=== PATIENT | female | born 1970 | race Caucasian/White ===

== ENCOUNTER 2023-06-27 13:38 | Inpatient (IN) | payer OTHER, SELFPAY ==
[2023-06-27] VITALS (7 sets, daily range): BP systolic 61–145; BP diastolic 45–98; BMI 29.3; BMI 31.2
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
[2023-06-27 12:01] LABS: % Basophils 0.3 % (0-2); % Eosinophils 0.1 % (0-6); % Immature Granulocytes 0.1 % (0-0.5); % Lymphocytes 9.5 % (20.5-51.1); % Monocytes 9.7 % (1.7-9.3); % Neutrophils 80.3 % (42.2-75.2); Absolute Lymphocytes 0.6 10^3/uL (1.2-3.4); Absolute Monocytes 0.7 10^3/uL (0.1-0.6); Absolute Neutrophils 5.4 10^3/uL (1.4-6.5); Hematocrit 27.4 % (37.0-47.0); Hemoglobin 8.5 g/dL (12.0-16.0); Mean Corpuscular Hgb 21.8 pg (27.0-31.0); Mean Corpuscular Volume 70.3 fL (81.0-99.0); Mean Platelet Volume 10.4 fL (7.4-10.4); Nucleated Red Blood Cells % 0 %; Platelet Count 202 10^3/uL (130-400); Red Cell Dist. Width 15.9 % (11.5-14.5); White Blood Cell Count 6.8 10^3/uL (4.8-10.8)
[2023-06-27 12:31] LABS: Alkaline Phosphatase 313 U/L (38-126); Blood Urea Nitrogen 18 mg/dl (7-17); Calcium 9.4 mg/dl (8.4-10.2); Carbon Dioxide 27 mmol/L (22-30); Chloride 99 mmol/L (98-107); Glucose 110 mg/dl (70-99); Potassium 4.7 mmol/L (3.5-5.1); Sodium 131 mmol/L (135-145); eGFR > 60.00
[2023-06-27 12:32] LABS: ALT (SGPT) 43 U/L (0-35); AST (SGOT) 32 U/L (14-36); Albumin 3.3 g/dl (3.5-5.0); Total Bilirubin 0.4 mg/dl (0.2-1.3); Total Protein 6.8 g/dl (6.3-8.2)
[2023-06-27 13:19] LABS: Erythrocyte Sed Rate 21 mm/hour (0-20)
--- NOTE | 2023-06-27 13:29 | HPS.HSE ---
Family Physician
-
Family Physician: Silver Crowder
Chief Complaint
-
Severe right shoulder pain
History of Present Illness
53-year-old female with known history of IV drug abuse here complaining of severe right shoulder pain that started 2 days ago after she woke up from a nap. Denies any history of trauma.
Denies fevers, chills. Denies similar symptoms in the past.
She is a limited historian and does not want to be bothered with more detailed questions regarding her history of osteomyelitis. She told me to go check the chart.
Medical History
Past Medical History
Past Medical History: Reports Other
Additional Past Medical History:
IV drug abuse
HCV
COPD
Endometriosis
Chronic anemia
Peptic ulcer disease
Migraine headaches
Cervical spine osteomyelitis -2021
Lumbar spine osteomyelitis
Left upper extremity wound with osteomyelitis requiring amputation of the arm -2021
Septic emboli to the lungs and brain with subarachnoid hemorrhage -2018
Past Surgical History: Reports Appendectomy, Gynocological and Tonsilectomy
Social History
Tobacco: Smoker
Alcohol: Occasional
Drug: IVDA
Family History
Family History: Not pertinent
Allergies / Home Medications
Allergies reflects when Allergies were last updated in [employer].
Home Medications with original date entered in [employer]
Allergy/Medication List:
Allergies
Allergy/AdvReac Type Severity Reaction Status Date / Time
bee venom protein (honey bee) Allergy Anaphylaxis Verified 02/09/23 09:27
codeine Allergy Hives Verified 02/09/23 09:27
penicillin G Allergy Anaphylaxis Verified 02/09/23 09:27
/childhood
prochlorperazine edisylate Allergy Itching Verified 02/09/23 09:27
[From Compazine]
prochlorperazine maleate Allergy Itching Verified 02/09/23 09:27
[From Compazine]
sumatriptan [From Imitrex] Allergy LOW BP Verified 02/09/23 09:27
sumatriptan succinate Allergy LOW BP Verified 02/09/23 09:27
[From Imitrex]
Home Medications
albuterol sulfate 90 mcg/actuation aerosol inhaler (Proventil HFA) 2 puff inhalation Q4HPRN PRN asthma 01/24/09
sucralfate 100 mg/mL oral suspension (Carafate) 10 ml PO ACHS Gastrointestinal Issue 02/07/23
acetaminophen 325 mg tablet (Tylenol) 650 mg PO Q4H PRN mild pain 06/27/23
albuterol sulfate 2.5 mg/0.5 mL solution for nebulization 2.5 mg inhalation Q4HPRN PRN shortness breath 06/27/23
ibuprofen 200 mg tablet 600 mg PO Q6H PRN mild pain 06/27/23
ondansetron 4 mg disintegrating tablet 4 mg PO Q6HPRN PRN nausea/vomiting 06/27/23
tetrahydrozoline 0.05 %-zinc 0.25 % eye drops (Visine-AC) 1 drp ophthalmic (eye) TIDPRN PRN allergies 06/27/23
Review of Systems
-
History Source: Patient
A 12 point ROS was completed and negative except as noted: Yes
Musculoskeletal: Reports Joint Pain (Right shoulder pain with limited range of motion)
Physical Exam
Vital Signs
Vital Signs
Temp Pulse Resp BP Pulse Ox
99.0 F 85 18 128/98 97
06/27/23 09:55 06/27/23 09:55 06/27/23 09:55 06/27/23 09:55 06/27/23 09:55
Physical Exam
General: Well Developed, Well Nourished, Appears in Distress and Pain
HEENT: NormoCephalic, Anicteric and Moist mucous membranes
Respiratory: Clear
Cardiac: S1/S2 and Regular Rhythm
Breast: Deferred by me
GI: Soft, Non Tender and Non Distended
Genito-urinary: Deferred by me
Musculoskeletal: No Clubbing, No Cyanosis, No Edema and Other (Left arm partial amputation, tenderness of the right shoulder to light palpation, limited range of motion due to pain)
Skin: Warm, Dry and Other (Erythema and edema of the right shoulder with tenderness)
Neuro: AO x 3
Hematologic/Lymphatic: No Lymphadenopathy
Psych: Calm
Laboratory Results
-
06/27/23 11:45
06/27/23 11:45
Laboratory Results
Total Bilirubin 0.4 mg/dl (0.2-1.3) 06/27/23 11:45
AST 32 U/L (14-36) 06/27/23 11:45
ALT 43 U/L (0-35) H 06/27/23 11:45
Alkaline Phosphatase 313 U/L (38-126) H 06/27/23 11:45
Impression/Plan
-
Intractable right shoulder pain -concern for septic arthritis given known history IVDA, history of osteomyelitis. Blood culture sent. Hold antibiotics for now pending further evaluation. Consult ID. Consult IR for arthrocentesis of right
shoulder. Right shoulder ultrasound ordered. Shoulder x-ray negative for fracture or dislocation.
CRP noted to be 192.
IV Dilaudid as needed for pain.
IVDA -high risk for withdrawal symptoms in the hospital. Strongly recommend Suboxone withdrawal protocol but patient currently wants to hold off as she believes she had side effects to the Suboxone that were characterized as delirium in the past.
I tried to explain to her that Suboxone was not the cause of her delirium, as I believe the delirium was most likely due to other reasons. I explained to her that we will not adequately treat her withdrawal symptoms with only as needed Dilaudid.
She remains adamant about avoiding Suboxone for now.
She is interested in going to drug rehab on discharge.
UDS pending.
Hyponatremia -sodium 131. Likely due to excess ADH from severe pain. Fluid restriction ordered.
COPD without exacerbation -continue inhalers.
Chronic microcytic anemia -likely due to chronic iron deficiency anemia. Hemoglobin 8.5 today, baseline unknown. Check anemia labs.
Full code
[2023-06-27] MEDS: DILAUDID 1 MG IV ×2 (13:42→21:08)
[2023-06-27 14:00] LABS: Reticulocyte Count 1.1 % (0.4-2.8)
[2023-06-27 14:05] LABS: Iron 33 ug/dl (37-170)
[2023-06-27 14:15] LABS: Percent Saturation 11 % (20-50); Total Iron Binding Capacity 292 ug/dl (265-497)
[2023-06-27 14:34] LABS: Ferritin 37.9 ng/ml (11.1-264.0)
[2023-06-27 15:05] LABS: Folate > 20.0 ng/ml (2.76-20); Vitamin B12 365 pg/ml (239-931)
--- NOTE | 2023-06-27 16:00 | PTCARENOTE ---
Pt. admitted to [facility] from ED. [facility]. [facility] called to have patient sent down. Admission and nursing assessment done. Transport called for patient to go down to [facility].
[2023-06-27] MEDS: TORADOL 30 MG IV ×2 (16:39→21:09)
--- NOTE | 2023-06-27 16:44 | CON.ID ---
Consultation
-
Date/Time Consultation Requested: 06/27/2023 1323
Date/Time Consultation Performed: 06/27/2023 1545
Requesting Provider: Dr. Morrison
Performing Provider: Dr. Myers
Reason for Consultation: Right shoulder pain
Chief Complaint / Past History
History of Present Illness
Aaliyah Clark is a 53-year-old female being evaluated at the request of Dr. Morrison in regards to right shoulder pain. History is obtained from chart review, along with patient interview, and history obtained from the patient's who is
present at the bedside.
The patient has a significant past medical history of IVDA, along with severe left arm infection 2 years ago requiring amputation above the elbow. She reports that she has been dealing with a wound in the area over the past 2 years and it has not
healed. It does not cause significant discomfort either.
She reports that she woke up 2 days ago and she could not move her right shoulder secondary to pain. She notes no recent trauma. She denies any recent fevers or chills. Pain is associated with both active range of motion along with passive range
of motion. She denies pain in any other areas. She reports that the pain radiates to her neck on the right side.
Past History
Additional Past Medical History:
Hepatitis C
COPD
Endometriosis
Chronic anemia
Peptic ulcer disease
Migraines
Hx cervical spine osteomyelitis (2021
Hx lumbar spine osteomyelitis
Left upper extremity infection with osteomyelitis
Subarachnoid hemorrhage
Additional Past Surgical History:
Left upper extremity amputation
Appendectomy
Tonsillectomy
Allergy History:
bee venom protein (honey bee) Allergy (Verified 02/09/23 09:27)
Anaphylaxis
codeine Allergy (Verified 02/09/23 09:27)
Hives
penicillin G Allergy (Verified 02/09/23 09:27)
Anaphylaxis/childhood
- reports tolerating amoxicillin / augmentin
prochlorperazine edisylate [From Compazine] Allergy (Verified 02/09/23 09:27)
Itching
prochlorperazine maleate [From Compazine] Allergy (Verified 02/09/23 09:27)
Itching
sumatriptan [From Imitrex] Allergy (Verified 02/09/23 09:27)
LOW BP
sumatriptan succinate [From Imitrex] Allergy (Verified 02/09/23 09:27)
LOW BP
Medications Reviewed: Yes
Current Antibiotics:
None
Social History
Tobacco: Non-Smoker
Alcohol: None
Drug: Cocaine, Narcotics and IVDA
Personal:
Living: With Family
Employment: Not Employed
Family History
Family History: Not Pertinent
Review of Systems
Vital Signs
Temp Pulse Resp BP Pulse Ox
98.4 F 61 16 145/70 96
06/27/23 16:26 06/27/23 16:26 06/27/23 16:26 06/27/23 16:00 06/27/23 16:26
Physical Exam
Physical Exam
Constitutional: Chronically Ill and Non-toxic
Eyes: No Conjunctival Hemorrhage
Oral: No Thrush
Cardiovascular: S1/S2; Negative S3/S4
Pulmonary: Non Labored; Negative Wheezes or Rhonchi
Gastrointestinal: Soft, Non Tender, Non Distended and Normal Bowel Sounds
Genito-Urinary: Negative [place]
Musculoskeletal: Other (Right shoulder area with mild erythema. Very tender to palpation in the shoulder area. Positive swelling)
Wound: Other (Left upper arm with chronic wound. No malodor. Minimal purulent drainage. Little tenderness.)
Neurological: Awake and Alert
.
Lab / Diagnostic Study Results
06/27/23 11:45
06/27/23 11:45
Abs Immat Gran (auto) 0.0 10^3/uL (0-0.05) 06/27/23 11:45
Absolute Neuts (auto) 5.4 10^3/uL (1.4-6.5) 06/27/23 11:45
Absolute Lymphs (auto) 0.6 10^3/uL (1.2-3.4) L 06/27/23 11:45
Absolute Monos (auto) 0.7 10^3/uL (0.1-0.6) H 06/27/23 11:45
Absolute Basos (auto) 0.0 10^3/uL (0-0.2) 06/27/23 11:45
Immature Gran % 0.1 % (0-0.5) 06/27/23 11:45
Neutrophils % 80.3 % (42.2-75.2) H 06/27/23 11:45
Lymphocytes % 9.5 % (20.5-51.1) L 06/27/23 11:45
Monocytes % 9.7 % (1.7-9.3) H 06/27/23 11:45
Eosinophils % 0.1 % (0-6) 06/27/23 11:45
Basophils % 0.3 % (0-2) 06/27/23 11:45
ESR 21 mm/hour (0-20) H 06/27/23 11:45
C-Reactive Protein 192.10 mg/L (0.0-10.00) H 06/27/23 11:45
Microbiology Results
Micro:
06/27/23 16:27 MRSA Screen - Pending
Nose
06/27/23 11:44 Blood Culture - Pending
Blood/Venous
06/27/23 11:44 Blood Culture - Pending
Blood/Venous
Imaging:
06/27/2023 X-ray shoulder (right): No findings to confirm cortical fracture, dislocation or focal bony destructive process. No soft tissue calcifications.
Assessment / Plan
Severe right shoulder discomfort
Suspected right shoulder septic arthrits
Active IVDA
Chronic wound LUE
Suspected left humerus osteomyelitis
Hx Hepatitis C
COPD
Endometriosis
Chronic anemia
Peptic ulcer disease
Migraines
Hx cervical spine osteomyelitis (2021
Hx lumbar spine osteomyelitis
Hx Left upper extremity infection with osteomyelitis
Recommendations:
Patient to be evaluated by IR for possible aspiration of the right shoulder. If aspiration performed, please send for cultures and fluid analysis. Thereafter, would begin empiric antibiotics with vancomycin (dosed per pharmacy and cefepime 2 g IV
every 12 hours.
Monitor white count and temperature curve.
Check x-ray of the left humerus to assess for bony destruction. Patient may also require MRI of the area for further delineation of any osteomyelitis.
Care Review
Plan reviewed with: Physician (Hospitalist)
[2023-06-27] MEDS: ATIVAN 1 MG IV (16:45)
[2023-06-27] MEDS: CARAFATE SUSPENSION 1 GM PO ×2 (17:38→21:09)
[2023-06-27] MEDS: LOVENOX 40 MG SC (17:38)
[2023-06-27] MEDS: CATAPRES 0.100000000000000006 MG PO ×2 (17:39→23:56)
--- NOTE | 2023-06-27 18:02 | W.PN.[facility].PR ---
Procedure Note
-
R shoulder aspiration performed under fluoro guidance. No initial return of fluid. Lavage performed w preservative free saline, sample sent for micro.
--- NOTE | 2023-06-27 20:14 | PHA.VAN.IN ---
Assessment
- Assessment
Renal Function: Appears similar to baseline
Concomitant Antimicrobials: CEFEPIME
- Previous Dosing Experience
Previous Regimen: SINGLE 1GM DOSE
AUC Dosing Plan
- Dosing Variables
Dosing Weight (kg): 70
Dosing CrCl (ml/min): 91
Vd coefficient (L/kg): 0.6
- Empiric Dosing
Initial / Loading Dose: 1750MG
Maintenance Regimen: 750MG IV Q12H
Estimated AUC (mcg*h/mL): 465
Estimated Peak (mcg*h/mL): 29
Estimated Trough (mcg/ml): 12
Estimated Half Life (H): 8.7
Pharmacokinetics Vancomycin I
- -
Patient Age: 53
Patient Sex: Female
Vancomycin Day #: 1
Indication: [facility] (SEPTIC ARTHRITIS SHOULDER)
Requesting Provider: LUDA
Pertinent Antimicrobial Allergies:
Allergies
penicillin G Allergy (Verified 02/09/23 09:27)
Anaphylaxis/childhood
Height / Weight:
Height 4 ft 11 in
Actual Weight 70.023 kg
Pertinent Past Medical History: IVDA
- Vital Signs / Lab Results
Temp Pulse Resp BP Pulse Ox
98.4 F 61 15 141/70 96
06/27/23 16:26 06/27/23 17:39 06/27/23 17:21 06/27/23 17:39 06/27/23 17:19
Lab Results - Hematology
06/27/23
11:45
WBC 6.8
Lab Results - Chemistry
06/27/23
11:45
BUN 18 H
Creatinine 0.6
Albumin 3.3 L
Microbiology Results
06/27/23 17:00 Gram Stain - Preliminary
Synovial Fluid
[2023-06-27] MEDS: MAXIPIME 2000 MG IV (21:08)
[2023-06-27] MEDS: VANCOCIN 535 MG IV (21:09)
[2023-06-27] MEDS: STERILE WATER FOR INJECTION 10 ML IV (21:09)
[2023-06-28] MEDS: DILAUDID 1 MG IV ×5 (00:10→21:40)
[2023-06-28] MEDS: TORADOL 30 MG IV ×4 (03:55→21:42)
[2023-06-28] MEDS: CATAPRES 0.100000000000000006 MG PO ×3 (06:26→17:47)
[2023-06-28] MEDS: VANCOCIN 150 IV ×2 (06:27→17:47)
--- NOTE | 2023-06-28 07:00 | W.PN.UPDATE ---
Update Note
Progress Note Update
Full orthopedic consult dictated:
Dx: Atraumatic right shoulder pain
Plan: Patient has been experiencing atraumatic severe right shoulder pain for the past 3 days. X-rays are negative for fracture, dislocation, osteoarthritis or bony lesions. Yesterday IR attempted an aspiration which was dry. They did
lavage the shoulder and took a culture. I recommend MRI of the right shoulder. Continue with antibiotics per ID recommendations. Follow-up once MRI completed.
[2023-06-28 07:48] VITALS: BP 153/64
[2023-06-28] MEDS: STERILE WATER FOR INJECTION 10 ML IV ×2 (09:11→21:41)
[2023-06-28] MEDS: CARAFATE SUSPENSION 1 GM PO ×4 (09:11→21:41)
[2023-06-28] MEDS: MAXIPIME 2000 MG IV ×2 (09:11→21:41)
[2023-06-28 09:22] LABS: % Basophils 0.4 % (0-2); % Immature Granulocytes 0.4 % (0-0.5); % Lymphocytes 14.4 % (20.5-51.1); % Monocytes 6.1 % (1.7-9.3); % Neutrophils 77.7 % (42.2-75.2); Absolute Eosinophils 0.1 10^3/uL (0-0.7); Absolute Lymphocytes 0.7 10^3/uL (1.2-3.4); Absolute Monocytes 0.3 10^3/uL (0.1-0.6); Hematocrit 25.8 % (37.0-47.0); Mean Corpuscular Hgb 21.3 pg (27.0-31.0); Mean Corpuscular Volume 68.8 fL (81.0-99.0); Mean Platelet Volume 9.7 fL (7.4-10.4); Nucleated Red Blood Cells % 0 %; Platelet Count 209 10^3/uL (130-400); Red Blood Cell Count 3.75 10^6/uL (4.20-5.40); Red Cell Dist. Width 16.2 % (11.5-14.5); White Blood Cell Count 5.1 10^3/uL (4.8-10.8)
[2023-06-28 09:36] LABS: ALT (SGPT) 32 U/L (0-35); AST (SGOT) 34 U/L (14-36); Alkaline Phosphatase 260 U/L (38-126); Blood Urea Nitrogen 20 mg/dl (7-17); Carbon Dioxide 24 mmol/L (22-30); Chloride 104 mmol/L (98-107); Estimated Creatinine Clearance 78 ml/min; Glucose 129 mg/dl (70-99); Potassium 4.6 mmol/L (3.5-5.1); Sodium 133 mmol/L (135-145); Total Bilirubin 0.3 mg/dl (0.2-1.3); Total Protein 6.4 g/dl (6.3-8.2); eGFR > 60.00
--- NOTE | 2023-06-28 11:12 | PHA.VAN.FU ---
Vancomycin Assessment / Plan
- Assessment
Renal Function: Stable
WBC's are: WNL
In the past 24 hrs, patient has been: Afebrile
Concomitant Antimicrobials: cefepime
- Dosing Plan
Continue: Vanc 750mg Q12H
- Monitoring Plan
No level(s) ordered at this time: consider levels in next few days
- Follow Up
Pharmacy will continue to follow.
Vancomycin Follow UP
- -
Patient Age: 53
Patient Sex: Female
Vancomycin Day #: 2
Indication: Bone And Joint
Requesting Provider: Dr. Myers
Pertinent Antimicrobial Allergies:
penicillin G - Anaphylaxis/childhood
Height / Weight:
Height 4 ft 11 in
Actual Weight 70.023 kg
Pertinent Past Medical History: BMI ~31, IV JINA
- Vital Signs / Lab Results
Temp Pulse Resp BP Pulse Ox
98.9 F 64 17 153/64 97
06/28/23 07:48 06/28/23 07:48 06/28/23 07:48 06/28/23 07:48 06/28/23 07:48
Lab Results - Hematology
06/27/23 06/28/23
11:45 08:53
WBC 6.8 5.1
Lab Results - Chemistry
06/27/23 06/28/23
11:45 08:53
BUN 18 H 20 H
Creatinine 0.6 0.7
Estimated Creat Clear 78
Albumin 3.3 L 3.0 L
Microbiology Results
06/27/23 11:44 Blood Culture - Preliminary
Blood/Venous Staphylococcus aureus
Gram Stain - Preliminary
06/27/23 17:00 Body Fluid Culture - Preliminary
Synovial Fluid No Growth After 18-24 Hours
Gram Stain - Preliminary
06/27/23 11:44 Blood Culture - Preliminary
Blood/Venous Positive culture in progress
Gram Stain - Final
--- NOTE | 2023-06-28 12:20 | W.PN.HOSP.TC ---
Today's Communication/Plan
-
Continue antibiotics
Await cultures
MRI right shoulder
Wound consult
General surgery
Assessment / Plan
Assessment / Plan
Gen-AAOx3, NAD
HEENT-NC, AT, anicteric, clear oral mm
Neck-supple
CV-reg, no M, +S1/S2
Lungs-clear B/L
Abd-soft, NT, ND
Ext-no edema
Musculoskeletal-no cyanosis, clubbing, limited range of motion right shoulder due to severe pain, left upper extremity stump with draining wound
Skin-warm and dry
Neuro-grossly non-focal
Psych-calm, cooperative
Suspected right shoulder septic arthritis -empiric antibiotics started by infectious disease, cefepime, vancomycin. Blood cultures now turning positive for Staph aureus, sensitivity pending.
Source of bacteremia and sepsis likely due to known history of IVDA.
Attempted arthrocentesis of right shoulder by IR with dry tap, joint was lavaged and fluid sent for culture and Gram stain. Gram stain without WBCs or organisms. Culture without growth so far. Not enough fluid to send for cell count or crystals.
Orthopedics consulted, shoulder MRI pending.
Intractable pain, right shoulder -presumably due to septic arthritis. Continue IV Dilaudid as needed. IV Toradol [id number].
IVDA -high risk for withdrawal symptoms in the hospital. Micro dosing of Subutex ordered by pharmacy but patient so far has refused doses. Clonidine [id number] ordered for xylazine withdrawal.
She is interested in going to drug rehab on discharge.
UDS pending.
Left upper extremity draining wound -concern for chronic osteomyelitis. X-ray noted. Consult general surgery, wound care.
Hyponatremia -sodium 133, improving. Likely due to excess ADH from severe pain. Fluid restriction ordered.
COPD without exacerbation -continue inhalers.
Chronic microcytic anemia - Hemoglobin 8.0 today, baseline unknown. Component of iron deficiency noted based on labs.
Full code
Anticipated Discharge: > 48 hours
Subjective/Interval History
-
Date of Service: June 28, 2023
Patient seen and examined. Still with right shoulder pain but less than yesterday. Looks comfortable.
Objective Data
-
Labs:
Laboratory Results
06/28/23
08:53
WBC 5.1
Hgb 8.0 L
Hct 25.8 L
Plt Count 209
Sodium 133 L
Potassium 4.6
Chloride 104
Carbon Dioxide 24
BUN 20 H
Creatinine 0.7
Glucose 129 H
Calcium 9.0
Total Bilirubin 0.3
AST 34
ALT 32
Alkaline Phosphatase 260 H
Vital Signs:
Vital Signs
Temp Pulse Resp BP Pulse Ox
98.9 F 64 17 153/64 97
06/28/23 07:48 06/28/23 07:48 06/28/23 07:48 06/28/23 07:48 06/28/23 07:48
I&O
06/27/23 06/28/23 06/29/23
06:59 06:59 06:59
Intake Total 775 / 775
Balance 775 / 775
Review of Systems
-
History Source: Patient
All other systems: Reviewed and negative
--- NOTE | 2023-06-28 13:27 | W.PN.ID1 ---
Date of Service
Date of Service: June 28, 2023
Today's Communication
Continue antibiotics. See below�
Assessment / Plan
Severe right shoulder discomfort
Suspected right shoulder septic arthrits
Active IVDA
Staph aureus bacteremia
Chronic wound LUE
Suspected left humerus osteomyelitis
Hx Hepatitis C
COPD
Endometriosis
Chronic anemia
Peptic ulcer disease
Migraines
Hx cervical spine osteomyelitis (2021
Hx lumbar spine osteomyelitis
Hx Left upper extremity infection with osteomyelitis
Recommendations:
Continue vancomycin and cefepime. Follow vancomycin levels.
Repeat blood cultures.
Await further sensitivity data of current positive cultures to guide antibiotic selection and de-escalation.
Patient for MRI of right shoulder. Will also need MRI of left shoulder to delineate exact extent of osteomyelitis.
Monitor white count and temperature curve.
����������������������������������������������������������
Chief Complaint
-: Other (Right shoulder pain; chronic left arm wound)
Subjective / Review of Systems
Patient seen and examined. Reports ongoing right shoulder discomfort and an inability to move her arm to any great extent. Denies fevers or chills.
Vital Signs / Physical Exam
Vital Signs
Vital Signs
Temp Pulse Resp BP Pulse Ox
98.9 F 77 17 153/74 97
06/28/23 07:48 06/28/23 12:11 06/28/23 07:48 06/28/23 12:11 06/28/23 07:48
Physical Exam
Constitutional: No Acute Distress, Comfortable and Non-toxic
Eyes: No Conjunctival Hemorrhage and Sclera Anicteric
Cardiovascular: S1/S2; Negative S3/S4
Pulmonary: Non Labored
Extremities: Negative Edema or Erythema
Musculoskeletal: Other (Right shoulder tenderness to palpation)
Skin: Warm and Dry
Wound: Other (Left upper arm wound present with some purulent drainage. No significant malodor.)
Neurological: Awake and Alert
Psychological: Calm
Objective Data
Lab Data
Lab Results
06/28/23 08:53
06/28/23 08:53
ESR 21 mm/hour (0-20) H 06/27/23 11:45
Estimated Creat Clear 78 ml/min 06/28/23 08:53
Total Bilirubin 0.3 mg/dl (0.2-1.3) 06/28/23 08:53
AST 34 U/L (14-36) 06/28/23 08:53
ALT 32 U/L (0-35) 06/28/23 08:53
Alkaline Phosphatase 260 U/L (38-126) H 06/28/23 08:53
C-Reactive Protein 192.10 mg/L (0.0-10.00) H 06/27/23 11:45
Most recent labs reviewed.
Micro Results:
06/27/23 11:44 Blood Culture - Preliminary
Blood/Venous Staphylococcus aureus
Gram Stain - Preliminary
06/27/23 17:00 Body Fluid Culture - Preliminary
Synovial Fluid No Growth After 18-24 Hours
Gram Stain - Preliminary
06/27/23 11:44 Blood Culture - Preliminary
Blood/Venous Positive culture in progress
Gram Stain - Final
06/27/23 16:27 MRSA Screen - Pending
Nose
Imaging:
06/27/2023 x-ray left arm: Mid humerus with a 9 cm length containing heterogeneous mixed sclerotic and lucent attenuation of the cortical and medullary bone. Cortical loss identified and heterogeneous periosteal reaction, likely related to
age-indeterminate changes of osteomyelitis.
06/27/2023 X-ray shoulder (right): No findings to confirm cortical fracture, dislocation or focal bony destructive process. No soft tissue calcifications.
--- NOTE | 2023-06-28 14:38 | CM ---
Reviewed the chart notes and spoke with the patient at the bedside. The patient resides with her spouse in a split level home with no steps to enter. The patient reports no DME or SNF, but has had VN in the past and could not recall the name of
the agency. The patient confirmed her pharmacy of choice is the [facility] [address] [place]. CM continues to be available to patient/family and is monitoring medical plan for needs at discharge.
Plan: Discharge to home when medically stable.
--- NOTE | 2023-06-28 14:48 | CON.GS ---
Consultation
-
Date/Time Consultation Requested: 06/28/2023 1:30 PM
Date/Time Consultation Performed: 06/28/2023 2:30 PM
Reason for Consultation: Chronic left upper extremity wound
Medical History
-
Chief Complaint: Severe right shoulder pain; chronic open wound at amputation site
History of Present Illness:
Patient is a 53-year-old female who was admitted to the hospitalist service 06/27/2023 secondary to severe right shoulder pain. She had a history of IV drug abuse and left upper extremity osteomyelitis. She underwent an above elbow/distal humerus
amputation at [facility] reportedly in 2021. She has since continued with intermittent follow-up at the [facility] wound care clinic.
Patient states that her left upper extremity wound has been present ever since his operative procedure which never healed. It does not seem as though she regularly seeks care for this wound. She offers no additional specific concerns or questions.
Past Medical History
Past Medical History: Other (IV drug abuse, HCV, COPD, chronic anemia, peptic ulcer disease, migraine headaches, cervical spine osteomyelitis, lumbar spine osteomyelitis, left upper extremity osteomyelitis, septic emboli to the lungs and brain with
subarachnoid hemorrhage)
Past Surgical History: Other (Appendectomy, tonsils, left upper extremity amputation)
Social History
Tobacco: Smoker
Alcohol: Occasional
Drug: IVDA
Family History
Family History: Unable to Obtain
Allergies / Home Medications
Allergy/AdvReac Type Severity Reaction Status Date / Time
bee venom protein (honey bee) Allergy Anaphylaxis Verified 02/09/23 09:27
codeine Allergy Hives Verified 02/09/23 09:27
penicillin G Allergy Anaphylaxis Verified 02/09/23 09:27
/childhood
prochlorperazine edisylate Allergy Itching Verified 02/09/23 09:27
[From Compazine]
prochlorperazine maleate Allergy Itching Verified 02/09/23 09:27
[From Compazine]
sumatriptan [From Imitrex] Allergy LOW BP Verified 02/09/23 09:27
sumatriptan succinate Allergy LOW BP Verified 02/09/23 09:27
[From Imitrex]
�Medication �Instructions �Recorded �Confirmed �Type
albuterol sulfate 90 mcg/actuation 2 puff inhalation Q4HPRN PRN asthma 01/24/09 06/27/23 History
aerosol inhaler (Proventil HFA)
sucralfate 100 mg/mL oral 10 ml PO ACHS Gastrointestinal 02/07/23 06/27/23 History
suspension (Carafate) Issue
acetaminophen 325 mg tablet 650 mg PO Q4H PRN mild pain 06/27/23 06/27/23 History
(Tylenol)
albuterol sulfate 2.5 mg/0.5 mL 2.5 mg inhalation Q4HPRN PRN 06/27/23 06/27/23 History
solution for nebulization shortness breath
ibuprofen 200 mg tablet 600 mg PO Q6H PRN mild pain 06/27/23 06/27/23 History
ondansetron 4 mg disintegrating 4 mg PO Q6HPRN PRN nausea/vomiting 06/27/23 06/27/23 History
tablet
tetrahydrozoline 0.05 %-zinc 0.25 1 drp ophthalmic (eye) TIDPRN PRN 06/27/23 06/27/23 History
% eye drops (Visine-AC) allergies
Review of Systems
-
Unable to obtain full review of systems at this time due to: Other (Patient is poor historian and does not volunteer much medical information)
History Source: Patient
A 10 point review of systems was completed, and was negative except as per HPI.
Physical Exam
Vital Signs
Temp Pulse Resp BP Pulse Ox
98.9 F 77 17 153/74 97
06/28/23 07:48 06/28/23 12:11 06/28/23 07:48 06/28/23 12:11 06/28/23 07:48
0506/28/23 06/29/23
06:59 06:59 06:59
Actual Weight 70.023 kg
Body Mass Index (BMI) 31.2
Lab Results
06/28/23 08:53
06/28/23 08:53
WBC 5.1 10^3/uL (4.8-10.8) 06/28/23 08:53
Hgb 8.0 g/dL (12.0-16.0) L 06/28/23 08:53
Hct 25.8 % (37.0-47.0) L 06/28/23 08:53
Plt Count 209 10^3/uL (130-400) 06/28/23 08:53
Abs Immat Gran (auto) 0.0 10^3/uL (0-0.05) 06/28/23 08:53
Neutrophils % 77.7 % (42.2-75.2) H 06/28/23 08:53
Physical Exam
General: No Apparent Distress, Comfortable and Other (Chronically ill-appearing and older than her stated age)
Respiratory: Non Labored Respirations
Musculoskeletal: Other (Left upper extremity wound examined. Large area of hypertrophied granulation tissue overlying the anterior lateral left humerus region. Firm and suspect that this is immediately over the bone. There is buildup of
sloughing. There is no necrotic tissue. Malodorous.)
Data Reviewed
-
Radiology: Report Reviewed by me, Discussed with Physician, Discussed with Patient and Other (Left elbow x-ray: Findings consistent with previous amputation. Cortical margins and trabecular pattern of the distal humerus appear maintained mid
humerus 9 cm length heterogeneous make sclerotic and lucent attenuation of the cortical and medullary bone likely related to osteomyelitis.)
Assessment / Plan
-
Assessment/Plan: 53-year-old female with chronic left upper extremity wound and humeral osteo since undergoing left upper extremity amputation for radial/ulnar osteomyelitis at [facility] in 2021.
Per patient this is a nonhealing wound that she has had since 2001 at the time of her amputation.
There is buildup of sloughing and an abundance of granulation tissue. I suspect that the humerus is exposed immediately under the chronic granulation tissue but it is not visible. There is no fluctuance nor examination findings suggestive of
undrained abscess.
Based on the chronicity of this wound and abundance of granulation tissue and degree of underlying osteomyelitis I do not think that there is any role for superficial soft tissue surgical debridement.
Would adjust local wound care to include Dakin's washing and Dakin's wet-to-dry dressings over this area to decolonize current bacterial buildup
Apply Santyl for enzymatic debridement of any sloughing buildup or devitalized tissues
Unfortunately the only option likely for long-term healing would be a higher level amputation which may be at the left shoulder level. Could consider LUE MRI to better elucidate degree of underlying osteomyelitis which could subsequently guide
further consideration of amputation.
If patient was agreeable to such invasive measures then would have upper extremity welding process specialist involved for this procedure as general surgery has very limited exposure/experience with upper extremity amputations.
Updated hospitalist
Will follow peripherally, please call if can be of further assistance with care.
Thank you
[2023-06-28 15:40] VITALS: BP 123/57
--- NOTE | 2023-06-28 16:32 | WOUNDNOTE ---
LEFT UPPER ARM
--- NOTE | 2023-06-28 16:32 | WOUNDNOTE ---
[facility] RN- Reviewed chart, met with patient and spoke to RNJamilah. Surgery has seen patient and ordered Dakins moistened gauze and Santyl BID. Wound care provided per order, and patient tolerated well. Patient declined to turn for sacral check. Heels
intact. Patient states she ambulates without assistance and has good appetite. Will continue to follow as needed.
[2023-06-28] MEDS: LOVENOX 40 MG SC (19:48)
[2023-06-28] MEDS: DAKIN'S SOLUTION 0.125% 1/4 STRENGTH 473 ML TOPICAL (21:41)
[2023-06-28 23:38] VITALS: BP 137/54
[2023-06-29] MEDS: CATAPRES 0.100000000000000006 MG PO ×5 (00:43→23:18)
[2023-06-29] MEDS: TORADOL 30 MG IV ×4 (03:29→23:00)
[2023-06-29] MEDS: DILAUDID 1 MG IV ×5 (03:29→23:16)
[2023-06-29] MEDS: VANCOCIN 150 IV ×2 (06:01→17:43)
[2023-06-29 07:38] LABS: % Basophils 0.3 % (0-2); % Eosinophils 2.8 % (0-6); % Immature Granulocytes 0.3 % (0-0.5); % Lymphocytes 20.7 % (20.5-51.1); % Monocytes 11.6 % (1.7-9.3); % Neutrophils 64.3 % (42.2-75.2); Absolute Eosinophils 0.1 10^3/uL (0-0.7); Absolute Lymphocytes 0.8 10^3/uL (1.2-3.4); Absolute Monocytes 0.5 10^3/uL (0.1-0.6); Absolute Neutrophils 2.6 10^3/uL (1.4-6.5); Hematocrit 23.9 % (37.0-47.0); Hemoglobin 7.1 g/dL (12.0-16.0); Mean Corp Hgb Conc. 29.7 g/dL (33.0-37.0); Mean Corpuscular Hgb 21.5 pg (27.0-31.0); Mean Corpuscular Volume 72.2 fL (81.0-99.0); Mean Platelet Volume 9.6 fL (7.4-10.4); Nucleated Red Blood Cells % 0 %; Platelet Count 183 10^3/uL (130-400); Red Blood Cell Count 3.31 10^6/uL (4.20-5.40); Red Cell Dist. Width 16.2 % (11.5-14.5)
[2023-06-29 07:56] VITALS: BP 136/88
[2023-06-29 08:14] LABS: ALT (SGPT) 26 U/L (0-35); AST (SGOT) 25 U/L (14-36); Albumin 2.8 g/dl (3.5-5.0); Alkaline Phosphatase 206 U/L (38-126); Blood Urea Nitrogen 22 mg/dl (7-17); Calcium 8.8 mg/dl (8.4-10.2); Carbon Dioxide 26 mmol/L (22-30); Chloride 104 mmol/L (98-107); Estimated Creatinine Clearance 78 ml/min; Glucose 108 mg/dl (70-99); Potassium 4.6 mmol/L (3.5-5.1); Sodium 132 mmol/L (135-145); Total Bilirubin 0.2 mg/dl (0.2-1.3); eGFR > 60.00
--- NOTE | 2023-06-29 08:14 | W.PN.UPDATE ---
Update Note
Progress Note Update
Seen this AM; pending MRI of shoulder, CX NGTD.
-requesting ativan 2mg prior to MRI for difficulty with laying flat and claustrophobia; on order. Will recheck post-MRI; reports no changes to shoulder symptoms.
[2023-06-29] MEDS: CARAFATE SUSPENSION 1 GM PO ×4 (08:25→23:00)
[2023-06-29] MEDS: DAKIN'S SOLUTION 0.125% 1/4 STRENGTH 1 ML TOPICAL (08:25)
[2023-06-29] MEDS: MAXIPIME 2000 MG IV ×2 (08:31→20:45)
[2023-06-29] MEDS: SANTYL OINTMENT 1 APPLIC TOPICAL (08:32)
[2023-06-29] MEDS: STERILE WATER FOR INJECTION 10 ML IV ×2 (08:33→20:46)
--- NOTE | 2023-06-29 09:24 | PHA.VAN.FU ---
Vancomycin Assessment / Plan
- Assessment
Renal Function: Stable
In the past 24 hrs, patient has been: Afebrile
Concomitant Antimicrobials: cefepime
- Dosing Plan
Continue: Vanc 750mg Q12H
- Monitoring Plan
No level(s) ordered at this time: consider levels in next few days
- Follow Up
Pharmacy will continue to follow.
Vancomycin Follow UP
- -
Patient Age: 53
Patient Sex: Female
Vancomycin Day #: 3
Indication: Bone And Joint
Requesting Provider: Dr. Myers
Pertinent Antimicrobial Allergies:
penicillin G - Anaphylaxis/childhood
Height / Weight:
Height 4 ft 11 in
Actual Weight 70.023 kg
Pertinent Past Medical History: BMI ~31, IV JINA
- Vital Signs / Lab Results
Temp Pulse Resp BP Pulse Ox
98.4 F 61 17 136/88 97
06/29/23 07:56 06/29/23 07:56 06/29/23 07:56 06/29/23 07:56 06/29/23 07:56
Lab Results - Hematology
06/27/23 06/28/23 06/29/23
11:45 08:53 07:26
WBC 6.8 5.1 4.0 L
Lab Results - Chemistry
06/27/23 06/28/23 06/29/23
11:45 08:53 07:26
BUN 18 H 20 H 22 H
Creatinine 0.6 0.7 0.7
Estimated Creat Clear 78 78
Albumin 3.3 L 3.0 L 2.8 L
Microbiology Results
06/27/23 11:44 Blood Culture - Preliminary
Blood/Venous Staphylococcus aureus
Gram Stain - Final
06/27/23 11:44 Blood Culture - Preliminary
Blood/Venous Staphylococcus aureus
Gram Stain - Final
05/01/24 16:27 MRSA Screen - Preliminary
Nose Culture in Progress
06/27/23 17:00 Body Fluid Culture - Preliminary
Synovial Fluid No Growth After 18-24 Hours
Gram Stain - Preliminary
--- NOTE | 2023-06-29 09:40 | W.PN.ID1 ---
Date of Service
Date of Service: June 29, 2023
Today's Communication
Continue antibiotics. Await MRI
Assessment / Plan
Severe right shoulder discomfort
Suspected right shoulder septic arthrits
Active IVDA
Staph aureus bacteremia
Chronic wound LUE (~2 yrs)
Suspected left humerus osteomyelitis
Hx Hepatitis C
COPD
Endometriosis
Chronic anemia
Peptic ulcer disease
Migraines
Hx cervical spine osteomyelitis (2021
Hx lumbar spine osteomyelitis
Hx Left upper extremity infection with osteomyelitis
Recommendations:
Continue vancomycin and cefepime. Follow vancomycin levels.
Repeat blood cultures pending
Await further sensitivity data of current positive cultures to guide antibiotic selection and de-escalation.
Patient for MRI of right shoulder. Will also need MRI of left shoulder to delineate exact extent of osteomyelitis.
Monitor white count and temperature curve.
����������������������������������������������������������
Chief Complaint
-: Other (Right shoulder pain; chronic left arm wound)
Subjective / Review of Systems
Patient seen and examined. Reports ongoing right shoulder pain.
Review of Systems: No Fever and No Chills
Vital Signs / Physical Exam
Vital Signs
Vital Signs
Temp Pulse Resp BP Pulse Ox
98.4 F 61 17 136/88 97
06/29/23 07:56 06/29/23 07:56 06/29/23 07:56 06/29/23 07:56 06/29/23 07:56
Physical Exam
Constitutional: No Acute Distress, Comfortable, Chronically Ill and Non-toxic
Eyes: Sclera Anicteric
Cardiovascular: S1/S2; Negative S3/S4
Pulmonary: Non Labored
Gastrointestinal: Soft, Non Tender and Non Distended
Musculoskeletal: Other (Right shoulder with tenderness to palpation; slightly decreased.. Slight increase in PROM)
Wound: Other (Left humeral wound dressed.)
Neurological: Awake and Alert
Psychological: Calm
Objective Data
Lab Data
Lab Results
06/29/23 07:26
06/29/23 07:26
ESR 21 mm/hour (0-20) H 06/27/23 11:45
Estimated Creat Clear 78 ml/min 06/29/23 07:26
Total Bilirubin 0.2 mg/dl (0.2-1.3) 06/29/23 07:26
AST 25 U/L (14-36) 06/29/23 07:26
ALT 26 U/L (0-35) 06/29/23 07:26
Alkaline Phosphatase 206 U/L (38-126) H 06/29/23 07:26
C-Reactive Protein 192.10 mg/L (0.0-10.00) H 06/27/23 11:45
Most recent labs reviewed.
Micro Results:
06/27/23 11:44 Blood Culture - Preliminary
Blood/Venous Staphylococcus aureus
Gram Stain - Final
06/27/23 11:44 Blood Culture - Preliminary
Blood/Venous Staphylococcus aureus
Gram Stain - Final
06/27/23 16:27 MRSA Screen - Preliminary
Nose Culture in Progress
06/28/23 17:54 Blood Culture - Pending
Blood/Venous
06/28/23 14:47 Blood Culture - Pending
Blood/Venous
06/27/23 17:00 Body Fluid Culture - Preliminary
Synovial Fluid No Growth After 18-24 Hours
Gram Stain - Preliminary
Imaging:
06/27/2023 x-ray left arm: Mid humerus with a 9 cm length containing heterogeneous mixed sclerotic and lucent attenuation of the cortical and medullary bone. Cortical loss identified and heterogeneous periosteal reaction, likely related to
age-indeterminate changes of osteomyelitis.
06/27/2023 X-ray shoulder (right): No findings to confirm cortical fracture, dislocation or focal bony destructive process. No soft tissue calcifications.
[2023-06-29] MEDS: ATIVAN 2 MG PO (10:14)
--- NOTE | 2023-06-29 10:46 | CM ---
Reviewed the chart notes. Patient scheduled for MRI of LUE. CM continues to be available to patient/family and is monitoring medical plan for needs at discharge.
Plan: Discharge plans will depend on progress and MRI results.
--- NOTE | 2023-06-29 11:00 | W.PN.HOSP.TC ---
Today's Communication/Plan
-
MRI
Heme check stools
IV iron
Monitor hemoglobin
Assessment / Plan
Assessment / Plan
Gen-AAOx3, NAD
HEENT-NC, AT, anicteric, clear oral mm
Neck-supple
CV-reg, no M, +S1/S2
Lungs-clear B/L
Abd-soft, NT, ND
Ext-no edema
Musculoskeletal-no cyanosis, clubbing, limited range of motion right shoulder due to severe pain, left upper extremity stump with draining wound
Skin-warm and dry
Neuro-grossly non-focal
Psych-calm, cooperative
Suspected right shoulder septic arthritis -empiric antibiotics started by infectious disease, cefepime, vancomycin. Blood cultures now turning positive for Staph aureus, sensitivity pending.
Source of bacteremia and sepsis likely due to known history of IVDA.
Attempted arthrocentesis of right shoulder by IR with dry tap, joint was lavaged and fluid sent for culture and Gram stain. Gram stain without WBCs or organisms. Culture without growth so far. Not enough fluid to send for cell count or crystals.
Orthopedics consulted, shoulder MRI pending.
Intractable pain, right shoulder -presumably due to septic arthritis. Continue IV Dilaudid as needed. IV Toradol [id number].
IVDA -high risk for withdrawal symptoms in the hospital. Micro-dosing of Subutex ordered by pharmacy but patient so far has refused doses. Clonidine [id number] ordered for xylazine withdrawal.
She is interested in going to drug rehab on discharge. I spoke with patient's nurse today about opioid withdrawal protocol. Currently she is not meeting criteria for dosing of Subutex. Patient very concerned about developing withdrawal symptoms.
However, she looks very comfortable currently.
Left upper extremity draining wound -concern for chronic osteomyelitis. X-ray noted. Appreciate general surgery input. Continue local wound care.
Hyponatremia -sodium stable. Likely due to excess ADH from severe pain. Fluid restriction ordered.
COPD without exacerbation -continue inhalers.
Acute on chronic microcytic anemia - Hemoglobin 7.1 today, baseline unknown. Component of iron deficiency noted based on labs. Heme check stools. Monitor hemoglobin. No obvious bleeding. IV iron ordered.
Full code
Anticipated Discharge: > 48 hours
Subjective/Interval History
-
Date of Service: June 29, 2023
Patient seen and examined. 5 out of 10 right shoulder pain, slowly improving. No other complaints.
Objective Data
-
Labs:
Laboratory Results
06/29/23
07:26
WBC 4.0 L
Hgb 7.1 L
Hct 23.9 L
Plt Count 183
Sodium 132 L
Potassium 4.6
Chloride 104
Carbon Dioxide 26
BUN 22 H
Creatinine 0.7
Glucose 108 H
Calcium 8.8
Total Bilirubin 0.2
AST 25
ALT 26
Alkaline Phosphatase 206 H
Vital Signs:
Vital Signs
Temp Pulse Resp BP Pulse Ox
98.4 F 61 17 136/88 97
06/29/23 07:56 06/29/23 07:56 06/29/23 07:56 06/29/23 07:56 06/29/23 07:56
I&O
06/28/23 06/29/23 06/30/23
06:59 06:59 06:59
Intake Total 775 / 775 1110 / 1110
Balance 775 / 775 1110 / 1110
Review of Systems
-
History Source: Patient
All other systems: Reviewed and negative
[2023-06-29] MEDS: FERRLECIT 110 MG IV (14:21)
[2023-06-29] MEDS: PROTONIX 40 MG PO (14:25)
[2023-06-29 15:31] VITALS: BP 123/66
--- NOTE | 2023-06-29 16:31 | W.PN.UPDATE ---
Update Note
Progress Note Update
MRI of the right shoulder shows severe septic arthritis involving the acromioclavicular joint with severe bone marrow edema about the distal clavicle and acromion raising the possibility of acute myelitis. Extensive soft tissue edema involving the
supraspinatus muscle. Moderate tendinosis right supraspinatus tendon. No rotator cuff tear. Dr. Chopra has placed her on the operating room schedule tomorrow morning for open right acromioclavicular joint irrigation and debridement. She will be
n.p.o. after midnight. Surgical consent signed by patient and surgical location marked. Risks potential complications reviewed, questions answered and she understands that she might need repeat surgery.
[2023-06-29] MEDS: LOVENOX 40 MG SC (17:44)
[2023-06-29] MEDS: FLUSH (NSS) 3 FLUSH IV (20:45)
[2023-06-29] MEDS: DAKIN'S SOLUTION 0.125% 1/4 STRENGTH 5 ML TOPICAL (20:49)
[2023-06-29] MEDS: FLUSH (NSS) 2 FLUSH IV (23:01)
[2023-06-29 23:47] VITALS: BP 126/65
[2023-06-30] VITALS (9 sets, daily range): BP systolic 97–170; BP diastolic 59–93
[2023-06-30] MEDS: TORADOL 30 MG IV ×3 (04:04→16:14)
[2023-06-30] MEDS: FLUSH (NSS) 2 FLUSH IV ×9 (04:05→20:40)
[2023-06-30] MEDS: ZOFRAN ODT (ORALLY DISINTEGRATING) 4 MG PO ×2 (04:10→17:04)
[2023-06-30 05:24] LABS: % Basophils 0.3 % (0-2); % Eosinophils 5.4 % (0-6); % Immature Granulocytes 0.3 % (0-0.5); % Lymphocytes 21.9 % (20.5-51.1); % Monocytes 12.8 % (1.7-9.3); % Neutrophils 59.3 % (42.2-75.2); Absolute Eosinophils 0.2 10^3/uL (0-0.7); Absolute Lymphocytes 0.8 10^3/uL (1.2-3.4); Absolute Monocytes 0.5 10^3/uL (0.1-0.6); Absolute Neutrophils 2.1 10^3/uL (1.4-6.5); Hematocrit 24.2 % (37.0-47.0); Mean Corp Hgb Conc. 28.9 g/dL (33.0-37.0); Mean Corpuscular Hgb 21.2 pg (27.0-31.0); Mean Corpuscular Volume 73.3 fL (81.0-99.0); Mean Platelet Volume 10.4 fL (7.4-10.4); Nucleated Red Blood Cells % 0 %; Platelet Count 186 10^3/uL (130-400); White Blood Cell Count 3.5 10^3/uL (4.8-10.8)
[2023-06-30] MEDS: VANCOCIN 150 IV (05:27)
[2023-06-30] MEDS: CATAPRES 0.100000000000000006 MG PO ×3 (05:56→19:08)
[2023-06-30 07:14] LABS: Anisocytosis 1+; Hypochromasia 1+; Normal RBC Morphology No; Ovalocytes 1+; Polychromasia 1+
[2023-06-30] MEDS: CARAFATE SUSPENSION PO (08:23)
[2023-06-30] MEDS: MAXIPIME 2000 MG IV (08:26)
[2023-06-30] MEDS: PROTONIX 40 MG PO (08:26)
[2023-06-30] MEDS: DILAUDID 1 MG IV ×4 (08:26→19:33)
[2023-06-30] MEDS: STERILE WATER FOR INJECTION 10 ML IV (08:26)
--- NOTE | 2023-06-30 08:55 | W.PN.HOSP.TC ---
Today's Communication/Plan
-
Continue antibiotics
Transfuse 1 unit
OR today
Assessment / Plan
Assessment / Plan
Gen-AAOx3, NAD
HEENT-NC, AT, anicteric, clear oral mm
Neck-supple
CV-reg, no M, +S1/S2
Lungs-clear B/L
Abd-soft, NT, ND
Ext-no edema
Musculoskeletal-no cyanosis, clubbing, limited range of motion right shoulder due to severe pain, left upper extremity stump with draining wound
Skin-warm and dry
Neuro-grossly non-focal
Psych-calm, cooperative
Acute right AC joint septic arthritis/acute osteomyelitis -MRI findings noted. Possible abscess of the AC joint as well. Awaiting drainage in the OR by orthopedics today. NPO. Currently on IV cefepime and vancomycin, infectious disease following.
Staph aureus bacteremia -likely due to IV drug abuse. Sensitivity pending. MRSA screen pending. White blood cell count normal on admission but now leukopenic, afebrile.
Intractable pain, right shoulder -presumably due to septic arthritis. Continue IV Dilaudid as needed. IV Toradol [id number].
IVDA -high risk for withdrawal symptoms in the hospital. Micro-dosing of Subutex ordered by pharmacy but patient so far has refused doses. Clonidine [id number] ordered for xylazine withdrawal.
She is interested in going to drug rehab on discharge.
Left upper extremity draining wound -concern for chronic osteomyelitis. X-ray noted. Appreciate general surgery input. Continue local wound care. I spoke with and patient about this, recommend outpatient follow-up with her surgeons in
[place] for further management. We do not have the expertise in our facility to deal with left upper extremity amputation.
Hyponatremia -sodium stable. Likely due to excess ADH from severe pain. Fluid restriction ordered.
COPD without exacerbation -continue inhalers.
Acute on chronic microcytic anemia - Hemoglobin 7.0 today, baseline unknown. Component of iron deficiency noted based on labs. Heme check stools. No obvious bleeding. IV iron ordered. Transfuse 1 unit of blood today. CBC in the morning.
Full code
updated at the bedside.
Anticipated Discharge: > 48 hours
Subjective/Interval History
-
Date of Service: June 30, 2023
Patient seen and examined. Pain is relatively controlled.
Objective Data
-
Labs:
Laboratory Results
06/30/23
05:06
WBC 3.5 L
Hgb 7.0 L
Hct 24.2 L
Plt Count 186
Vital Signs:
Vital Signs
Temp Pulse Resp BP Pulse Ox
98.9 F 57 18 133/59 97
06/29/23 23:47 06/30/23 05:56 06/29/23 23:47 06/30/23 05:56 06/29/23 23:47
I&O
06/29/23 06/30/23 07/01/23
06:59 06:59 06:59
Intake Total 1110 / 1110 1230 / 1230
Balance 1110 / 1110 1230 / 1230
Review of Systems
-
History Source: Patient
All other systems: Reviewed and negative
[2023-06-30] MEDS: TORADOL IV ×2 (10:00→11:46)
[2023-06-30] MEDS: DILAUDID 0.5 MG IV ×3 (11:05→11:40)
[2023-06-30] MEDS: DEMEROL 12.5 MG IV ×2 (11:23→11:32)
--- NOTE | 2023-06-30 11:38 | W.PN.ID1 ---
Date of Service
Date of Service: June 30, 2023
Today's Communication
Start cefazolin; stop vancomycin/cefepime
Intranasal mupirocin given colonization with MRSA
contact precautions
Assessment / Plan
Severe right shoulder discomfort
Suspected right shoulder septic arthrits
Active IVDA
Staph aureus bacteremia
Chronic wound LUE (~2 yrs)
Suspected left humerus osteomyelitis
Hx Hepatitis C
COPD
Endometriosis
Chronic anemia
Peptic ulcer disease
Migraines
Hx cervical spine osteomyelitis (2021
Hx lumbar spine osteomyelitis
Hx Left upper extremity infection with osteomyelitis
Recommendations:
5/4S/p resection of distal R clavical and washout for osteomyelitis, septic joint and abscess
Appreciate Dr Chopra and orthopedics team assistance
Repeat blood cultures positive
Continue to repeat blood cultures daily until clear
TTE
Monitor white count and temperature curve.
Start cefazolin; stop vancomycin/cefepime
Intranasal mupirocin given colonization with MRSA
contact precautions
����������������������������������������������������������
Chief Complaint
-: Other (Right shoulder pain; chronic left arm wound)
Subjective / Review of Systems
afebrile
bp stable
declining wbc count
cr o.7
colonized with mrsa however bacteremia is mssa
MRI right shoulder - SEVERE SEPTIC ARTHRITIS of the RIGHT ACROMIOCLAVICULAR JOINT with severe bone marrow edema in the distal clavicle and acromion (possibly acute osteomyelitis) and extensive surrounding soft tissue edema involving the
supraspinatus muscle, trapezius muscle, and subcutaneous fat; 2.8 cm phlegmon
Taken to the OR - minimal pus; distal clavicle resected
Vital Signs / Physical Exam
Vital Signs
Vital Signs
Temp Pulse Resp BP Pulse Ox
97.4 F 61 14 134/93 100
06/30/23 10:55 06/30/23 11:30 06/30/23 11:30 06/30/23 11:30 06/30/23 11:30
Physical Exam
Constitutional: No Acute Distress and Chronically Ill
Cardiovascular: Regular Rate and S1/S2; Negative Murmur or Rub
Pulmonary: Clear and Symmetric; Negative Wheezes or Rales
Gastrointestinal: Soft, Non Tender, Non Distended and Normal Bowel Sounds
Skin: Warm and Dry; Negative Rash or Jaundice
Wound: Other (post op dressing clean; L arm wound with granulation tissue, minimal serous drainage, no odor, no surrounding erythema)
Objective Data
Lab Data
Lab Results
06/30/23 05:06
06/29/23 07:26
ESR 21 mm/hour (0-20) H 06/27/23 11:45
Estimated Creat Clear 78 ml/min 06/29/23 07:26
Total Bilirubin 0.2 mg/dl (0.2-1.3) 06/29/23 07:26
AST 25 U/L (14-36) 06/29/23 07:26
ALT 26 U/L (0-35) 06/29/23 07:26
Alkaline Phosphatase 206 U/L (38-126) H 06/29/23 07:26
C-Reactive Protein 192.10 mg/L (0.0-10.00) H 06/27/23 11:45
Most recent labs reviewed.
Micro Results:
06/30/23 10:21 Anaerobic Culture - Pending
Shoulder - Right
06/30/23 10:21 Wound Culture - Pending
Shoulder - Right Gram Stain - Pending
06/30/23 10:22 Tissue Culture - Pending
Bone Gram Stain - Pending
06/27/23 11:44 Blood Culture - Final
Blood/Venous S aureus-Methicillin Sensitive
Gram Stain - Final
06/27/23 11:44 Blood Culture - Final
Blood/Venous S aureus-Methicillin Sensitive
Gram Stain - Final
06/27/23 16:27 MRSA Screen - Final
Nose Staph aureus MRSA
06/28/23 17:54 Blood Culture - Preliminary
Blood/Venous Positive culture in progress
Gram Stain - Final
06/28/23 14:47 Blood Culture - Preliminary
Blood/Venous No Growth in 24 hours- Final report to follow
06/27/23 17:00 Body Fluid Culture - Preliminary
Synovial Fluid No Growth After 48 Hours
Gram Stain - Preliminary
Imaging:
06/27/2023 x-ray left arm: Mid humerus with a 9 cm length containing heterogeneous mixed sclerotic and lucent attenuation of the cortical and medullary bone. Cortical loss identified and heterogeneous periosteal reaction, likely related to
age-indeterminate changes of osteomyelitis.
06/27/2023 X-ray shoulder (right): No findings to confirm cortical fracture, dislocation or focal bony destructive process. No soft tissue calcifications.
Care Review
Plan reviewed with: Physician (Dr Chopra - OR findings)
--- NOTE | 2023-06-30 11:55 | PHA.VAN.FU ---
Vancomycin Assessment / Plan
- Assessment
Renal Function: Stable
WBC's are: Trending Down
In the past 24 hrs, patient has been: Afebrile
Concomitant Antimicrobials: cefepime
- Dosing Plan
Continue: vancomycin 750 mg q12h
- Monitoring Plan
Peak Level: 06/30/232029
Trough Level: 07/01/23 0530
- Follow Up
Pharmacy will continue to follow.
Vancomycin Follow UP
- -
Patient Age: 53
Patient Sex: Female
Vancomycin Day #: 4
Indication: Bone And Joint
Requesting Provider: Dr. Myers
Pertinent Antimicrobial Allergies:
penicillin G - Anaphylaxis/childhood
Height / Weight:
Height 4 ft 11 in
Actual Weight 70.023 kg
Pertinent Past Medical History: BMI ~31, IV JINA
- Vital Signs / Lab Results
Temp Pulse Resp BP Pulse Ox
97.4 F 61 14 166/68 97
06/30/23 10:55 06/30/23 11:45 06/30/23 11:45 06/30/23 11:45 06/30/23 11:45
Lab Results - Hematology
06/27/23 06/28/23 06/29/23
11:45 08:53 07:26
WBC 6.8 5.1 4.0 L
06/30/23
05:06
WBC 3.5 L
Lab Results - Chemistry
06/27/23 06/28/23 06/29/23
11:45 08:53 07:26
BUN 18 H 20 H 22 H
Creatinine 0.6 0.7 0.7
Estimated Creat Clear 78 78
Albumin 3.3 L 3.0 L 2.8 L
Microbiology Results
06/27/23 17:00 Body Fluid Culture - Final
Synovial Fluid No Growth After 72 Hours
Gram Stain - Final
06/27/23 11:44 Blood Culture - Final
Blood/Venous S aureus-Methicillin Sensitive
Gram Stain - Final
06/27/23 11:44 Blood Culture - Final
Blood/Venous S aureus-Methicillin Sensitive
Gram Stain - Final
06/27/23 16:27 MRSA Screen - Final
Nose Staph aureus MRSA
06/28/23 17:54 Blood Culture - Preliminary
Blood/Venous Positive culture in progress
Gram Stain - Final
06/28/23 14:47 Blood Culture - Preliminary
Blood/Venous No Growth in 24 hours- Final report to follow
[2023-06-30] MEDS: CARAFATE SUSPENSION 1 GM PO ×2 (12:10→16:15)
[2023-06-30] MEDS: BACTROBAN 2% OINTMENT 1 APPLIC NASAL ×2 (12:10→20:41)
[2023-06-30] MEDS: DAKIN'S SOLUTION 0.125% 1/4 STRENGTH 473 ML TOPICAL (12:11)
[2023-06-30] MEDS: ANCEF 10 IV ×2 (13:13→20:39)
[2023-06-30] MEDS: FERRLECIT 110 MG IV (15:10)
[2023-06-30] MEDS: LOVENOX 40 MG SC (19:08)
[2023-06-30] MEDS: SANTYL OINTMENT 1 APPLIC TOPICAL (20:38)
[2023-06-30] MEDS: DAKIN'S SOLUTION 0.125% 1/4 STRENGTH 5 ML TOPICAL (20:40)
--- NOTE | 2023-06-30 20:53 | W.PN.UPDATE ---
Update Note
Progress Note Update
Notified by nursing to see patient. Patient insisted she would like to leave tonight as she has personal matters to take care of. Patient reports she will go to [facility] for further treatment once personal matters are taken care of. Advised
patient that this would be AMA, as she had procedure done today and is in need of further treatment. Explained the need for further treatment with IV antibiotic, and risks of leaving AMA including . Patient verbalized understanding, patient's
at the bedside during discussion. Patient's will transport patient home.
--- NOTE | 2023-06-30 21:24 | PTCARENOTE ---
Patient left AMA. She met with covering provider and signed AMA paperwork. Right Midline was removed by IV team. She had all 8pm medications. Dressing on left upper arm was redressed. Patient left with her significant other.
== END 2023-06-30 21:25 | disposition left against medical advice (07) | DRG 854 ==
LOC: 2 NORTH 13:38
PROVIDERS: Nurse Practitioner; Radiology Vascular & Interventional Radiology; ADMITTING PHYSICIAN Internal Medicine; ATTENDING PHYSICIAN Hospitalist; CONSULT PHYSICIAN Specialist; CONSULT PHYSICIAN Surgery; EMERGENCY PHYSICIAN Emergency Medicine; FAMILY PHYSICIAN Family Medicine; OTHER PHYSICIAN Internal Medicine Infectious Disease
PROC: 0R9G3ZZ Drainage of Right Acromioclavicular Joint, Percutaneous Approach (ICD-10-PCS; 2023-06-27)
PROC: 0PB90ZZ Excision of Right Clavicle, Open Approach (ICD-10-PCS; 2023-06-30)
DX: A41.9 Sepsis, unspecified organism (principal); E87.1 Hypo-osmolality and hyponatremia; M00.9 Pyogenic arthritis, unspecified; F11.23 Opioid dependence with withdrawal; F17.200 Nicotine dependence, unspecified, uncomplicated; J44.89 Other specified chronic obstructive pulmonary disease; D50.9 Iron deficiency anemia, unspecified; B95.61 Methicillin susceptible Staphylococcus aureus infection as the cause of diseases classified elsewhere; F19.10 Other psychoactive substance abuse, uncomplicated
CPT/HCPCS: 20610; 73030; 73080; 73221; 77002; 80053; 82607; 82728; 82746; 83540; 83550; 85025; 85045; 85652; 86140; 86850; 86900; 86901; 86920; 87015; 87040; 87070; 87075; 87147; 87149; 87176; 87186; 87205; 93005; 99284; J2916

== ENCOUNTER 2023-10-11 20:16 | Emergency (ER) | payer OTHER, SELFPAY ==
[2023-10-11 20:21] VITALS: BP 133/85
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
[2023-10-11] MEDS: CLEOCIN 300 MG PO (23:36)
== END 2023-10-12 | disposition home or self-care (01) ==
LOC: EMR 20:16
PROVIDERS: EMERGENCY PHYSICIAN Emergency Medicine; FAMILY PHYSICIAN Family Medicine
DX: L02.612 Cutaneous abscess of left foot (principal); J45.909 Unspecified asthma, uncomplicated; G43.909 Migraine, unspecified, not intractable, without status migrainosus; F32.A Depression, unspecified; F11.21 Opioid dependence, in remission; F17.200 Nicotine dependence, unspecified, uncomplicated; Z86.19 Personal history of other infectious and parasitic diseases; Z87.11 Personal history of peptic ulcer disease; Z91.51 Personal history of suicidal behavior; Z88.5 Allergy status to narcotic agent; Z88.0 Allergy status to penicillin; Z88.8 Allergy status to other drugs, medicaments and biological substances; Z91.030 Bee allergy status
CPT/HCPCS: 99283; 10060; 73630; 87070; 87147; 87186; 87205

== ENCOUNTER 2024-02-12 12:12 | Emergency (ER) | payer OTHER, SELFPAY ==
[2024-02-12 12:22] VITALS: BP 90/73
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
[2024-02-12] MEDS: CLEOCIN 300 MG PO (15:41)
[2024-02-12 15:43] VITALS: BP 100/55
== END 2024-02-12 15:50 | disposition home or self-care (01) ==
LOC: EMR 12:12
PROVIDERS: EMERGENCY PHYSICIAN Student in an Organized Health Care Education/Training Program; FAMILY PHYSICIAN Family Medicine
DX: L03.116 Cellulitis of left lower limb (principal); L02.416 Cutaneous abscess of left lower limb; R11.0 Nausea; R60.0 Localized edema; M86.60 Other chronic osteomyelitis, unspecified site; D58.9 Hereditary hemolytic anemia, unspecified; J45.909 Unspecified asthma, uncomplicated; G43.909 Migraine, unspecified, not intractable, without status migrainosus; I42.9 Cardiomyopathy, unspecified; F11.11 Opioid abuse, in remission; F17.200 Nicotine dependence, unspecified, uncomplicated; Z91.51 Personal history of suicidal behavior; Z87.11 Personal history of peptic ulcer disease; Z86.14 Personal history of Methicillin resistant Staphylococcus aureus infection; Z88.5 Allergy status to narcotic agent; Z88.0 Allergy status to penicillin; Z88.8 Allergy status to other drugs, medicaments and biological substances; Z91.030 Bee allergy status
CPT/HCPCS: 99283

== ENCOUNTER 2024-08-06 11:56 | Inpatient (IN) | payer OTHER, SELFPAY ==
[2024-08-06] VITALS (78 sets, daily range): BP systolic 79–161; BP diastolic 46–120; BMI 26.1; BMI 25.8
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
[2024-08-06] MEDS: NSS 1000 IV (02:19)
[2024-08-06] MEDS: AZACTAM 2000 MG IV (02:19)
[2024-08-06] MEDS: TORADOL 30 MG IV (02:20)
[2024-08-06 02:34] LABS: Lactic Acid 2.2 mmol/L (0.7-2.0)
[2024-08-06 02:35] LABS: ALT (SGPT) 18 U/L (0-35); AST (SGOT) 25 U/L (14-36); Albumin 3.5 g/dl (3.5-5.0); Alkaline Phosphatase 267 U/L (38-126); Blood Urea Nitrogen 14 mg/dl (7-17); Calcium 8.9 mg/dl (8.4-10.2); Carbon Dioxide 20 mmol/L (22-30); Chloride 105 mmol/L (98-107); Estimated Creatinine Clearance 62 ml/min; Glucose 129 mg/dl (70-99); Potassium 4.6 mmol/L (3.5-5.1); Sodium 133 mmol/L (135-145); Total Bilirubin 0.6 mg/dl (0.2-1.3); Total Protein 7.2 g/dl (6.3-8.2); eGFR > 60.00
[2024-08-06 02:37] LABS: % Basophils 0.1 % (0-2); % Immature Granulocytes 0.6 % (0-0.5); % Monocytes 7.9 % (1.7-9.3); % Neutrophils 80.4 % (42.2-75.2); Absolute Immature Granulocytes 0.1 10^3/uL (0-0.05); Absolute Lymphocytes 1.2 10^3/uL (1.2-3.4); Absolute Monocytes 0.9 10^3/uL (0.1-0.6); Absolute Neutrophils 8.7 10^3/uL (1.4-6.5); Hematocrit 19.4 % (37.0-47.0); Hemoglobin 5.5 g/dL (12.0-16.0); Mean Corp Hgb Conc. 28.4 g/dL (33.0-37.0); Mean Corpuscular Hgb 16.3 pg (27.0-31.0); Mean Corpuscular Volume 57.6 fL (81.0-99.0); Nucleated Red Blood Cells % 0 %; Red Blood Cell Count 3.37 10^6/uL (4.20-5.40); Red Cell Dist. Width 18.2 % (11.5-14.5); White Blood Cell Count 10.9 10^3/uL (4.8-10.8)
[2024-08-06] MEDS: DILAUDID 1 MG IV ×5 (02:46→12:54)
[2024-08-06 02:58] LABS: Erythrocyte Sed Rate 103 mm/hour (0-20)
--- NOTE | 2024-08-06 03:02 | VATNOTE ---
0200-CALLED TO ESTASBLISH IV ACCESS AND OBTAIN ORDERED LABS. PCN UNSUCCESSFUL AT INSERTION OF USG IV IN RUE. PT WITH RECENT ABOVE THE ELBOW AMPUTATION OF LUE WHICH IS CURRENTLY BLEEDING. PT HAS EXTENSIVE HX OF IVDA AND WITH MULTIPLE SCARS FROM
EXTENSIVE SURGICAL INTERVENTIONS ON RUE. PT REFUSES TO LAY OFF OF HER R SIDE FOR FULL ASSESSMENT OF RUE. IV ESTABLISHED DOCUMENTED AND LABS DRAWN ORDERED. PT WILL REQUIRE ADDITIONAL RELIABLE IV ACCESS, POTENTIALY A CVAD FOR ADDITIONAL LAB
DRAWS, CT SCAN WITH CONTRAST AND PROBABLE BLOOD TRANSFUSION. PLATLETS ARE 9. PCN TO RELAY INFO TO PROVIDER.
[2024-08-06] MEDS: VERSED 1 MG IV ×2 (03:04→04:55)
[2024-08-06 03:22] LABS: Platelet Count 9 10^3/uL (130-400)
[2024-08-06] MEDS: TYLENOL 1000 MG PO (04:39)
--- NOTE | 2024-08-06 05:15 | VATNOTE ---
MULTIPLE ATTEMPTS IN RUE TO INSERT ML AFTER PROVIDER UNABLE TO INSERT AN USG IV OR FEMORAL TLC. UNSUCCESSFUL IN EVEN CANNULATING A VESSEL. PT SCREAMING IN PAIN DUE TO BACK PAIN AND UNABLE /UNWILLING TO OPTIMALY POSITION PT FOR BEST OUTCOME. AWAITING
CVOR PA TO ATTEMPT A FEMORAL LINE AGAIN. PERIPHERALLY OBTAINED ORDERED TYPE AND SCREEN.
--- NOTE | 2024-08-06 07:05 | EDRN ---
This RN received report from Kena BROWN @ this time. RN assumed care for this patient at this time, pt on monitor. 1st unit of blood already transfusing.
--- NOTE | 2024-08-06 07:20 | W.PN.UPDATE ---
Update Note
Progress Note Update
Procedure note:
Procedure: Left femoral triple lumen placement
Consent: Administrative
Indication: Urgent need of blood transfusion, fluid resuscitation, phlebotomy
Method: Left femoral groin was prepped and draped under sterile fashion. Left femoral vein was identified and punctured with a 20G needle after application of 2% lidocaine to anesthetize the area. A guide wire was advanced through needle without
resistance using Seldinger's technique. Dilator was used prior to advancement of femoral triple lumen catheter placement. Catheter was sutured in place using 2-0 silk, after application of biopatch. Tegaderm dressing was subsequently used. There
were no significant blood loss, pt tolerated procedure well.
--- NOTE | 2024-08-06 09:42 | EDRN ---
Hospitalist @ bedside now.
--- NOTE | 2024-08-06 11:02 | EDRN ---
Dr reyna made aware that patient was unable to tolerate CT. Pt. was given pain medication then taken directly over to CT scan. Pt. screaming and unable to lay on her back. Pt. brought back to ER room where she then proceeded to vomit all over the
floor. Pt. cleaned up and repositioned in the bed. Pt. now again lying on her R side. Pt. still on monitor. Dr. Reyna stated via tt pt. may require anesthesia for testing, no further instructions given. Dr. Reyna asked to to place admission orders
as its now been multiple hours since admission. No new orders given at this time.
--- NOTE | 2024-08-06 11:14 | HPS.HSE ---
Family Physician
-
Family Physician: NOT KNOW UNKNOWN - PT DOES
Chief Complaint
-
Acute onset of back pain
History of Present Illness
Patient seen in ER, uncomfortable because of her back pain.
She is lying to the right lateral position. Multiple attempts have been made for her to lie on her back and in fact to get a CT of the chest abdomen pelvis but she is not able to lie flat.
Patient says she had acute onset of back pain since 2 days. She denies any fall or trauma. She says it is in the back of her thorax. Some nausea. No abdominal pain or vomiting. No diarrhea. Denies any symptoms of frequency or dysuria.
Despite 4 mg of Dilaudid her pain is relentless. She does have history of drug abuse and during my conversation with her ongoing use cannot be completely excluded. He thinks Ativan might help her then Dilaudid.
Prior to the 2 days he thinks she was doing okay. He works most of the day so he does not know the whole symptomatology.
History is from the patient but as well as from the as the patient is not comfortable with the back pain and are not able to engage in a conversation.
She does not think she has fever or chills at home.
She has a history of osteomyelitis which is involve the neck, back and also her left upper extremity. She had prior vertebral instrumentation apparently. She was here in summer last year because of right clavicular osteomyelitis which needed
debridement. She also visited the ER in January last year for left upper extremity wound but did not stay.
The left upper extremity wound apparently has been there for many months. is not sure if it is because of her drug use.
According to she had Hemoccult testing done at home which was positive and was referred to GI team for colonoscopy but the colonoscopy was kept on hold because of anemia which needed correction per . No prior history of
thrombocytopenia like what she has today.
t uncro
Medical History
Past Medical History
Past Medical History: Reports Other
Additional Past Medical History:
IV drug abuse
HCV
COPD
Endometriosis
Chronic anemia
Peptic ulcer disease
Migraine headaches
Cervical spine osteomyelitis -2021
Lumbar spine osteomyelitis
Left upper extremity wound with osteomyelitis requiring amputation of the arm -2021
Septic emboli to the lungs and brain with subarachnoid hemorrhage -2018
Past Surgical History: Reports Appendectomy, Gynocological and Tonsilectomy
Social History
Tobacco: Smoker
Alcohol: Occasional
Drug: IVDA
Family History
Family History: Not pertinent
Allergies / Home Medications
Allergies reflects when Allergies were last updated in [facility].
Home Medications with original date entered in [facility]
Allergy/Medication List:
Allergies
Allergy/AdvReac Type Severity Reaction Status Date / Time
bee venom protein (honey bee) Allergy Anaphylaxis Verified 02/09/23 09:27
codeine Allergy Hives Verified 02/09/23 09:27
penicillin G Allergy Anaphylaxis Verified 02/09/23 09:27
/childhood
prochlorperazine edisylate Allergy Itching Verified 02/09/23 09:27
[From Compazine]
prochlorperazine maleate Allergy Itching Verified 02/09/23 09:27
[From Compazine]
sumatriptan [From Imitrex] Allergy LOW BP Verified 02/09/23 09:27
sumatriptan succinate Allergy LOW BP Verified 02/09/23 09:27
[From Imitrex]
Home Medications
albuterol sulfate 90 mcg/actuation aerosol inhaler (Proventil HFA) 2 puff inhalation Q4HPRN PRN asthma 01/24/09
sucralfate 100 mg/mL oral suspension (Carafate) 10 ml PO ACHS Gastrointestinal Issue 02/07/23
acetaminophen 325 mg tablet (Tylenol) 650 mg PO Q4H PRN mild pain 06/27/23
albuterol sulfate 2.5 mg/0.5 mL solution for nebulization 2.5 mg inhalation Q4HPRN PRN shortness breath 06/27/23
ibuprofen 200 mg tablet 600 mg PO Q6H PRN mild pain 06/27/23
ondansetron 4 mg disintegrating tablet 4 mg PO Q6HPRN PRN nausea/vomiting 06/27/23
tetrahydrozoline 0.05 %-zinc 0.25 % eye drops (Visine-AC) 1 drp ophthalmic (eye) TIDPRN PRN allergies 06/27/23
Review of Systems
-
Constitutional: Reports Fever; Denies Chills
EENT: Denies Sore Throat
Respiratory: Denies Trouble Breathing
Cardiac: Denies Chest Pain
Abdomen/GI: Reports Abdominal Pain (to the right side ) and Nausea; Denies Vomiting
: Denies Dysuria or Frequency
Musculoskeletal: Reports Joint Pain (back ;denies joint pain elsewhere)
Neurological: Denies Dizzy
Physical Exam
Vital Signs
Vital Signs
Temp Pulse Resp BP Pulse Ox
98.5 F 96 16 120/65 96
08/06/24 09:03 08/06/24 11:00 08/06/24 11:00 08/06/24 11:00 08/06/24 10:00
Physical Exam
General: No Comfortable (due to pain)
HEENT: Moist mucous membranes
Respiratory: Crackles (right lower zone but no wheeze) and Non Labored Respirations; No Accessory Resp Muscle Use
Cardiac: S1/S2 and Regular Rhythm
GI: Soft, Non Distended, Normal Bowel Sounds and Tender (discomfort in general but no rebound of guarding)
Musculoskeletal: Other (LUE amputated . Left arm lateral chronic wound but it is dressed. Tenderness over the lower thoracic vertebral area.)
Neuro: AO x 3 and No Motor Deficits
Psych: Calm (but uncomfortable)
Laboratory Results
-
08/06/24 02:14
08/06/24 02:14
Laboratory Results
Lactic Acid 1.0 mmol/L (0.7-2.0) 08/06/24 08:15
Total Bilirubin 0.6 mg/dl (0.2-1.3) 08/06/24 02:14
AST 25 U/L (14-36) 08/06/24 02:14
ALT 18 U/L (0-35) 08/06/24 02:14
Alkaline Phosphatase 267 U/L (38-126) H 08/06/24 02:14
Data Reviewed
-
Lab Data: Labs Reviewed by me
Impression/Plan
-
Acute back pain-seems nontraumatic-seems to be localized to lower thoracic area. Patient uncomfortable to lie on her back to get any kind of testing for now. She has associated fever. She has a history of MSSA bacteremia last year and history of
prior osteomyelitis involving multiple sites. There is also concern of ongoing drug use.
Significant elevation of inflammatory markers noted.
Obtain blood cultures.
Went back pain is tolerable obtain MRI of the thoracolumbar region.
Consult ID for choice of antibiotics.
Start on pain control regimen with Tylenol, oxycodone and IV Dilaudid.
Febrile illness with acute back pain-evaluation as above
Patient's also seems of some abdominal complaints and discomfort-when patient comfortable from pain standpoint obtain a CT of her abdomen pelvis and also chest.
Blood cultures are drawn.
Chronic left upper extremity wound
Obtain an x-ray of the left upper extremity
Consult wound care
Severe microcytic anemia with hemoglobin 5.5
Currently no obvious external bleeding but history of heme positive stools await colonoscopy.
Transfused 2 units of PRBC. Check iron studies. Check Hemoccult stools
Severe thrombocytopenia with platelets of 9K
Unclear etiology but there is a history of hemolytic anemia.
Transfuse 1 unit of platelets
Check hemolysis panel
Consult hematology
History of IV drug abuse
This seems to be a concern of ongoing use
Check urine drug screen
Watch for any withdrawals
DVT prophylaxis with sequential teds once the platelets are up
Full code
--- NOTE | 2024-08-06 11:38 | CM ---
CM reviewed chart and met with pt and her bedside in ED
Resides with , multistory home, 2 [address]
Independent with ambulation and ADLs, does have walker in home but does not use it.
No history of VN or SNF
PCP: Dr Crowder
Pharmacy: [facility] in [place]
Discharge plan: Home pending ongoing medical evaluation
--- NOTE | 2024-08-06 12:11 | CON.INTV ---
Consultation
Consultation Request
Date/Time Consultation Requested: 08/06/2024
Date/Time Consultation Performed: 08/06/2024
Requesting Provider: Dr. Harris
Performing Provider: Dr. Jeffery
Reason for Consultation: Back pain/opiate withdrawal syndrome
Medical History
-
Chief Complaint: Back pain
History of Present Illness:
54-year-old female with a past medical history of IV drug use, history of staphylococcal arthritis of right shoulder s/p open irrigation and debridement with resection of distal clavicle (06/30/2023), history of hematologists osteomyelitis of left
humerus, s/p left sided above the elbow amputation (performed at [facility]), history of MRSA + MSSA bacteremia, reported history of COPD, hepatitis C virus, PUD, history of cervical/lumbar spine osteomyelitis, endometriosis, migraine
headaches, history of asthma, depression with history of suicide attempt and reported history of MS who presents with severe lower back pain for 2 days. Patient says that pain started suddenly after she was in her home going downstairs to get a
drink. Denies any prior trauma. She does continue to inject cocaine and fentanyl -patient says she uses 14 bags a day. The is not privy to the patient's drug use. Before these past 2 days, the patient was doing okay with no back pain.
She does have a chronic left upper extremity wound which has been there for years. In the ER she was febrile to 100.5 �F, tachycardic to 105, respiratory rate 18, BP 145/94 and saturating 96% on room air. Initial labs significant for Hb 5.5, WBC
10.9, platelet count 9 (previously 186 on 06/30/2023), ESR elevated at 103, sodium 133, lactate 2.2, and CRP 160. Blood cultures were collected. Imaging was ordered however patient was unable to lay flat despite being given pain medications, hence
imaging unable to be obtained. In the ER she received Tylenol, aztreonam, hydromorphone, Toradol, Versed and 1 L NS 0.9%. Patient had inadequate IV access and difficult stick, hence a left femoral central line was placed. Given her significant
thrombocytopenia with concern for developing opiate withdrawal and her intractable back pain, patient was admitted to the ICU and Wood Turning Lathe Operator services consulted for additional management/recommendations.
When I saw the patient, she was endorsing significant back pain. Spoke with the patient's , Suraj, and he lives with the patient but is not privy to her drug use habits. When I asked the pt how much she uses, she confirms she uses 14 bags a
day. She shot up cocaine and fentanyl earlier this AM. She currently denies MCDANIEL, chest pain, SOB, fevers or chills. She is also nauseous and was vomiting after arriving here to the ICU; emesis was nonbloody
PMHx: History of staphylococcal (MSSA) arthritis of right shoulder s/p right shoulder open irrigation and debridement with resection of distal clavicle (06/30/2023), history of hematogenous osteomyelitis of left humerus, chronic left upper extremity
wound with suspected left humerus osteomyelitis, history of MRSA + MSSA bacteremia (MRSA in June 2021; MSSA in June 2023), reported history of COPD, hepatitis C, PUD, history of cervical/lumbar spine osteomyelitis, Parkinson's esophagus, endometriosis,
history of dilated cardiomyopathy reportedly from cocaine, migraine headaches, history of asthma, depression with history of suicide attempt, reported history of MS
PSHx: Hysterectomy, , tonsillectomy, laparoscopy x 6, left upper extremity OM s/p [id number] amputation (performed at [facility])
Past Medical History
Past Medical History: Other (Above as per HPI)
Past Surgical History: Other (Above as per HPI)
Social History
Tobacco: Non-smoker
Alcohol: None
Drug: Narcotics and IVDA
Personal:
Living: With Family (Suraj)
Family History
Family History: Cancer (Father: Colon cancer; Paternal grandmother: liver cancer)
Allergies / Home Medications
Allergies
Allergy/AdvReac Type Severity Reaction Status Date / Time
bee venom protein (honey bee) Allergy Anaphylaxis Verified 08/06/24 01:38
codeine Allergy Hives Verified 08/06/24 01:38
penicillin G Allergy Anaphylaxis Verified 08/06/24 01:38
/childhood
prochlorperazine edisylate Allergy Itching Verified 08/06/24 01:38
(From Compazine)
prochlorperazine maleate Allergy Itching Verified 08/06/24 01:38
(From Compazine)
sumatriptan (From Imitrex) Allergy LOW BP Verified 08/06/24 01:38
sumatriptan succinate (From Allergy LOW BP Verified 08/06/24 01:38
Imitrex)
trimethobenzamide (From Allergy Unknown Verified 08/06/24 01:38
Tigan)
Home Medications
�Medication �Instructions �Recorded �Confirmed �Last Taken �Type
No Meds [No Current Medications] 08/06/24 08/06/24 Unknown History
Review of Systems
-
Unable to Obtain full review of systems at this time due to: Acuity
Vitals / Labs / Diagnostic Testing
Vital Signs
Temp Pulse Resp BP Pulse Ox
98.4 F 82 13 143/66 98
08/06/24 12:02 08/06/24 11:30 08/06/24 11:30 08/06/24 11:30 08/06/24 12:02
Lab Data
08/06/24 02:14
Diagnostic Testing:
Physical Exam
-
HEENT: Normocephalic and Anicteric
Cardiovascular: S1/S2 and Peripheral Edema (negative)
Respiratory: Wheeze (negative), Rales (negative), Rhonchi (negative) and Non-Labored Respirations
GI: Soft, Non Distended and Non Tender
Neurology: Awake, Alert and Tremors (negative)
Skin: Warm, Dry and Other (Back is tender to palpation in the mid thoracic to lumbar region with no erythema seen along the vertebrae and no ulcerations seen)
General: Respiratory Distress (negative), Pain (back pain), Chills (negative) and Sweats (negative)
Assessment
-
Assessment: 54-year-old female with a past medical history of IV drug use, history of staphylococcal arthritis of right shoulder s/p open irrigation and debridement with resection of distal clavicle (06/30/2023), history of hematologists
osteomyelitis of left humerus, s/p left sided above the elbow amputation (performed at [facility]), history of MRSA + MSSA bacteremia, reported history of COPD, hepatitis C virus, PUD, history of cervical/lumbar spine osteomyelitis,
endometriosis, migraine headaches, history of asthma, depression with history of suicide attempt and reported history of MS who presents with severe lower back pain for 2 days. Patient says that pain started suddenly after she was in her home going
downstairs to get a drink. Denies any prior trauma. She does continue to inject cocaine and fentanyl -patient says she uses 14 bags a day. The is not privy to the patient's drug use. Before these past 2 days, the patient was doing okay
with no back pain. She does have a chronic left upper extremity wound which has been there for years. In the ER she was febrile to 100.5 �F, tachycardic to 105, respiratory rate 18, BP 145/94 and saturating 96% on room air. Initial labs
significant for Hb 5.5, WBC 10.9, platelet count 9 (previously 186 on 06/30/2023), ESR elevated at 103, sodium 133, lactate 2.2, and CRP 160. Blood cultures were collected. Imaging was ordered however patient was unable to lay flat despite being
given pain medications, hence imaging unable to be obtained. In the ER she received Tylenol, aztreonam, hydromorphone, Toradol, Versed and 1 L NS 0.9%. Patient had inadequate IV access and difficult stick, hence a left femoral central line was
placed. Given her significant thrombocytopenia with concern for developing opiate withdrawal and her intractable back pain, patient was admitted to the ICU and Wood Turning Lathe Operator services consulted for additional management/recommendations.
Chronic conditions BUSINESS STRATEGY MANAGER: History of staphylococcal (MSSA) arthritis of right shoulder s/p right shoulder open irrigation and debridement with resection of distal clavicle (06/30/2023), history of hematogenous osteomyelitis of left humerus, chronic left
upper extremity wound with suspected left humerus osteomyelitis, history of MRSA + MSSA bacteremia (MRSA in June 2021; MSSA in June 2023), reported history of COPD, hepatitis C, PUD, history of cervical/lumbar spine osteomyelitis, Parkinson's esophagus,
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
Impression:
#Intractable lower back pain
#Polysubstance abuse/IV drug abuse now with suspected withdrawal syndrome
#Acute anemia
#Severe thrombocytopenia with suspected ITP versus sequelae of sepsis
#Elevated inflammatory markers (CRP: 160, ESR: 103)
#Nausea/vomiting with nonbloody emesis
#History of MRSA + MSSA bacteremia (MRSA in June 2021; MSSA in June 2023)
#History of COPD/asthma
#Reported history of HCV
#PUD
#History of dilated cardiomyopathy reportedly from cocaine use
#History of depression with prior suicide attempt
#Reported history of MS
Plan:
- Patient presented with severe lower back pain and unfortunately has been unable to lay flat to undergo imaging
- Has inadequate IV access hence a left-sided femoral CVC was placed in the ER
- Continue with this femoral line for now and we will remove it once we are able to establish adequate peripheral IV access; will likely need to utilize IV team with a midline versus PICC
- Need to get pain under control so that we can obtain imaging; given her intractable back pain, unable to get MRI at this time which would be ideal to evaluate for osteomyelitis versus discitis; will aim to get CT C/T/L-spine for now to evaluate
for fracture and external abscess
- If patient remains unstable to go down for CT today, then try to obtain bedside portable XR
- Given her acute anemia with elevated inflammatory markers, will check CT chest, abdomen, pelvis to evaluate for intrathoracic/intra-abdominal pathology that could be explaining her pain and also to evaluate for internal bleeding
- Given her IV drug use now in withdrawal from fentanyl with xylazine/medetomidine, start Precedex drip and ketamine drip
- Continue with prn Dilaudid vs fentanyl; may need to intubate and start fentanyl drip if pain continues to be intractable despite use of prn IV medications
- Would also start supportive medications with clonidine, Tylenol, Zofran, tizanidine and ativan; avoid PO meds for now given her nausea
- Trend QTc if she continues to receive Zofran vs Reglan (current QTc 457ms on 08/06/2024)
- Continue to transfuse to keep Hb >7-8 g/dL, and aim to keep plt>50k if possible given her acute anemia
- Hematology consulted and given that her platelet count has remained 9 despite her receiving a unit of platelets, ITP is high on differential
- Discussion held with hematology and given the concern for ITP, will start high-dose Decadron at 40 mg daily for 4 days
- May need to consider IVIG if platelet count continues to remain low despite steroids
- Maintain euglycemia while on high-dose steroidS with goal BG 140-180
- Patient currently has no signs of active bleeding, and her BUN is normal at 14 hence do not believe she needs a GI consult or Protonix at this juncture
- Patient's LDH is elevated hence there is concern for intravascular hemolysis; check haptoglobin
- Patient's coags were checked and PT + PTT were mildly elevated with fibrinogen WNL, hence ruling out DIC as a cause of her thrombocytopenia
- Maintain SpO2 >90-94%
- Currently on room air and saturating 97%
- Given her pain with nausea, maintain aspiration precautions keeping HOB >30-45�
- prn nebulized bronchodilators - not currently bronchospastic
- Blood cultures were checked and are pending
- ID consulted
- Imaging of her chest/abdomen/pelvis and spine are all pending
- Low threshold to start antibiotic
- For now, trend WBC and monitor temperature curve
- Maintain MAP>65
- Replete electrolytes with K>4, Mg>2
- Once pain improves and she is more comfortable, then would encourage incentive spirometer use 10x per hour for at least 4 hrs a day
- DVT ppx: SCDs for now
Continue with ICU level of care for this critically ill patient with severe thrombocytopenia who is at risk for spontaneous intracerebral hemorrhage.
Critical care statement: A total of 38 minutes of critical care time was provided for this patient today. This includes management of unstable vital signs, evaluation of the patient at bedside, reviewing the patient's pertinent medical records
including radiographs, microbiology, laboratory evaluations, and discussion with primary team, consultants, pharmacy, nutrition, physical therapy, case management, charge nurse, critical care nursing, and respiratory therapy.
--- NOTE | 2024-08-06 12:24 | PTCARENOTE ---
Addendum entered by Ilya Sullivan RN 08/06/24 13:06:
Aviation Technician notified of IVDA 14 bags daily. COWs protocol ordered.
Hem/ONC rounded. suspected ITP --> orders to start steroids, monitor plt count.
Pt. still unable to tolerate laying flat despite multiple prns + dex gtt.
Original Note:
pt. arrived from ED. ED staff unable to get CT scans after multiple attempts.
Repeat H/H.
Pt. admits to using roughly 14 bags of fentanyl w. cocaine lace daily. Last used this morning prior to arrival.
Start opioid protocol, start DEX, attempt to get scans when pt. is more settled.
[2024-08-06 12:30] LABS: % Basophils 0.2 % (0-2); % Immature Granulocytes 1.4 % (0-0.5); % Lymphocytes 8.5 % (20.5-51.1); % Monocytes 8.3 % (1.7-9.3); % Neutrophils 81.6 % (42.2-75.2); Absolute Immature Granulocytes 0.2 10^3/uL (0-0.05); Absolute Lymphocytes 0.9 10^3/uL (1.2-3.4); Absolute Monocytes 0.9 10^3/uL (0.1-0.6); Absolute Neutrophils 8.8 10^3/uL (1.4-6.5); Hematocrit 23.4 % (37.0-47.0); Hemoglobin 7.4 g/dL (12.0-16.0); Mean Corp Hgb Conc. 31.6 g/dL (33.0-37.0); Mean Corpuscular Hgb 21.1 pg (27.0-31.0); Mean Corpuscular Volume 66.9 fL (81.0-99.0); Nucleated Red Blood Cells % 0 %; Platelet Count 9 10^3/uL (130-400); Red Cell Dist. Width 25.2 % (11.5-14.5); White Blood Cell Count 10.8 10^3/uL (4.8-10.8)
--- NOTE | 2024-08-06 12:30 | PTCARENOTE ---
Addendum entered by Ilya Sullivan RN 08/06/24 13:12:
Due to ITP workup. give steriods first wait 1 hour then request plts. per turbo generator oiler.
Pain ongoing issue, Brim Cutter to order 2mg Dilaudid.
Original Note:
Rpt. labs back hgb 7.4, PLT 9 turbo generator oiler to order 2 U platelets, run coag studies + fibro.
[2024-08-06] MEDS: SUBLIMAZE 100 MCG IV ×5 (12:35→23:39)
[2024-08-06] MEDS: PRECEDEX 100 IV ×3 (12:36→22:56)
[2024-08-06 12:40] LABS: Magnesium 2.1 mg/dl (1.6-2.3); Phosphorus 2.9 mg/dl (2.5-4.5)
[2024-08-06 12:55] LABS: INR 1.13
[2024-08-06 12:57] LABS: APTT 41.5 Sec (23.4-35.0); Fibrinogen 361 MG/DL (199-459)
--- NOTE | 2024-08-06 13:08 | WOUNDNOTE ---
LEFT UPPER ARM
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
[2024-08-06] MEDS: DILAUDID 2 MG IV (13:20)
[2024-08-06] MEDS: DECADRON 60 MG IV (13:26)
--- NOTE | 2024-08-06 13:38 | PTCARENOTE ---
Pt. screaming thrashing in bed, Volunteer Services Coordinator notified orders to start ketamine.
--- NOTE | 2024-08-06 13:48 | CON.ONC ---
Impression
Impression
54-year-old F with history of IV drug use disorder and multiple episodes of osteomyelitis in the past couple years, who presented to the ED complaining of lower back pain and was found to have low-grade fever, elevated inflammatory markers, anemia,
severe thrombocytopenia. LFTs normal. Liver functions normal. Coagulation panel is normal. We have been consulted for evaluation of thrombocytopenia.
# Severe thrombocytopenia
Differential diagnosis includes: DIC, TTP, ITP
Blood smear was seen in Path lab-no evidence of any schistocytes/hemolysis
Coagulation panel checked and was normal, Fibrinogen normal
LDH pending-will check haptoglobin, antiplatelet antibody, direct Guillermo, and SPEP
Platelet count remains at 9 after receiving 1 unit of platelets-continue to transfuse platelets as needed
Given above findings, the etiology of thrombocytopenia is more consistent with ITP in the setting of sepsis-Recommend dexamethasone 40mg daily x4 days
Monitor CBC q12h
Will continue to follow
# Acute on chronic anemia
Severe microcytic anemia with hemoglobin 5.5- 2 units of PRBC transfused
Baseline around 7
Currently no source of overt bleeding
Iron studies pending
Could potentially consider Endo/colonoscopy once patient is more stable
Monitor CBC q12h
# Fever with lower back pain
Given ongoing IV drug use, could be lumbar osteomyelitis
Follow blood cultures obtained in the ED
Spinal MRI once patient is stable and pain has improved
Management per primary team and ID
Continue pain control with Tylenol, oxycodone and IV Dilaudid
# Chronic left upper extremity wound
Management per primary team and ID
Full code
Plan
Plan
dexamethasone 40mg daily x4 days
Transfuse PRBC and platelets as needed
Continue to monitor CBC
Will check haptoglobin, antiplatelet antibody, direct Guillermo, and SPEP
Will continue to follow
Patient History
History of Present Illness
Patient is a 54-year-old female with a past medical history of chronic anemia, IVDU, multiple episodes of osteomyelitis of cervical spine, lumbar, and left upper extremity requiring amputation (in 2021) and septic emboli (in 2018), presenting with
lower back pain abruptly starting 2 days ago. Upon admission, she was noted to have a low-grade fever of 100.5�. Initial labs in the ER showed mild leukocytosis, hemoglobin 5.5, platelet 9, and highly elevated ESR and CRP. Attempts for imaging
including abdominopelvic CT and lumbar MRI were unsuccessful due to patient not being able to lie flat.
Denies any fall or trauma to back. She denies any chest pain, urinary or fecal incontinence. Has not noticed any overt bleeding. At the time of visit, patient is alert and oriented, and afebrile. Seems to be in distress due to back pain.
Currently not on any antibiotics.
Past-Medical/Surgical History
IV drug use disorder, HCV, Endometriosis, Chronic anemia, migraine headaches, dyspepsia
Cervical spine osteomyelitis 2021, Lumbar spine osteomyelitis, Left upper extremity wound with osteomyelitis requiring amputation of the arm 2021, Septic emboli to the lungs and brain with subarachnoid hemorrhage 2018
Appendectomy
Tonsilectomy
Patient Medication
�Medication �Instructions �Recorded �Confirmed �Last Taken �Type
No Meds [No Current Medications] 08/06/24 08/06/24 Unknown History
Active Medications
Generic Name Dose Route Start Last Admin
Trade Name Freq PRN Reason Stop Dose Admin
Acetaminophen 650 mg 08/06/24 11:57
Acetaminophen 325 Mg Tablet PO 09/03/24 11:56
Q4HPRN PRN
mild pain /fever >100.4
Docusate Sodium 100 mg 08/06/24 20:00
Docusate Sodium 100 Mg Capsule PO 09/03/24 19:59
BID JAVIER
Hydromorphone HCl 1 mg 08/06/24 11:57 08/06/24 12:54
Hydromorphone 1 Mg/Ml Carpuject IV 08/20/24 11:56 1 mg
Q4HPRN PRN Administration
Severe pain
Dexmedetomidine HCl 400 mcg in 100 mls @ 0 mls/hr 08/06/24 12:15 08/06/24 12:36
Precedex IV 100 mls
PER PROTOCOL JAVIER Administration
Protocol
Per Protocol
Dexamethasone Sodium Phosphate 60 mls @ 220 mls/hr 08/07/24 08:00
40 mg/ Sodium Chloride IV 08/09/24 08:17
DAILY JAVIER
Ketamine HCl 17 mg/ Sodium 51.7 mls @ 206.8 mls/hr 08/06/24 13:36
Chloride IV 08/06/24 13:37
NOW STA
Ketamine HCl 200 mg/ Sodium 100 mls @ 0 mls/hr 08/06/24 13:45
Chloride IV 08/07/24 13:44
PER PROTOCOL JAVIER
Protocol
Per Protocol
Ondansetron HCl 4 mg 08/06/24 11:57
Ondansetron 4 Mg/2 Ml Vial IV 09/03/24 11:56
Q6HPRN PRN
Nausea vomiting
Oxycodone HCl 5 mg 08/06/24 11:57
Oxycodone 5 Mg Regular Release Tablet PO 08/20/24 11:56
Q4HPRN PRN
Moderate pain
Polyethylene Glycol 17 grams 08/06/24 11:57
Polyethylene Glycol Powder 17 Grams Packet PO 09/03/24 11:56
DAILYPRN PRN
Constipation
Review of Systems
-
Unable to obtain full review of systems at this time due to: Acuity
History Source: Family and Physician
Physical Exam
-
General: Appears in Distress
HEENT: Moist Mucous Membranes
Cardiology: Normal Sinus Rhythm, S1 and S2
Pulmonary: Clear
GI: Soft and Normal Bowel Sounds
Musculoskeletal: Other (ulcerated wound noted near left arm amputation site)
Extremities: Pulses Present
Skin: Warm and Dry
Labs
Lab Results
WBC 10.8 10^3/uL (4.8-10.8) 08/06/24 12:12
RBC 3.50 10^6/uL (4.20-5.40) L 08/06/24 12:12
Hgb 7.4 g/dL (12.0-16.0) L D 08/06/24 12:12
Hct 23.4 % (37.0-47.0) L 08/06/24 12:12
MCV 66.9 fL (81.0-99.0) L 08/06/24 12:12
MCH 21.1 pg (27.0-31.0) L 08/06/24 12:12
MCHC 31.6 g/dL (33.0-37.0) L 08/06/24 12:12
RDW 25.2 % (11.5-14.5) H 08/06/24 12:12
Plt Count 9 10^3/uL (130-400) L* 08/06/24 12:12
MPV Not Reportable 08/06/24 12:12
Abs Immat Gran (auto) 0.2 10^3/uL (0-0.05) H 08/06/24 12:12
Absolute Neuts (auto) 8.8 10^3/uL (1.4-6.5) H 08/06/24 12:12
Absolute Lymphs (auto) 0.9 10^3/uL (1.2-3.4) L 08/06/24 12:12
Absolute Monos (auto) 0.9 10^3/uL (0.1-0.6) H 08/06/24 12:12
Absolute Eos (auto) 0.0 10^3/uL (0-0.7) 08/06/24 12:12
Absolute Basos (auto) 0.0 10^3/uL (0-0.2) 08/06/24 12:12
Immature Gran % 1.4 % (0-0.5) H 08/06/24 12:12
Neutrophils % 81.6 % (42.2-75.2) H 08/06/24 12:12
Lymphocytes % 8.5 % (20.5-51.1) L 08/06/24 12:12
Monocytes % 8.3 % (1.7-9.3) 08/06/24 12:12
Eosinophils % 0.0 % (0-6) 08/06/24 12:12
Basophils % 0.2 % (0-2) 08/06/24 12:12
Creatinine 0.8 mg/dL (0.6-1.0) 08/06/24 02:14
Vital Signs
Vital Signs
Temp Pulse Resp BP Pulse Ox
98.4 F 78 22 137/58 97
08/06/24 12:15 08/06/24 12:15 08/06/24 12:15 08/06/24 12:01 08/06/24 12:15
--- NOTE | 2024-08-06 13:51 | PTCARENOTE ---
Notified by blood bank the hospital does not have platelets. Weight Reducing Technician notified.
[2024-08-06 14:21] LABS: LDH 289 U/L (120-246)
[2024-08-06] MEDS: KETAMINE 51.7 MG IV (14:26)
--- NOTE | 2024-08-06 14:31 | PTCARENOTE ---
Ketamine bolus given will start gtt per protocol. will attempt CT scan if pt. can tolerate.
Blood bank stated more plts have arrived, wireless construction manager notified will transfuse per orders.
[2024-08-06] MEDS: KETALAR 100 MG IV (14:42)
[2024-08-06 15:29] LABS: Folate 5.7 ng/ml (2.76-20); Vitamin B12 600 pg/ml (239-931)
[2024-08-06] MEDS: VERSED 2 MG IV (15:44)
--- NOTE | 2024-08-06 15:55 | CON.ID ---
Consultation
-
Date/Time Consultation Requested: 08/06/2024 1157
Date/Time Consultation Performed: 08/06/2024 1530
Requesting Provider: Dr. Harris
Performing Provider: Dr. Myers
Reason for Consultation: Back pain; Hx osteomyelitis
Chief Complaint / Past History
History of Present Illness
Aaliyah Clark is a 54-year-old female with a significant past medical history of prior IVDA, left upper extremity chronic osteomyelitis and hepatitis C being evaluated regarding severe back pain. History is obtained from chart review, along
with patient interview. Limited history is available from the patient, but the patient's was at the bedside and additional history was obtained from him.
The patient's reports that she spends a significant amount of time in bed, only going out to the bathroom often. She was in her usual state of health until approximately 3 days ago when she was up and about and had the acute onset of low
back discomfort. She reports using Tylenol for the pain, but the pain persisted and she came to the hospital for further evaluation. There has been no fevers or chills prior to admission. He reports that her pain was 10/10. He reports no history
of trauma or falls recently. There has been no travel history.
Workup in the ER revealed a white count just above normal. Imaging has not been performed yet as the patient reports extreme pain and could not lay flat for the CAT scan. She is currently on her way to CT again in an attempt to get imaging.
Past History
Additional Past Medical History:
Hepatitis C
COPD
Endometriosis
Chronic anemia
Peptic ulcer disease
Migraines
Hx cervical spine osteomyelitis (2021)
Hx lumbar spine osteomyelitis
Left upper extremity infection with chronic osteomyelitis
Hx Subarachnoid hemorrhage
Additional Past Surgical History:
Left upper extremity amputation
Appendectomy
Tonsillectomy
Allergy History:
bee venom protein (honey bee) Allergy (Verified 08/06/24 01:38)
Anaphylaxis
codeine Allergy (Verified 08/06/24 01:38)
Hives
penicillin G Allergy (Verified 08/06/24 01:38)
Anaphylaxis/childhood
prochlorperazine edisylate (From Compazine) Allergy (Verified 08/06/24 01:38)
Itching
prochlorperazine maleate (From Compazine) Allergy (Verified 08/06/24 01:38)
Itching
sumatriptan (From Imitrex) Allergy (Verified 08/06/24 01:38)
LOW BP
sumatriptan succinate (From Imitrex) Allergy (Verified 08/06/24 01:38)
LOW BP
trimethobenzamide (From Tigan) Allergy (Verified 08/06/24 01:38)
Unknown
Medications Reviewed: Yes
Current Antibiotics:
Aztreonam x 1 in ER
Social History
Tobacco: Non-Smoker
Alcohol: None
Drug: Cocaine, Narcotics and IVDA
Personal:
Living: With Family
Employment: Not Employed
Family History
Family History: Not Pertinent
Review of Systems
Vital Signs
Temp Pulse Resp BP Pulse Ox
98.3 F 80 24 125/60 97
08/06/24 15:36 08/06/24 15:36 08/06/24 15:36 08/06/24 15:36 08/06/24 15:36
Physical Exam
Physical Exam
Constitutional: Acutely Ill, Chronically Ill and Non-toxic
Head: Normocephalic
Eyes: Pupils Equal, Pupils Round, No Conjunctival Hemorrhage and Sclera Anicteric
Oral: No Thrush
Cardiovascular: Regular Rate and S1/S2; Negative S3/S4 or Murmur
Pulmonary: Clear; Negative Wheezes, Rales or Rhonchi
Gastrointestinal: Soft, Non Distended, Normal Bowel Sounds, No Rebound and No Guarding
Genito-Urinary: Negative Guthrie
Extremities: Negative Edema, Cyanosis or Erythema
Wound: Other (Left upper extremity with chronic open wound. Dressing in place. Some slough, but no significant purulence)
Neurological: Other (Sedated at present)
Psychological: Calm
.
Lab / Diagnostic Study Results
08/06/24 12:12
08/06/24 02:14
Abs Immat Gran (auto) 0.2 10^3/uL (0-0.05) H 08/06/24 12:12
Absolute Neuts (auto) 8.8 10^3/uL (1.4-6.5) H 08/06/24 12:12
Absolute Lymphs (auto) 0.9 10^3/uL (1.2-3.4) L 08/06/24 12:12
Absolute Monos (auto) 0.9 10^3/uL (0.1-0.6) H 08/06/24 12:12
Absolute Basos (auto) 0.0 10^3/uL (0-0.2) 08/06/24 12:12
Immature Gran % 1.4 % (0-0.5) H 08/06/24 12:12
Neutrophils % 81.6 % (42.2-75.2) H 08/06/24 12:12
Lymphocytes % 8.5 % (20.5-51.1) L 08/06/24 12:12
Monocytes % 8.3 % (1.7-9.3) 08/06/24 12:12
Eosinophils % 0.0 % (0-6) 08/06/24 12:12
Basophils % 0.2 % (0-2) 08/06/24 12:12
ESR 103 mm/hour (0-20) H 08/06/24 02:14
PT 15.0 Sec (11.4-14.6) H 08/06/24 12:34
INR 1.13 08/06/24 12:34
Lactic Acid 1.0 mmol/L (0.7-2.0) 08/06/24 08:15
C-Reactive Protein 160.40 mg/L (0.0-10.00) H 08/06/24 02:14
Microbiology Results
Micro:
08/06/24 02:15 Blood Culture - Pending
Blood/Venous
08/06/24 02:14 Blood Culture - Pending
Blood/Venous
Assessment / Plan
Acute onset low back pain; ?compression fx ?malignant fx
Anemia
Thrombocytopenia
Elevated ESR and CRP
Hepatitis C
COPD
Endometriosis
Chronic anemia
Peptic ulcer disease
Migraines
Hx cervical spine osteomyelitis (2021)
Hx lumbar spine osteomyelitis
Left upper extremity infection with chronic osteomyelitis
Hx Subarachnoid hemorrhage
Recommendations:
Await pending CT imaging.
White count not significantly elevated. Patient without fever. Would hold on antibiotics for the present.
Blood culture have been obtained; will follow.
Monitor white count and temperature curve.
Further recommendations as additional data is returned.
--- NOTE | 2024-08-06 16:38 | PTCARENOTE ---
CT scan completed, pt. unable to tolerate being on back any longer for arm scan.
Dex uptitrated to max, ketamine titrated down.
Slightly hypotensive, label remover notified, orders for norepi.
[2024-08-06] MEDS: LEVOPHED 250 IV (17:24)
[2024-08-06 17:35] LABS: Hematocrit 17.7 % (37.0-47.0); Hemoglobin 5.6 g/dL (12.0-16.0); Mean Corp Hgb Conc. 31.6 g/dL (33.0-37.0); Mean Corpuscular Hgb 20.8 pg (27.0-31.0); Mean Corpuscular Volume 65.8 fL (81.0-99.0); Platelet Count 16 10^3/uL (130-400); Red Blood Cell Count 2.69 10^6/uL (4.20-5.40); Red Cell Dist. Width 24.1 % (11.5-14.5); White Blood Cell Count 9.5 10^3/uL (4.8-10.8)
--- NOTE | 2024-08-06 18:08 | PTCARENOTE ---
CBC resulted sent to Foreign Languages Department Chair --> 1 UPRBC ordered/ 1 UPLT ordered.
[2024-08-06 18:36] LABS: Cortisol, Random 33.5 ug/dl
[2024-08-06] MEDS: COLACE 100 MG PO (19:55)
--- NOTE | 2024-08-06 20:00 | PTCARENOTE ---
assumed care, dual RN med rec @ bedside, pt resting with unlabored breathing, 1 unit of blood given, Ox3, with any stimulation pt moans and yells out c/o 12/05 pain in lower back refer to MAR, sinus on the monitor, weak pulses, +1 L upper arm, lungs
clear on RA 100% tachypneic, BSx4 hypoactive denies nausea, pt due to void, wounds per worklist, L fem TL, 22G R foot, Ketamine and dex gtts per worklist, XR of LUE obtained, call santos within reach, safe environment maintained, bed alarm on,
otherwise refer to documentation
[2024-08-06 22:16] LABS: Hematocrit 20.9 % (37.0-47.0); Mean Corp Hgb Conc. 33.5 g/dL (33.0-37.0); Mean Corpuscular Hgb 23.1 pg (27.0-31.0); Platelet Count 27 10^3/uL (130-400); Red Blood Cell Count 3.03 10^6/uL (4.20-5.40); Red Cell Dist. Width 26.2 % (11.5-14.5); White Blood Cell Count 8.8 10^3/uL (4.8-10.8)
[2024-08-07] VITALS (57 sets, daily range): BP systolic 106–162; BP diastolic 36–133; PULSE 45–49; BMI 26.9
--- NOTE | 2024-08-07 00:34 | PTCARENOTE ---
systems reviewed, transfused 1 unit PRBC, CHG bath, c/o pain treated per MAR, otherwise refer to documentation
[2024-08-07] MEDS: SUBLIMAZE 100 MCG IV ×11 (00:48→22:16)
--- NOTE | 2024-08-07 01:25 | PTCARENOTE ---
Called multiple x's about stat CT order, CT said they confirmed with the ordering physician that because of the issues they had earlier with pt, CT can wait until dayshift.
--- NOTE | 2024-08-07 03:42 | PTCARENOTE ---
systems reviewed, HR < 50, WIRE GALVANIZER made aware and Dex gtt stopped, labs sent, pt resting with unlabored respirations, otherwise refer to documentation.
[2024-08-07 03:57] LABS: Hematocrit 23.1 % (37.0-47.0); Hemoglobin 7.8 g/dL (12.0-16.0); Mean Corp Hgb Conc. 33.8 g/dL (33.0-37.0); Mean Corpuscular Hgb 24.8 pg (27.0-31.0); Mean Corpuscular Volume 73.3 fL (81.0-99.0); Platelet Count 39 10^3/uL (130-400); Red Blood Cell Count 3.15 10^6/uL (4.20-5.40); White Blood Cell Count 7.9 10^3/uL (4.8-10.8)
[2024-08-07 04:10] LABS: ALT (SGPT) 14 U/L (0-35); AST (SGOT) 20 U/L (14-36); Albumin 2.7 g/dl (3.5-5.0); Alkaline Phosphatase 161 U/L (38-126); Blood Urea Nitrogen 15 mg/dl (7-17); Calcium 8.4 mg/dl (8.4-10.2); Carbon Dioxide 24 mmol/L (22-30); Chloride 109 mmol/L (98-107); Estimated Creatinine Clearance 72 ml/min; Glucose 148 mg/dl (70-99); Iron 25 ug/dl (37-170); Magnesium 2.2 mg/dl (1.6-2.3); Phosphorus 3.4 mg/dl (2.5-4.5); Sodium 136 mmol/L (135-145); Total Bilirubin 0.9 mg/dl (0.2-1.3); Total Protein 5.9 g/dl (6.3-8.2); eGFR > 60.00
[2024-08-07 04:19] LABS: Percent Saturation 7 % (20-50); Total Iron Binding Capacity 334 ug/dl (265-497)
[2024-08-07 04:46] LABS: Ferritin 34.1 ng/ml (11.1-264.0)
[2024-08-07 05:43] LABS: Amphetamines Negative (Negative); Barbiturates Negative (Negative); Benzodiazepines Negative (Negative); Buprenorphine Negative (Negative); Cocaine Positive (Negative); Marijuana Negative (Negative); Methadone Negative (Negative); Methamphetamines Negative (Negative); Opiates Positive (Negative); Phencyclidine Negative (Negative); Tricyclic Antidepressants Negative (Negative)
[2024-08-07 05:56] LABS: Fentanyl, Urine Positive (Negative)
--- NOTE | 2024-08-07 07:02 | PTCARENOTE ---
Assumed care of pt. approx 0700.
pt. screaming in pain despite multiple PRNs by night team.
Dex stopped HS due to bradycardia reported in the 40s.
Ketamine at 0.1.
Hemodynamically stable at this time.
[2024-08-07] MEDS: COLACE 100 MG PO (07:39)
--- NOTE | 2024-08-07 08:25 | W.PN.INTV ---
Today's Communication / Plan
Recommendations
Pain control is pyle
Once able, check MRI C/T/L-spine
Antibiotics per ID
Bowel regimen once able to start PO meds
Benzodiazepines should be given with pain meds as this may also help with her pain given its muscle relaxant properties; believe that anxiolytic properties will also help her feel better
Once pt can take PO meds, then would also start gabapentin to see if this helps her pain
Continue ICU level of care
Assessment
-
Assessment: 54-year-old female with a past medical history of IV drug use, history of staphylococcal arthritis of right shoulder s/p open irrigation and debridement with resection of distal clavicle (06/30/2023), history of hematologists
osteomyelitis of left humerus, s/p left sided above the elbow amputation (performed at [facility]), history of MRSA + MSSA bacteremia, reported history of COPD, hepatitis C virus, PUD, history of cervical/lumbar spine osteomyelitis,
endometriosis, migraine headaches, history of asthma, depression with history of suicide attempt and reported history of MS who presents with severe lower back pain for 2 days. Patient says that pain started suddenly after she was in her home going
downstairs to get a drink. Denies any prior trauma. She does continue to inject cocaine and fentanyl -patient says she uses 14 bags a day. The is not privy to the patient's drug use. Before these past 2 days, the patient was doing okay
with no back pain. She does have a chronic left upper extremity wound which has been there for years. In the ER she was febrile to 100.5 �F, tachycardic to 105, respiratory rate 18, BP 145/94 and saturating 96% on room air. Initial labs
significant for Hb 5.5, WBC 10.9, platelet count 9 (previously 186 on 06/30/2023), ESR elevated at 103, sodium 133, lactate 2.2, and CRP 160. Blood cultures were collected. Imaging was ordered however patient was unable to lay flat despite being
given pain medications, hence imaging unable to be obtained. In the ER she received Tylenol, aztreonam, hydromorphone, Toradol, Versed and 1 L NS 0.9%. Patient had inadequate IV access and difficult stick, hence a left femoral central line was
placed. Given her significant thrombocytopenia with concern for developing opiate withdrawal and her intractable back pain, patient was admitted to the ICU and Unix Systems Administrator services consulted for additional management/recommendations.
Chronic conditions NEW CAR INSPECTOR: History of staphylococcal (MSSA) arthritis of right shoulder s/p right shoulder open irrigation and debridement with resection of distal clavicle (06/30/2023), history of hematogenous osteomyelitis of left humerus, chronic left
upper extremity wound with suspected left humerus osteomyelitis, history of MRSA + MSSA bacteremia (MRSA in June 2021; MSSA in June 2023), reported history of COPD, hepatitis C, PUD, history of cervical/lumbar spine osteomyelitis, Parkinson's esophagus,
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
Impression:
#Intractable lower back pain with concern for lumbar vs thoracic OM vs discitis
#Polysubstance abuse/IV drug abuse now with suspected withdrawal syndrome
#Acute anemia
#Small right iliopsoas intramuscular hematoma � possibly spontaneous due to her severe pancytopenia present on admission
#Severe thrombocytopenia with suspected ITP versus sequelae of sepsis
#Elevated inflammatory markers (CRP: 160, ESR: 103)
#Nausea/vomiting with nonbloody emesis
#History of MRSA + MSSA bacteremia (MRSA in June 2021; MSSA in June 2023)
#History of COPD/asthma
#Reported history of HCV
#PUD
#History of dilated cardiomyopathy reportedly from cocaine use
#History of depression with prior suicide attempt
#Reported history of MS
Plan:
- Patient presented with severe lower back pain and unfortunately has been unable to lay flat to undergo imaging
- We did obtain imaging yesterday with CT cervical/thoracic/lumbar spine, all showing no acute fracture or external abscess, with overall mild multilevel DDD and facet disease.
- Need to obtain MRI imaging to eval for OM vs discitis, however given the patient's acute severe intractable back pain, this is currently not possible unless pain is better controlled
- May need to intubate her so that we can control pain better and then get imaging otherwise there will be a delay in obtaining an MRI spine
- For now, I will start a Dilaudid CONTRACTING SPECIALIST pump in addition to prn fentanyl vs dilaudid pushes
- Of note, she does have a left-sided femoral CVC placed in the ER. Once we are able to, this should be removed and an IJ CVC should be placed otherwise we will need to place multiple peripheral IVs for adequate access
- Given her bacteremia, would hold off on PICC line for now until surveillance blood cultures are negative for >24-48 hours
- Given her IV drug use with suspected component of withdrawal from fentanyl with xylazine/medetomidine, we started precedex and ketamine drips on 08/06.
- Unfortunately, Precedex drip stopped overnight due to bradycardia into the 40s. Unclear if ketamine drip is helping her as she is still screaming in pain and she has not shown improvement since the ketamine restarted. I will stop the ketamine
now
- Once we are able to as her nausea improves, then would start supportive medications with clonidine, Tylenol, Zofran, tizanidine and ativan; avoid PO meds for now given her nausea
- Trend QTc if she continues to receive Zofran vs Reglan (current QTc 457ms on 08/06/2024)
- Continue to transfuse to keep Hb >7-8 g/dL, and aim to keep plt>50k if possible given her acute anemia
- Hb this morning is 7.8 and platelet count 39 --> recheck CBC later today and transfuse if needed to keep Hb >7�8 and keep plt>50k (ideally), but at the very least >10-20k
- Hematology consulted and given that her platelet count initially remained 9 on 08/06 despite her receiving a unit of platelets, ITP is high on differential
- Discussion held with hematology and given the concern for ITP, on 08/06 I started high-dose Decadron at 40 mg daily; continue this for 4 days
- May need to consider IVIG if platelet count continues to remain low despite steroids
- Maintain euglycemia while on high-dose steroids with goal BG 140-180
- Patient currently has no signs of active GI bleed and her BUN is normal at 14 hence do not believe she needs a GI consult or Protonix at this juncture
- Patient's LDH is elevated hence there is concern for intravascular hemolysis; follow up haptoglobin
- Patient's coags were checked and PT + PTT were mildly elevated with fibrinogen WNL, hence ruling out DIC as a cause of her thrombocytopenia
- Maintain SpO2 >90-94%
- Currently on room air and saturating 100%, however due to her severe pain she is tachypneic and in respiratory distress
- If respiratory rate does not improve with continued attempts to improve her pain, then she will need to be intubated
- Given her pain with nausea, maintain aspiration precautions keeping HOB >30-45�
- prn nebulized bronchodilators - not currently bronchospastic
- Blood cultures were checked and growing GPC in clusters in 1 set, and growing S. aureus in 2nd set from 08/06
- Collect a set of surveillance blood cultures today
- Continue with IV vancomycin; ID consulted and recs appreciated
- As soon as possible, we will need to obtain MRI cervical/thoracic/lumbar spine to evaluate for OM +/- discitis
- Continue to tend WBC and monitor temperature curve
- Maintain MAP>65
- Replete electrolytes with K>4, Mg>2
- DVT ppx: SCDs for now
Continue with ICU level of care for this critically ill patient who is in extremis with severe, intractable back pain who will likely need to be intubated shortly given her severe pain causing respiratory distress
Critical care statement: A total of 42 minutes of critical care time was provided for this patient today. This includes management of unstable vital signs, evaluation of the patient at bedside, reviewing the patient's pertinent medical records
including radiographs, microbiology, laboratory evaluations, and discussion with primary team, consultants, pharmacy, nutrition, physical therapy, case management, charge nurse, critical care nursing, and respiratory therapy.
Subjective Dataa
Subjective Data
Date of Service:
Date of Service: August 07, 2024
Chief Complaint: Unix Systems Administrator Follow Up
Subjective:
Continues to be in intense discomfort with intractable back pain. She keeps saying that she wants to be knocked out and intubated. Blood cultures from overnight are already growing GPC in clusters + Staphylococcus aureus. Patient is unable to
have conversation as she is screaming in pain. She is also dry heaving this morning and remains nauseous.
Review of Systems
General: Other (Unobtainable due to patient's acute clinical status)
Objective Data
Data Reviewed
Vital Signs / I&O / Oxygen:
Vital Signs
Temp Pulse Resp BP Pulse Ox
97.6 F 60 21 127/83 95
08/07/24 07:39 08/07/24 08:00 08/07/24 08:00 08/07/24 07:30 08/07/24 06:07
Intake and Output
08/06/24 08/07/24 08/08/24
06:59 06:59 06:59
Intake Total 279 / 279 3580.2 / 3583.1 67.7 / 67.7
Output Total 200 / 200 0 / 0
Balance 279 / 279 3380.2 / 3383.1 67.7 / 67.7
SaO2 95
Physical Exam
General: Respiratory Distress (yes due to severe back pain) and Pain (lower back and right lower quadrant abdomen)
HEENT: Normocephalic and Anicteric
Cardiovascular: S1-S2 and Peripheral Edema (negative)
Respiratory: Clear, Wheeze (negative), Crackles (negative), Rhonchi (negative) and Accessory Resp Muscle Use (mild-moderate due to severe pain)
GI: Soft, Non Distended, Tender (RLQ) and Normal Bowel Sounds
Neurology: Awake, Alert, Tremors (negative) and Other (And extremis due to severe intractable back pain)
Skin: Warm, Dry, Cyanosis (negative) and Jaundice (negative)
Labs/Micro/Reports
Lab Data
08/07/24 03:31
08/07/24 03:31
Laboratory Results
08/06/24
12:34
PT 15.0 H
INR 1.13
APTT 41.5 H
Microbiology
08/06/24 02:14 Blood/Venous Blood Culture - Preliminary
Staphylococcus aureus
08/06/24 02:14 Blood/Venous Gram Stain - Final
08/06/24 02:15 Blood/Venous Blood Culture - Preliminary
Positive culture in progress
08/06/24 02:15 Blood/Venous Gram Stain - Final
[2024-08-07] MEDS: KETALAR 100 MG IV (08:38)
--- NOTE | 2024-08-07 08:53 | PTCARENOTE ---
PT. continues to have severe uncontrollable pain despite max ketamine and fent 100mcg PRNs.
Hospitalist and lead generation representative made aware.
[2024-08-07] MEDS: VANCOCIN 530 MG IV (08:55)
[2024-08-07] MEDS: DECADRON 60 MG IV (09:18)
[2024-08-07] MEDS: VERSED 1 MG IV ×2 (09:18→21:02)
--- NOTE | 2024-08-07 09:18 | W.PN.HOSP.TC ---
Today's Communication/Plan
-
Started on micro induction with buprenorphine
Continue with ketamine, fentanyl for pain
Started on vancomycin for bacteremia
Assessment / Plan
Assessment / Plan
Acute back pain- nontraumatic-CT of abdomen pelvis raises suspicion for small right iliopsoas intramuscular hematoma. There is surrounding inflammatory changes/edema within the right paracolic gutter and mixing into the right anterior groin
subcutaneous tissues. No loculated fluid collection. Unclear if this is a hematoma or an infection. She has significant elevated inflammatory marker and she is not bacteremic with gram-positive cocci.
With the significant and dangerously high levels of fentanyl drug abuse ,it is extremely difficult to control her pain.
Currently on ketamine max dose. Cannot use Precedex with bradycardia
On fentanyl and Versed as needed.
High risk situation for respiratory depression and need of intubation with ongoing high doses of medication to control her pain.
Ndrneamvat-[id number]-[id number] cocci in clusters noted. She had a prior history of MSSA bacteremia and osteomyelitis with seeding requiring interventions. Unfortunately she is still doing intravenous fentanyl predisposing her to recurrent bacteremia.
Started on IV vancomycin.
She has about right iliopsoas intramuscular hematoma with surrounding changes which could be the source of seeding and also she has left humerus chronic osteomyelitis which could be the source of seeding.
Infectious disease following.
Currently blood pressure stable.
IV drug abuse with fentanyl
Cocaine abuse
Significantly high amounts of drugs used this outpatient-14 bags of fentanyl every day and bundle of cocaine.
Urine drug screen positive for fentanyl and cocaine
Add micro dosing with buprenorphine.
Clinical refinery operator vapor recovery unit consult
Chronic left upper extremity wound
Humerus x-ray showing chronic osteomyelitis of the left midshaft of humerus
Consult wound care
Severe microcytic anemia with hemoglobin 5.5
Currently no obvious external bleeding but history of heme positive stools await colonoscopy.
Transfused 4 units of PRBC.
Iron deficiency on blood work noted
Check Hemoccult stools
Severe thrombocytopenia with platelets of 9K
Unclear etiology but there is a history of hemolytic anemia.
Transfuse 3 unit of platelets
Check hemolysis panel-pending
Appreciate hematology input-no schistocytes noted apparently, fibrinogen normal. Suspicion is for ITP and high-dose steroids prescribed.
Discussed with REGULATORY AFFAIRS MANAGER
Discussed with ICU pharmacy
Significant high risk situation with history of significant drug abuse, ongoing pain from medical illness, and clinical suspicion of ongoing withdrawal despite on narcotic regimen here as we cannot manage her daily drug use, and bacteremia.
DVT prophylaxis with sequential teds once the platelets are up
Full code
Disposition ICU
Total Critical Care Time__35___ minutes. I was immediately available to the patient and staff. I personally examined, reviewed labs, diagnostic images/reports, interpretations, treatment plans, discussed patient care with other providers and
family or caregivers (if patient is unable to make decisions), entered orders as appropriate and documented the medical record.
Anticipated Discharge: > 48 hours
Subjective/Interval History
-
Date of Service: August 07, 2024
Constantly complaining of pain. Constant moaning.
Her pain is right-sided abdominal posteriorly. Associated nausea. No diarrhea. No dysuria. Denies any trauma or falls.
She is needing extremely high amounts of narcotics for pain control-receiving fentanyl as needed, Versed as needed, on ketamine 0.4 mg/kg/h, and was on Precedex which was discontinued because of bradycardia.
She admits that she is using 1 bundle of fentanyl and cocaine. 1 bundle equivalent to 14 bags. She does that daily. She says she is using it for the pain in her neck and her back.
She kept asking me to knock her out and intubate her for pain control.
She had multiple rehab for drug use and the last one was 2 years ago.
Denies shortness of breath or chest pain.
She is alert and oriented to place, person, month and the year.
Objective Data
-
Labs:
Laboratory Results
08/06/24 08/07/24
22:03 03:31
WBC 8.8 7.9
Hgb 7.0 L D 7.8 L
Hct 20.9 L* 23.1 L
Plt Count 27 L* D 39 L D
Sodium 136
Potassium 4.0
Chloride 109 H
Carbon Dioxide 24
BUN 15
Creatinine 0.7
Glucose 148 H
Calcium 8.4
Total Bilirubin 0.9
AST 20
ALT 14
Alkaline Phosphatase 161 H
Vital Signs:
Vital Signs
Temp Pulse Resp BP Pulse Ox
97.6 F 60 21 127/83 95
08/07/24 07:39 08/07/24 08:00 08/07/24 08:00 08/07/24 07:30 08/07/24 06:07
I&O
08/06/24 08/07/24 08/08/24
06:59 06:59 06:59
Intake Total 279 / 279 3580.2 / 3583.1 67.7 / 67.7
Output Total 200 / 200 0 / 0
Balance 279 / 279 3380.2 / 3383.1 67.7 / 67.7
Physical Exam
-
General: Negative Comfortable
Respiratory: Clear to Auscultation and Non Labored Respirations; Negative Accessory Resp Muscle Use
Cardiac: Regular Rhythm and S1/S2; Negative Tachycardic
GI: Soft, Nondistended, Normal Bowel Sounds and Tender (veronique right lower quadrant and tender in back ;lying in left lateral position)
Musculoskeletal: No Edema
Neuro: AO x 3
Psych: Anxious; Negative Calm or Confused
Data Reviewed
-
Diagnostic Radiology: Report Reviewed by me (left humerus xray)
CT Scan: Report Reviewed by me (CT A/P/C/Tspine/Lspine)
Labs: Labs Reviewed by me
[2024-08-07] MEDS: DILAUDID 4 MG IV (10:26)
--- NOTE | 2024-08-07 10:46 | PHA.VAN.IN ---
Assessment
- Assessment
Renal Function: Appears similar to baseline
Pt may have increased vanc clearance due to IVDA
AUC Dosing Plan
- Dosing Variables
Dosing Weight (kg): 60
Dosing CrCl (ml/min): 72
Vd coefficient (L/kg): 0.7
- Empiric Dosing
Initial / Loading Dose: 1500 mg LD - given ~0900 08/07
Maintenance Regimen: 750 mg q12h start 1800 08/07
Estimated AUC (mcg*h/mL): 575
Estimated Peak (mcg*h/mL): 33.3
Estimated Trough (mcg/ml): 16.4
Estimated Half Life (H): 10.8
- Monitoring
No levels ordered at this time: consider levels when pt nears steady state
Pharmacokinetics Vancomycin I
- -
Patient Age: 54
Patient Sex: Female
Vancomycin Day #: 1
Indication: Bacteremia
Requesting Provider: Steven
Pertinent Antimicrobial Allergies:
penicillin G - anaphylaxis(childhood)
Height / Weight:
Height 4 ft 11 in
Actual Weight 60.3 kg
Pertinent Past Medical History: IV drug abuse: osteomyelitis (requiring amputation arm 2021)
- Vital Signs / Lab Results
Temp Pulse Resp BP Pulse Ox
97.6 F 65 23 127/83 95
08/07/24 07:39 08/07/24 10:30 08/07/24 10:30 08/07/24 07:30 08/07/24 06:07
Lab Results - Hematology
08/06/24 08/06/24 08/06/24
02:14 12:12 17:17
WBC 10.9 H 10.8 9.5
08/06/24 08/07/24
22:03 03:31
WBC 8.8 7.9
Lab Results - Chemistry
08/06/24 08/07/24
02:14 03:31
BUN 14 15
Creatinine 0.8 0.7
Estimated Creat Clear 62 72
Albumin 3.5 2.7 L
08/06/24 08/06/24
02:14 08:15
Lactic Acid 2.2 H 1.0
Lab Results - Urine
08/06/24 08/06/24
02: 05:29
Urine Nitrite (Reflex) Cancelled Cancelled
Leukocyte Esterase Rfl Cancelled Cancelled
Microbiology Results
08/06/24 02:14 Blood Culture - Preliminary
Blood/Venous Staphylococcus aureus
Gram Stain - Final
08/06/24 02:15 Blood Culture - Preliminary
Blood/Venous Positive culture in progress
Gram Stain - Final
--- NOTE | 2024-08-07 10:58 | W.PN.ONC ---
Today's Communication / Plan
-
Continue dexa for another 2 doses
Management of sepsis per primary team
Impression
Impression
54-year-old F with history of IV drug use disorder and multiple episodes of osteomyelitis in the past couple years, who presented to the ED complaining of lower back pain and was found to have low-grade fever, elevated inflammatory markers, anemia,
severe thrombocytopenia. LFTs normal. Coagulation panel is normal. We have been consulted for evaluation of thrombocytopenia.
# Severe thrombocytopenia
Differential diagnosis includes: DIC, TTP, ITP
Blood smear was seen in Path lab-no evidence of any schistocytes/hemolysis
Coagulation panel checked and was normal, Fibrinogen normal
LDH elevated at 289- haptoglobin, antiplatelet antibody, direct Guillermo, and SPEP pending
Platelet count up trended after receiving 4 unit of platelets-continue to transfuse platelets as needed
Given above findings, the etiology of thrombocytopenia is more consistent with ITP in the setting of sepsis-Recommend dexamethasone 40mg daily x4 days starting 08/05- Recommend starting PPI
Continue to monitor CBC
# Acute on chronic anemia
Severe microcytic anemia
Currently at 7.8 after 4 units of PRBC-Baseline around 7
Currently no source of overt bleeding
Iron studies- serum Iron and saturation low suggesting mixed EILEEN and chronic disease
Could potentially consider Endo/colonoscopy once patient is more stable
Monitor CBC q12h
# Fever with lower back pain
Given ongoing IV drug use, could be lumbar osteomyelitis
Follow blood cultures obtained in the ED
Spinal MRI did not show any focal mass/abnormalities
abdominal CT suggests small right iliopsoas intramuscular hematoma. There is surrounding inflammatory change/edema within the right paracolic gutter and extending into the anterior right groin subcutaneous tissues. No loculated fluid collections.
Management per primary team and ID
Continue pain control with Tylenol, oxycodone and IV Dilaudid
Positive blood culture with gram-positive cocci in progress-management per ID with vancomycin
# Chronic left upper extremity wound
Management per primary team and ID
Full code
Plan
Plan
Dexamethasone 40mg daily for another 2 doses
Transfuse PRBC and platelets as needed
Continue to monitor CBC
Haptoglobin, antiplatelet antibody, direct Guillermo, and SPEP pending
Positive blood culture in progress-antibiotics per ID
Recommend PPI therapy
Will continue to follow
Subjective/Objective
Subjective/Objective
Vital Signs:
Vital Signs
Temp Pulse Resp BP Pulse Ox
97.6 F 65 23 127/83 95
08/07/24 07:39 08/07/24 10:30 08/07/24 10:30 08/07/24 07:30 08/07/24 06:07
Lab Results:
Laboratory Data
WBC 7.9 10^3/uL (4.8-10.8) 08/07/24 03:31
Hgb 7.8 g/dL (12.0-16.0) L 08/07/24 03:31
Plt Count 39 10^3/uL (130-400) L D 08/07/24 03:31
PT 15.0 Sec (11.4-14.6) H 08/06/24 12:34
INR 1.13 08/06/24 12:34
APTT 41.5 Sec (23.4-35.0) H 08/06/24 12:34
eGFR > 60.00 08/07/24 03:31
Orders
Orders
Orders From Last 24 Hours
08/06/24 13:34
Add On- LAB Routine
08/06/24 13:58
Protein Electrophoresis Reflex [S] Routine
--- NOTE | 2024-08-07 11:14 | VATNOTE ---
Femoral line dressing in-tact, bio-patch in place with scant drainage. Drainage noted under dressing. Asked community services manager to check the dressing with this RN for second opinion on dressing status. clinical systems educator and this RN agree that dressing is OK
to be left at this time and that changing the dressing at this time would be riskier than leaving it.
--- NOTE | 2024-08-07 11:26 | W.PN.ID1 ---
Date of Service
Date of Service: August 07, 2024
Today's Communication
Continue vancomycin. Await MRI spine (C/T/L)
Assessment / Plan
Acute onset low back pain
Staph aureus bacteremia
Ongoing IVDA (fentanyl, cocaine)
Anemia
Thrombocytopenia
Elevated ESR and CRP
Hepatitis C
COPD
Endometriosis
Chronic anemia
Peptic ulcer disease
Migraines
Hx cervical spine osteomyelitis (2021)
Hx lumbar spine osteomyelitis
Left upper extremity infection with chronic osteomyelitis
Hx Subarachnoid hemorrhage
Recommendations:
Blood cultures obtained yesterday are now positive for Staph aureus.
Patient with ongoing severe back pain, but CT did not reveal any significant abnormalities. I agree that in her current state, the patient would not be able to remain immobile for a long enough time to obtain a quality study. Therefore, I do agree
that intubation is likely necessary in order to give enough sedation to obtain a quality study.
Vancomycin has been ordered.
Will repeat blood cultures tomorrow.
Await further culture data to guide antimicrobial selection/modification.
Elevated ESR and CRP are noted, but difficult to interpret given known left upper extremity chronic osteomyelitis.
����������������������������������������������������������
Chief Complaint
-: Bacteremia and Other (Severe back pain)
Subjective / Review of Systems
Patient seen and examined. Chart reviewed. CT obtained yesterday, but did not reveal any significant abnormalities. Patient reports severe ongoing pain at this time. Note from hospitalist reviewed, patient admitted to ongoing drug use with
cocaine and fentanyl
Vital Signs / Physical Exam
Vital Signs
Vital Signs
Temp Pulse Resp BP Pulse Ox
97.6 F 65 23 127/83 95
08/07/24 07:39 08/07/24 10:30 08/07/24 10:30 08/07/24 07:30 08/07/24 06:07
Physical Exam
Constitutional: Acutely Ill, Chronically Ill and Non-toxic
Head: Normocephalic
Eyes: No Conjunctival Hemorrhage and Sclera Anicteric
Cardiovascular: S1/S2; Negative S3/S4 or Murmur
Pulmonary: Coarse; Negative Wheezes, Rales or Rhonchi
Gastrointestinal: Soft, Non Distended and Normal Bowel Sounds
Musculoskeletal: Spinal Tenderness (Upper lumbar area)
Skin: Warm and Dry
Wound: Other (Left upper extremity wound dressed.)
Neurological: Awake and Alert
Psychological: Agitated
Objective Data
Lab Data
Lab Results
08/07/24 03:31
ESR 103 mm/hour (0-20) H 08/06/24 02:14
PT 15.0 Sec (11.4-14.6) H 08/06/24 12:34
INR 1.13 08/06/24 12:34
APTT 41.5 Sec (23.4-35.0) H 08/06/24 12:34
Estimated Creat Clear 72 ml/min 08/07/24 03:31
Lactic Acid 1.0 mmol/L (0.7-2.0) 08/06/24 08:15
Total Bilirubin 0.9 mg/dl (0.2-1.3) 08/07/24 03:31
AST 20 U/L (14-36) 08/07/24 03:31
ALT 14 U/L (0-35) 08/07/24 03:31
Alkaline Phosphatase 161 U/L (38-126) H 08/07/24 03:31
C-Reactive Protein 160.40 mg/L (0.0-10.00) H 08/06/24 02:14
Most recent labs reviewed.
Micro Results:
08/06/24 02:14 Blood Culture - Preliminary
Blood/Venous Staphylococcus aureus
Gram Stain - Final
08/06/24 02:15 Blood Culture - Preliminary
Blood/Venous Positive culture in progress
Gram Stain - Final
Imaging:
08/06/2024 CT chest abdomen pelvis without contrast: Evaluation is limited by lack of IV contrast. Suspected small right iliopsoas intramuscular hematoma. There is surrounding inflammatory change/edema within the right paracolic gutter and
extending into the anterior right groin subcutaneous tissue. No loculated fluid collections. Moderate to severe diffuse colonic stool burden may reflect constipation. Splenomegaly noted. There is destructive change of the left humerus midshaft
which is partially visualized and likely reflects a component of chronic osteomyelitis. Please see full dictation for additional detail.
08/06/2024 CT cervical/thoracic/lumbar spine: No acute fractures. Spine is in anatomic alignment. There are spinal fusion and laminectomy changes from C1-C4 without overt complication. Mild to moderate spinal canal and neuronal foraminal stenosis
throughout the mid to lower cervical spine. No paraspinal mass is observed. Visualized lung almeida are clear. Please see full dictation for additional detail.
Care Review
Plan reviewed with: Physician (Critical Care, Hospitalist)
.

Total time spent today was 55 minutes, which includes preparation for the visit, including review of pre-visit forms and results, patient interview and examination, reviewing pertinent studies, including laboratory results, microbiology results,
radiology studies, hospital records, specialist consultation, along with patient/caregiver counseling, documentation of clinical information and coordination of care with other healthcare professionals.
--- NOTE | 2024-08-07 11:49 | W.PN.UPDATE ---
Update Note
Progress Note Update
Patient having increasing agitation with severe intractable lower back pain. Discussed case with ID, Dr. Myers, and MRI of the thoracic + lumbar spine is urgent. Patient is not responding to IV pushes of pain medications including doses of the
100 mcg fentanyl and even doses as high as 4 mg Dilaudid IV push, with continued severe back pain.
Decision made to intubate which the patient agreed to and she even requested earlier this morning given the severity of her pain. She says if she was able to stand she 'yoselin her head into a wall to know myself out'. , Vitaly, present at
bedside during and prior to intubation. All questions answered.
--- NOTE | 2024-08-07 11:51 | W.SUR.POST ---
Surgical Immediate Post Op
Note
Bedside Endotracheal Intubation Procedure
Date of procedure: 08/07/2024
Pre Op Diagnosis: Extremis/acute respiratory distress due to severe intractable back pain
Post Op Diagnosis: Same as above
Procedure Performed: Endotracheal intubation
Primary Proceduralist: Dr. Jeffery
Secondary Surgeons: N/A
Anesthesia/RSI: 20 mg etomidate + 80 mg succinylcholine
Estimated Blood Loss: N/A
Fluids: N/A
Drains/Shunts: N/A
Specimens/Cultures: N/A
Doppler/Duplex/Angio (Y/N): N/A
Complications: No immediate complications
Procedure details: Patient was preoxygenated with BVM at 100% FiO2. RSI given as above and then patient placed into the sniff position, and S4 glidescope inserted into oropharynx with glottis easily visible. Size 8.0 ETT inserted into glottis and
seen going through cords. Stiffening wire then removed. Satisfactory ETT position was confirmed via color capnometry, and there were breath sounds appreciated over anterior chest bilaterally via auscultation. ETT was secured with ETT-castorena and
tape. CXR/ABG is ordered and pending. There were no immediate complications.
--- NOTE | 2024-08-07 12:03 | PTCARENOTE ---
Pt. intubated, Started of Fent gtt/diprivan.
ID rounded, Desperate need for MRI.
MRI scheduled for 1229.
[2024-08-07] MEDS: OFIRMEV 100 IV ×3 (12:05→22:17)
[2024-08-07] MEDS: DIPRIVAN 100 IV ×4 (12:06→23:47)
[2024-08-07] MEDS: SUBLIMAZE 100 IV ×2 (12:06→16:35)
[2024-08-07 12:20] LABS: Hepatitis B Surface Antigen Negative (Negative)
[2024-08-07] MEDS: VERSED 4 MG IV ×2 (13:00→13:45)
--- NOTE | 2024-08-07 14:03 | CM ---
Intractable spinal pain. Urgent MRI of thoracic and lumbar spine. Agitation. Intubated. [facility] notified of referral. Discharge POC: TBD.
[2024-08-07] MEDS: NIMBEX 10 MG IV (14:42)
--- NOTE | 2024-08-07 14:56 | PTCARENOTE ---
MRI orders in.
Pt. quickly maxed on Diprivan. Senior Structural Engineer discussed plan for additional sedation in MRI.
MRI sedation included
x1 nimbex IVP
x2 100 mcg fentanyl
x2 4mg versed
Prop 50 mcg gtt
Fentanyl 200 mcg gtt.
MRI completed, pt. transported back to unit uneventfully.
Senior Structural Engineer notified of titrations/ MRI events.
[2024-08-07 15:36] LABS: B.E. -2.4 mmol/L; HCO3 20.1 mmol/L (21-28); O2 Saturation % 87.4 % (94-98); PCO2 27 mmHg (32-35); pH 7.48 (7.35-7.45)
[2024-08-07 15:38] LABS: PO2 51 mmHg (83-108)
[2024-08-07 15:52] LABS: Urine Albumin 2+ (Neg - Trace); Urine Bilirubin Negative (Negative); Urine Character Clear (Clear); Urine Color Yellow; Urine Glucose Negative (Negative); Urine Ketone Negative (Negative); Urine Leukocyte Negative (Negative); Urine Nitrite Negative (Negative); Urine Occult Blood Negative (Negative); Urine Urobilinogen 2+ (Neg - 1+)
[2024-08-07 16:02] LABS: Urine Bacteria Few (Negative); Urine Red Blood Cell 0-2 /HPF (0-2)
[2024-08-07] MEDS: VANCOCIN 150 IV (18:22)
[2024-08-07 19:42] LABS: Triglycerides 165 mg/dl (10-149)
[2024-08-07] MEDS: SENNA SYRUP 8.8 MG TUBE (19:48)
[2024-08-07] MEDS: COLACE PO (19:52)
[2024-08-07 20:15] LABS: Hematocrit 31.7 % (37.0-47.0); Hemoglobin 10.7 g/dL (12.0-16.0); Mean Corp Hgb Conc. 33.8 g/dL (33.0-37.0); Mean Corpuscular Hgb 24.3 pg (27.0-31.0); Mean Corpuscular Volume 71.9 fL (81.0-99.0); Red Blood Cell Count 4.41 10^6/uL (4.20-5.40); White Blood Cell Count 17.1 10^3/uL (4.8-10.8)
[2024-08-07 20:27] LABS: Platelet Count 145 10^3/uL (130-400)
[2024-08-07] MEDS: ZOFRAN 4 MG IV (21:02)
--- NOTE | 2024-08-07 21:12 | PTCARENOTE ---
Received pt from previous RN. Pt is intubated/sedated, restless, agitated @ times. Sinus geovanny/NSR on the monitor. ETT #8 23 @ lip, repositioned to the center. AC 24/400/5/40%, lungs diminished/coarse. OG @ 55cm to low intermittent suction, pt
vomited PRN Zofran given (see MAR). Pw in place. SCDs in place. PRN Fent and Versed given (see MAR). CHG and mouth care provided. Safe environment maintained.
[2024-08-08] VITALS (32 sets, daily range): BP systolic 112–137; BP diastolic 88–102; BMI 26.9
[2024-08-08] MEDS: SUBLIMAZE 100 MCG IV ×6 (00:10→17:52)
[2024-08-08] MEDS: SUBLIMAZE 100 IV ×4 (00:25→19:08)
--- NOTE | 2024-08-08 00:28 | PTCARENOTE ---
Systems reviewed, no new changes in assessment. Fent and prop gtts maintained, see worklist. Safe environment maintained.
[2024-08-08] MEDS: VERSED 1 MG IV ×2 (01:49→17:59)
[2024-08-08] MEDS: OFIRMEV 100 IV (03:30)
--- NOTE | 2024-08-08 03:36 | PTCARENOTE ---
Systems reviewed, no new changes in assessment. AM labs provided. Fent and prop maintained (see worklist). PRNs given (see MAR). Safe environment maintained.
[2024-08-08 04:00] LABS: Hematocrit 35.5 % (37.0-47.0); Hemoglobin 11.8 g/dL (12.0-16.0); Mean Corp Hgb Conc. 33.2 g/dL (33.0-37.0); Mean Corpuscular Hgb 24.1 pg (27.0-31.0); Mean Corpuscular Volume 72.4 fL (81.0-99.0); Platelet Count 225 10^3/uL (130-400); White Blood Cell Count 23.5 10^3/uL (4.8-10.8)
[2024-08-08 04:15] LABS: ALT (SGPT) 14 U/L (0-35); AST (SGOT) 25 U/L (14-36); Albumin 3.3 g/dl (3.5-5.0); Alkaline Phosphatase 189 U/L (38-126); Blood Urea Nitrogen 26 mg/dl (7-17); Calcium 8.9 mg/dl (8.4-10.2); Carbon Dioxide 19 mmol/L (22-30); Chloride 108 mmol/L (98-107); Estimated Creatinine Clearance 56 ml/min; Glucose 127 mg/dl (70-99); Magnesium 2.5 mg/dl (1.6-2.3); Potassium 4.4 mmol/L (3.5-5.1); Sodium 138 mmol/L (135-145); Total Bilirubin 1.1 mg/dl (0.2-1.3); Total Protein 7.2 g/dl (6.3-8.2); eGFR > 60.00
[2024-08-08] MEDS: VANCOCIN 150 IV (05:21)
[2024-08-08 05:28] LABS: B.E. -4.2 mmol/L; HCO3 17.2 mmol/L (21-28); PCO2 22 mmHg (32-35); PO2 75 mmHg (83-108)
[2024-08-08] MEDS: DIPRIVAN 100 IV ×4 (05:39→20:50)
[2024-08-08] MEDS: SENNA SYRUP TUBE (07:12)
[2024-08-08] MEDS: MIRALAX TUBE (07:12)
[2024-08-08] MEDS: COLACE PO (07:12)
--- NOTE | 2024-08-08 07:15 | PTCARENOTE ---
Received patient from deputy sheriff chief. patient is intubated and sedated. Has bilateral restraints, right wrist and left upper arm. Has [place] 8 [place] [address]/5/50% saturating 100%. Patient has minimal secretions, clear. She is sinus tach on monitor.
patient has COWS assessment but is maxed on propofol and has fentanyl gtt. has required pushes overnight. Patient is NPO, has OGT to LIWS. Is incontinent, has purewick in place. Patient has wounds on left leg and left arm. due to be changed
daily. Will review orders and maintain safe environment.
--- NOTE | 2024-08-08 07:58 | W.PN.INTV ---
Today's Communication / Plan
Recommendations
Continue mechanical ventilation
General Surgery evaluation regarding left upper extremity which appears to be the source of her bacteremia and would need definitive treatment, likely including disarticulation
Best course of action going forward may be to transfer to tertiary care center ([facility]) - I will speak to the patient's tomorrow about this
In the meantime, obtain set of surveillance blood cultures today
Continue with antibiotics, changing vancomycin to Ancef which ID agrees with
Pain control
Try lowering sedation as tolerated so that we can prepare for SBT, if she is clinically stable to do so
Continue bowel regimen while on high-dose fentanyl to help counteract opioid-induced constipation
Anxiolytics as needed
Continue ICU level of care
Assessment
-
Assessment: 54-year-old female with a past medical history of IV drug use, history of staphylococcal arthritis of right shoulder s/p open irrigation and debridement with resection of distal clavicle (06/30/2023), history of hematologists
osteomyelitis of left humerus, s/p left sided above the elbow amputation (performed at [facility]), history of MRSA + MSSA bacteremia, reported history of COPD, hepatitis C virus, PUD, history of cervical/lumbar spine osteomyelitis,
endometriosis, migraine headaches, history of asthma, depression with history of suicide attempt and reported history of MS who presents with severe lower back pain for 2 days. Patient says that pain started suddenly after she was in her home going
downstairs to get a drink. Denies any prior trauma. She does continue to inject cocaine and fentanyl -patient says she uses 14 bags a day. The is not privy to the patient's drug use. Before these past 2 days, the patient was doing okay
with no back pain. She does have a chronic left upper extremity wound which has been there for years. In the ER she was febrile to 100.5 �F, tachycardic to 105, respiratory rate 18, BP 145/94 and saturating 96% on room air. Initial labs
significant for Hb 5.5, WBC 10.9, platelet count 9 (previously 186 on 06/30/2023), ESR elevated at 103, sodium 133, lactate 2.2, and CRP 160. Blood cultures were collected. Imaging was ordered however patient was unable to lay flat despite being
given pain medications, hence imaging unable to be obtained. In the ER she received Tylenol, aztreonam, hydromorphone, Toradol, Versed and 1 L NS 0.9%. Patient had inadequate IV access and difficult stick, hence a left femoral central line was
placed. Given her significant thrombocytopenia with concern for developing opiate withdrawal and her intractable back pain, patient was admitted to the ICU and Tax Form [employer] services consulted for additional management/recommendations.
Chronic conditions [employer]ESS: History of staphylococcal (MSSA) arthritis of right shoulder s/p right shoulder open irrigation and debridement with resection of distal clavicle (06/30/2023), history of hematogenous osteomyelitis of left humerus, chronic left
upper extremity wound with suspected left humerus osteomyelitis, history of MRSA + MSSA bacteremia (MRSA in June 2021; MSSA in June 2023), reported history of COPD, hepatitis C, PUD, history of cervical/lumbar spine osteomyelitis, Parkinson's esophagus,
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
Impression:
#Intractable lower back pain with concern for lumbar vs thoracic OM vs discitis
#Acute respiratory distress due to above requiring intubation (08/07/2024 in ICU)
#Polysubstance abuse/IV drug abuse with suspected withdrawal syndrome
#Acute anemia
#Small right iliopsoas intramuscular hematoma � possibly spontaneous due to her severe pancytopenia present on admission
#Severe thrombocytopenia with suspected ITP versus sequelae of sepsis
#Elevated inflammatory markers (CRP: 160, ESR: 103)
#Nausea/vomiting with nonbloody emesis
#History of MRSA + MSSA bacteremia (MRSA in June 2021; MSSA in June 2023)
#History of COPD/asthma
#Reported history of HCV
#PUD
#History of dilated cardiomyopathy reportedly from cocaine use
#History of depression with prior suicide attempt
#Reported history of MS
Plan:
- Patient presented with severe lower back pain and unfortunately has been unable to lay flat to undergo imaging
- We did obtain imaging on 08/[address] cervical/thoracic/lumbar spine, all showing no acute fracture or external abscess, with overall mild multilevel DDD and facet disease.
- MRI imaging of cervical/thoracic/lumbar spine obtained on 08/07 showing no signs of discitis or osteomyelitis or epidural abscess. There was a right iliopsoas intramuscular hematoma which was seen previously on CT abdomen/pelvis from 08/06/2024
- Most likely source for her Staph aureus bacteremia is her left upper extremity vs endocarditis -> consult general surgery; if general surgery is unable to intervene as she will likely require shoulder disarticulation, then best option is to
transfer her to [place] for evaluation by orthopedic surgery and plastic surgery
- Repeat set of surveillance blood cultures today as the set of blood cultures from every day thus far has been positive
- Continue to tend WBC and monitor temperature curve
- Check echo to assess for endocarditis
- Change IV vanco to Ancef as her blood Cx are growing MSSA - this was agreed upon by ID
- Will try to get her femoral CVC removed and have peripheral IVs inserted; may need PICC as she has very poor veins
- Continue with mechanical ventilation with daily SAT/SBT if clinically appropriate
- Maintain plateau pressure <30 and titrate FiO2 + PEEP to keep SpO2 >90-94%
- Continue aspiration precautions; keep HOB >30-45�
- prn nebulized bronchodilators - not currently bronchospastic
- Oropharyngeal + deep ETT suctioning with subglottic as needed
- Daily CXR + blood gas
- Daily vent adjustments as needed based on blood gas and SaO2
- Low level of sedation with goal RASS as 0 to -2
- Given her IV drug use with suspected component of withdrawal from fentanyl with xylazine/medetomidine, we started precedex and ketamine drips on 08/06.
- Unfortunately, Precedex drip stopped overnight on 08/06 - 08/07 due to bradycardia into the 40s. Ketamine drip also stopped as was not leading to any improvement in her agitation or pain.
- Seems that her nausea/vomiting has improved � start micro induction of buprenorphine with other supportive medications including: clonidine, Zofran, tizanidine and and Tylenol
- Trend QTc if she continues to receive Zofran vs Reglan (current QTc 457ms on 08/06/2024)
- Her platelet count has markedly improved and this is attributed to Decadron which was started to treat strong;y suspected ITP
- Continue Decadron for total of 4 days, which was the recommendation of hematology
- Transfuse to keep Hb >7-8 g/dL, andkeep plt>50k given her acute anemia
- Maintain euglycemia while on high-dose steroids with goal BG 140-180
- Patient currently has no signs of active GI bleed hence do not believe she needs a GI consult or Protonix at this juncture
- Patient's LDH is elevated hence there is concern for intravascular hemolysis; follow up haptoglobin
- Patient's coags were checked and PT + PTT were mildly elevated with fibrinogen WNL, hence ruling out DIC as a cause of her thrombocytopenia
- Maintain MAP>65
- Replete electrolytes with K>4, Mg>2
- DVT ppx: Now that platelet count is in normal range, okay to start chemical prophylaxis with Lovenox
Continue with ICU level of care for this critically ill patient.
Critical care statement: A total of 38 minutes of critical care time was provided for this patient today. This includes management of unstable vital signs, evaluation of the patient at bedside, reviewing the patient's pertinent medical records
including radiographs, microbiology, laboratory evaluations, and discussion with primary team, consultants, pharmacy, nutrition, physical therapy, case management, charge nurse, critical care nursing, and respiratory therapy.
Subjective Dataa
Subjective Data
Date of Service:
Date of Service: August 08, 2024
Chief Complaint: Tax Form Preparer Follow Up
Subjective:
Patient seen today at bedside. Remains intubated on AC/CMV at 20/400/5/40% with PIP 23 cmH2O, VTe 366 cc and breathing at 20 breaths/min. She remains well sedated currently on 175 mcg/h fentanyl, and 50 mcg/kg/min of propofol. Afebrile overnight.
Review of Systems
General: Unobtainable - Sedation
Objective Data
Data Reviewed
Vital Signs / I&O / Oxygen:
Vital Signs
Temp Pulse Resp BP Pulse Ox
97.3 F 110 20 125/99 100
08/08/24 07:21 08/08/24 08:00 08/08/24 08:00 08/08/24 08:00 08/08/24 08:21
Intake and Output
08/07/24 08/08/24 08/09/24
06:59 06:59 06:59
Intake Total 3580.2 / 3583.1 1363.7 / 1399.2 71.0 / 71.0
Output Total 200 / 200 540 / 540
Balance 3380.2 / 3383.1 823.7 / 859.2 71.0 / 71.0
SaO2 [A/C] 99
SaO2 100
Physical Exam
General: Respiratory Distress (negative), Comfortable, Chills (negative), Sweats (negative) and Other (Middle-age female, appears chronically ill, with left upper extremity below elbow amputation, currently intubated/sedated)
HEENT: Normocephalic, Anicteric and Other (ETT in place)
Cardiovascular: S1-S2 and Peripheral Edema (negative)
Respiratory: Wheeze (negative), Crackles (negative), Rhonchi (negative), Accessory Resp Muscle Use (mild-moderate due to severe pain) and ET Tube (Mechanical breath sounds heard bilaterally)
GI: Soft, Non Distended, Non Tender and Normal Bowel Sounds
Neurology: Tremors (negative) and Other (Sedated)
Skin: Warm, Dry, Cyanosis (negative), Jaundice (negative) and Other (Lesion in proximal left upper extremity with areas of necrosis)
Labs/Micro/Reports
Lab Data
08/08/24 03:29
06/13/25 03:29
Laboratory Results
08/07/24 08/08/24
05:13
pH 7.48 H 7.50 H
pCO2 27 L 22 L
pO2 51 L* 75 L
HCO3 20.1 L 17.2 L
O2 Delivery Level
Microbiology
08/06/24 02:15 Blood/Venous Blood Culture - Preliminary
Staphylococcus aureus
08/06/24 02:15 Blood/Venous Gram Stain - Final
08/06/24 02:14 Blood/Venous Blood Culture - Preliminary
Staphylococcus aureus
08/06/24 02:14 Blood/Venous Gram Stain - Final
[2024-08-08] MEDS: DECADRON 60 MG IV (08:32)
[2024-08-08 09:43] LABS: Platelet Antibody, Direct IgG Negative (Negative); Platelet Antibody, Direct IgM Strong Pos (Negative)
--- NOTE | 2024-08-08 11:56 | W.PN.HOSP.TC ---
Today's Communication/Plan
-
Continue ventilator for now
CT of the upper extremity
Continue antibiotics
Follow cultures
I would prefer to use an anticholinergic medicine for opiate withdrawal symptoms as I am afraid she will go through withdrawal symptoms once she is off of the ventilator and restarted.
Start Lovenox for DVT prophylaxis if and when okay with hematology
Assessment / Plan
Assessment / Plan
54-year-old female with IV drug abuse presented with back pain. She uses 10 bags of fentanyl a day
Chest [id number] by me bibasilar opacities atelectasis/pneumonia
MRI of the cervical, thoracic and lumbar spine-no evidence of discitis or osteomyelitis or epidural abscess in the cervical spine, thoracic spine or lumbar spine.
Right iliopsoas intramuscular hematoma
CT abdomen and pelvis-small right iliopsoas hematoma-intramuscular. Surrounding inflammatory changes/edema within the right paracolic gutter and extending into the anterior right groin subcutaneous tissues. No loculated fluid collections.
Moderate to severe diffuse colonic stool burden may reflect constipation. Splenomegaly. Destructive changes in the left humerus midshaft partially visualized likely reflecting comment of chronic osteomyelitis.
Humerus [id number] deformity of the left humerus midshaft with chronic erosion and sclerosis with overlying soft tissue wound and keeping with chronic osteomyelitis change progressed from prior. Superimposed acute component cannot be excluded
Sedated on the vent
Cardiovascular system S1-S2 appreciated
Chest clear to auscultation
Abdomen soft and nontender
Left upper arm full-thickness ulcer
Scratch ramírez on the buttocks
# TME secondary to drug withdrawal
Since patient was high risk for respiratory depression intubated
Continue fentanyl and Versed
Cannot use Precedex secondary to bradycardia
# MSSA bacteremia and sepsis in the setting of IV drug abuse
Prior history of MSSA bacteremia with osteomyelitis
Cultures positive on 08/06/2024
Cultures pending from 08/07/2024
Follow cultures until negative
Started on vancomycin
Infectious disease consultation appreciated
# Acute back pain-nontraumatic
CT abdomen and pelvis raises suspicion for small right iliopsoas intramuscular hematoma surrounded by inflammatory changes and edema within the paracolic gutter
In the setting of bacteremia need to rule out infection
# IV drug abuse Fentanyl and cocaine
Urine drug screen positive for fentanyl, opiates and cocaine
Up to 10 bags of fentanyl and bundle of cocaine
Started on microdosing protocol, now on hold secondary to nausea
I would prefer to use an antagonist also for the opiates while she is receiving the fentanyl so that she will not go through withdrawal symptoms once off of the ventilator when we start Suboxone.
May need rehab if patient is agreeable
# Chronic left upper extremity wound
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
Tissue culture from 06/30/2023 positive for MSSA
Humerus x-ray chronic osteomyelitis of the left midshaft
Surgery Vs ortho eval
CT ordered
Wound care
# Severe microcytic anemia with a hemoglobin of 5.5
No source of external bleeding
Transfused with 4 units of packed red blood cells
Hemoglobin improved
Iron deficiency anemia
Hemoccult stool
# Severe thrombocytopenia with platelets of 9K
Transfused with 3 units of platelets
Hematology input appreciated
Suspicion for ITP.
Platelets improved
IV steroids
# Constipation-likely narcotic induced-continue bowel regimen
# Hepatitis C- Unclear if treated.
# History of cervical spine issues C2-C3 osteomyelitis with epidural phlegmon was treated at [facility] in June 2021. She had cervical spine incision and drainage and fusion with hardware.
# History of lumbar spine osteomyelitis
# History of right acromioclavicular joint septic arthritis and osteomyelitis June 2023
# History of migraines
# Allergic to penicillin
# Hypoalbuminemia
# History of depression with prior suicide attempt
# History of COPD/asthma
# History of cardiomyopathy from drug abuse
# History of endometriosis/adenomyosis
# History of MRSA bacteremia 2021
# Peptic ulcer disease-add PPI
# Smoker-cessation counseling when extubated
# DVT prophylaxis-SCDs. Start Lovenox when okay with hematology
# Full code
Note that patient does not take any medicines as Op.
Prognosis appears to be poor given ongoing drug abuse and all the medical problems that she has.
Part of this note was created using voice recognition system. Occasional wrong word or��sound alike� substitutions may have inadvertently occurred due to the inherent limitations of voice recognition software. If noted kindly bring it to my
attention for correction.
Total Critical Care Time 45 minutes. I was immediately available to the patient and staff. I personally examined, reviewed labs, diagnostic images/reports, interpretations, treatment plans, discussed patient care with other providers , entered
orders as appropriate and documented the medical record.
Anticipated Discharge: > 48 hours
Subjective/Interval History
-
Date of Service: August 08, 2024
Objective Data
-
Labs:
Laboratory Results
08/08/24 08/08/24
03:29 05:13
WBC 23.5 H
Hgb 11.8 L
Hct 35.5 L
Plt Count 225 D
HCO3 17.2 L
Sodium 138
Potassium 4.4
Chloride 108 H
Carbon Dioxide 19 L
BUN 26 H
Creatinine 0.9
Glucose 127 H
Calcium 8.9
Total Bilirubin 1.1
AST 25
ALT 14
Alkaline Phosphatase 189 H
Vital Signs:
Vital Signs
Temp Pulse Resp BP Pulse Ox
97.3 F 110 20 125/99 100
08/08/24 07:21 08/08/24 08:00 08/08/24 08:00 08/08/24 08:00 08/08/24 11:17
I&O
08/07/24 08/08/24 08/09/24
06:59 06:59 06:59
Intake Total 3580.2 / 3583.1 1363.7 / 1399.2 142.0 / 142.0
Output Total 200 / 200 540 / 540
Balance 3380.2 / 3383.1 823.7 / 859.2 142.0 / 142.0
--- NOTE | 2024-08-08 12:09 | W.PN.ID1 ---
Date of Service
Date of Service: August 08, 2024
Today's Communication
Continue antibiotics. Narrow to cefazolin. See below�
Assessment / Plan
Acute onset low back pain
Staph aureus bacteremia
Ongoing IVDA (fentanyl, cocaine)
Anemia
Thrombocytopenia
Elevated ESR and CRP
Hepatitis C
COPD
Endometriosis
Chronic anemia
Peptic ulcer disease
Migraines
Hx cervical spine osteomyelitis (2021)
Hx lumbar spine osteomyelitis
Left upper extremity infection with chronic osteomyelitis
Hx Subarachnoid hemorrhage
Recommendations:
MRI imaging of the spinal column is negative for any significant findings. Specifically, no epidural abscess, discitis or vertebral osteomyelitis noted.
Blood cultures reveal presence of MSSA. Given appearance of left upper extremity, suspect a chronic osteo is the source. Site of injection of drugs (fentanyl, cocaine) unclear, but suspect it was into this wound. Davie purulence is noted.
Narrow antibiotics to cefazolin 2 g IV every 8 hours.
There is no likelihood of salvaging the left upper extremity, and would consider it as the source of her bacteremia. Discussed with Critical Care, and would ask surgery to comment on potential amputation of the stump.
Follow repeat blood cultures to assess clearance. 08/07 cultures are pending. Will repeat blood cultures tomorrow.
Continue to monitor white count and temperature curve.
Patient remains critically ill and vent dependent in ICU.
����������������������������������������������������������
Chief Complaint
-: Bacteremia and Other (Severe back pain)
Subjective / Review of Systems
Patient seen and examined. Remains on vent at this time (vented previously for sedation and imaging).
Review of Systems: No Fever
Vital Signs / Physical Exam
Vital Signs
Vital Signs
Temp Pulse Resp BP Pulse Ox
97.3 F 110 20 125/99 100
08/08/24 07:21 08/08/24 08:00 08/08/24 08:00 08/08/24 08:00 08/08/24 11:17
Physical Exam
Constitutional: Acutely Ill, Chronically Ill and Toxic
Head: Normocephalic
Eyes: No Conjunctival Hemorrhage and Sclera Anicteric
Cardiovascular: S1/S2; Negative S3/S4 or Murmur
Pulmonary: Other (ET tube in place to vent)
Gastrointestinal: Soft, Non Distended and Normal Bowel Sounds
Wound: Other (Left upper extremity wound examined. Positive purulent drainage from several areas. Positive probe to 1 cm directly onto bone.)
Neurological: Other (Sedated)
Objective Data
Lab Data
Lab Results
08/08/24 03:29
08/08/24 03:29
ESR 103 mm/hour (0-20) H 08/06/24 02:14
PT 15.0 Sec (11.4-14.6) H 08/06/24 12:34
INR 1.13 08/06/24 12:34
APTT 41.5 Sec (23.4-35.0) H 08/06/24 12:34
Estimated Creat Clear 56 ml/min 08/08/24 03:29
Lactic Acid 1.0 mmol/L (0.7-2.0) 08/06/24 08:15
Total Bilirubin 1.1 mg/dl (0.2-1.3) 08/08/24 03:29
AST 25 U/L (14-36) 08/08/24 03:29
ALT 14 U/L (0-35) 08/08/24 03:29
Alkaline Phosphatase 189 U/L (38-126) H 08/08/24 03:29
C-Reactive Protein 160.40 mg/L (0.0-10.00) H 08/06/24 02:14
Most recent labs reviewed.
Micro Results:
08/06/24 02:15 Blood Culture - Preliminary
Blood/Venous Staphylococcus aureus
Gram Stain - Final
08/06/24 02:14 Blood Culture - Preliminary
Blood/Venous Staphylococcus aureus
Gram Stain - Final
08/07/24 15:29 Blood Culture - Pending
Blood/Venous
08/07/24 15:29 MRSA Screen - Pending
Nose
Imaging:
08/06/2024 CT chest abdomen pelvis without contrast: Evaluation is limited by lack of IV contrast. Suspected small right iliopsoas intramuscular hematoma. There is surrounding inflammatory change/edema within the right paracolic gutter and
extending into the anterior right groin subcutaneous tissue. No loculated fluid collections. Moderate to severe diffuse colonic stool burden may reflect constipation. Splenomegaly noted. There is destructive change of the left humerus midshaft
which is partially visualized and likely reflects a component of chronic osteomyelitis. Please see full dictation for additional detail.
08/06/2024 CT cervical/thoracic/lumbar spine: No acute fractures. Spine is in anatomic alignment. There are spinal fusion and laminectomy changes from C1-C4 without overt complication. Mild to moderate spinal canal and neuronal foraminal stenosis
throughout the mid to lower cervical spine. No paraspinal mass is observed. Visualized lung almeida are clear. Please see full dictation for additional detail.
Care Review
Plan reviewed with: Physician (Critical Care)
--- NOTE | 2024-08-08 12:50 | W.PN.ONC ---
Documented by User: Cuco Keller MD, Resident 08/08/24 13:01
Today's Communication / Plan
-
Received 3 out of 4th dose of dexa IV 40 mg today
follow up as op in 1-2 after discharge to check plt count
Will give short-term PPI
Impression
Impression
54-year-old F with history of IV drug use disorder and multiple episodes of osteomyelitis in the past couple years, who presented to the ED complaining of lower back pain and was found to have low-grade fever, elevated inflammatory markers, anemia,
severe thrombocytopenia. LFTs normal. Coagulation panel is normal. We have been consulted for evaluation of thrombocytopenia.
# Severe thrombocytopenia
Differential diagnosis includes: DIC, TTP, ITP
Blood smear was seen in Path lab-no evidence of any schistocytes/hemolysis
Coagulation panel checked and was normal, Fibrinogen normal
LDH elevated at 289- antiplatelet IgM antibody positive- haptoglobin,direct Guillermo, and SPEP pending
Given above findings, the etiology of thrombocytopenia is more consistent with ITP in the setting of sepsis-dexamethasone 40mg daily x4 days starting 08/05- will start PPI
Platelet count sig improved s/p 4 unit of platelets-follow up as op in 1-2 after discharge to repeat plt count
Continue to monitor CBC
# Acute on chronic anemia
Severe microcytic anemia-improving
Currently at 11.8 s/p 4 units of PRBC-Baseline around 7
Currently no sign of overt bleeding
Iron studies- serum Iron and saturation low suggesting mixed EILEEN and chronic disease
Could potentially consider Endo/colonoscopy once patient is more stable
Monitor CBC
# Fever with lower back pain
Intubated on 08/07.
Spinal MRI did not show any evidence of epidural abscess
Abdominal CT suggests small right iliopsoas intramuscular hematoma. There is surrounding inflammatory change/edema within the right paracolic gutter and extending into the anterior right groin subcutaneous tissues. No loculated fluid collections.
Management per primary team and ID-Continue pain control with Tylenol, oxycodone and IV Dilaudid
Positive blood culture with s.aureus-management per ID with vancomycin
# Chronic left upper extremity wound
Management per primary team and ID
Full code
Plan
Plan
Dexamethasone 40mg daily (3/4 dose)-Will give short-term PPI for 1 week
Platelet count significantly improved, Hgb stable-Continue to monitor CBC
Direct Antiplatelet IgM positive,Haptoglobin, direct Guillermo, and SPEP pending
Sepsis management per ID
Will continue to follow
Subjective/Objective
Subjective/Objective
Vital Signs:
Vital Signs
Temp Pulse Resp BP Pulse Ox
97.3 F 119 20 112/92 99
08/08/24 07:21 08/08/24 12:00 08/08/24 12:00 08/08/24 12:00 08/08/24 12:00
Lab Results:
Laboratory Data
WBC 23.5 10^3/uL (4.8-10.8) H 08/08/24 03:29
Hgb 11.8 g/dL (12.0-16.0) L 08/08/24 03:29
Plt Count 225 10^3/uL (130-400) D 08/08/24 03:29
PT 15.0 Sec (11.4-14.6) H 08/06/24 12:34
INR 1.13 08/06/24 12:34
APTT 41.5 Sec (23.4-35.0) H 08/06/24 12:34
eGFR > 60.00 08/08/24 03:29

Documented by User: CAROLYN Napoles 08/08/24 15:04
Plan
Plan
Dexamethasone 40mg daily (3/4 dose)-Will give short-term PPI for 1 week
Platelet count significantly improved, Hgb stable-Continue to monitor CBC
Direct Antiplatelet IgM positive,Haptoglobin, direct Guillermo, and SPEP pending
Sepsis management per ID
Will continue to follow
Pt seen and examined. I agree with the assessment and plan by Dr. Keller. CAROLYN Meneses
[2024-08-08] MEDS: NSS (PRESERVATIVE FREE) 10 ML IV (13:27)
[2024-08-08] MEDS: PROTONIX IV 40 MG IV (13:27)
[2024-08-08] MEDS: ANCEF 10 IV ×2 (13:27→23:03)
--- NOTE | 2024-08-08 13:42 | CON.GS ---
Addendum entered and electronically signed by Orlando Darnell MD 08/08/24 17:00:
Patient seen and examined in follow-up this afternoon with certified prosthetist vice president. Agree with documented progress note with additions noted here.
Brief HPI: General Surgery consultation requested for evaluation of chronic left upper extremity wound. Patient is currently intubated and sedated in the ICU reportedly for inadequate pain control. Reviewing medical records and in discussions with
treating physicians patient has previous history of left upper extremity above elbow amputation in 2021 secondary to osteomyelitis.
Afebrile, sinus tachycardia, normotensive
Intubated sedated
There is an active chronic wound along the humeral shaft with exposed bone and subcutaneous tissues. This extends over length of close to 10 cm and about 3 cm in width. No purulence but there is malodor. No severe surrounding cellulitis. No wet
gangrene.
Left humerus x-ray 08/06/2024: Chronic deformity of left humerus midshaft with chronic erosion and sclerosis with overlying soft tissue wound keeping in chronic with osteomyelitis change progressed from prior.
Assessment/plan: 54-year-old female with chronic left upper extremity wound, osteomyelitis with exposed bone in the setting of having previously undergone a left upper extremity amputation at the level just above the elbow.
There does not appear to be any active wet gangrene or abscess component to require emergent/urgent surgical debridement or drainage for which general surgery would be of assistance with.
This appears to be a chronic progressive process and therefore likely the best option for curative intent would be removal of the left humerus at the shoulder joint with subsequent soft tissue closure. This likely would be a combination of both
orthopedics and plastic surgery. Available for assistance however expertise of these services would be required for anticipated definitive surgery.
Please call if can be of further assistance with care. Reviewed with photographer apprentice lithographic.
Original Note:
Consultation
-
Date/Time Consultation Requested: o08/08/2024
Date/Time Consultation Performed: o08/08/2024
Requesting Provider: Arnoldo Jeffery
Performing Provider: Orlando Darnell
Reason for Consultation: Bacteremia with source of left upper extremity chronic wound, amputation?
Medical History
-
Chief Complaint: Acute onset back pain
History of Present Illness:
Patient is a 54-year-old female with history of IV drug use, hepatitis C, cervical spine osteomyelitis, lumbar spine osteomyelitis, left upper extremity wound with osteomyelitis requiring amputation of the arm in 2021 who presented to the ER with
acute onset of back pain. She denied any fall or trauma, denied any nausea, vomiting, diarrhea or difficulty with passing urine or stool. Pain was uncontrollable despite 4 mg of Dilaudid along with Tylenol and Toradol. She apparently had used
fentanyl and cocaine on the morning of presentation to the ER. Patient admitted to the admitting physicians that she had been using fentanyl on and off. She denied any fever or chills at home.
Imaging of the spine was done that showed cervical spines stenosis from C1-C4 and C5-6 space narrowing. There were also osseous hemangiomas noted on the MRI but there was not any concern for epidural abscess, discitis or acute compression fracture.
CT abdomen pelvis and chest revealed small right ileopsoas intramuscular hematoma with surrounding inflammatory change/edema within the right paracolic gutter.
ID evaluated the patient, blood cultures came back positive for MRSA sensitive Staph aureus. Patient was started on cefazolin. Initially it was thought to be back as the source of infection but that was not found. There is a full-thickness ulcer
on patient's left arm, that bleeds and has multiple clots on wound bed.
On review of imaging there is evidence of chronic osteomyelitis that has progressed with superimposed acute component.
Surgery consulted to comment on the arm wound and suggest if it needs amputation since it is the clear source of infection in the given context.
Past Medical History
Past Medical History: Other (IV drug abuse HCV COPD Endometriosis Chronic anemia Peptic ulcer disease Migraine headaches Cervical spine osteomyelitis -2021 Lumbar spine osteomyelitis Left upper extremity wound with osteomyelitis requiring amputation
of the arm -2021 Septic emboli to the lungs and brain with subarachnoid hemorrh)
Past Surgical History: Appendectomy, Orthopedic (Incision and drainage of right shoulder with excision of small part of distal clavicle, left forearm amputation) and Tonsilectomy
Social History
Tobacco: Smoker
Alcohol: Occasional
Drug: IVDA (10-14 bags of fentanyl daily)
Personal:
Living: With Family
Family History
Family History: Reviewed & Not Pertinent
Allergies / Home Medications
Allergy/AdvReac Type Severity Reaction Status Date / Time
bee venom protein (honey bee) Allergy Anaphylaxis Verified 08/06/24 01:38
codeine Allergy Hives Verified 08/06/24 01:38
penicillin G Allergy Anaphylaxis Verified 08/06/24 01:38
/childhood
prochlorperazine edisylate Allergy Itching Verified 08/06/24 01:38
(From [employer]'s Fabricationazine)
prochlorperazine maleate Allergy Itching Verified 08/06/24 01:38
(From Compazine)
sumatriptan (From Imitrex) Allergy LOW BP Verified 08/06/24 01:38
sumatriptan succinate (From Allergy LOW BP Verified 08/06/24 01:38
Imitrex)
trimethobenzamide (From Allergy Unknown Verified 08/06/24 01:38
Tigan)
�Medication �Instructions �Recorded �Confirmed �Type
No Meds [No Current Medications] 08/06/24 08/06/24 History
Review of Systems
-
All other systems: Negative unless noted
A 10 point review of systems was completed, and was negative except as per HPI.
Physical Exam
Vital Signs
Temp Pulse Resp BP Pulse Ox
97.3 F 124 20 115/94 99
08/08/24 07:21 08/08/24 13:30 08/08/24 13:30 08/08/24 13:00 08/08/24 13:30
08/07/24 08/08/24 08/09/24
06:59 06:59 06:59
Actual Weight 60.3 kg 60.4 kg
Body Mass Index (BMI) 26.9
Lab Results
08/08/24 03:29
08/08/24 03:29
WBC 23.5 10^3/uL (4.8-10.8) H 08/08/24 03:29
Hgb 11.8 g/dL (12.0-16.0) L 08/08/24 03:
Hct 35.5 % (37.0-47.0) L 08/08/24 03:
Plt Count 225 10^3/uL (130-400) D 08/08/24 03:29
Abs Immat Gran (auto) 0.2 10^3/uL (0-0.05) H 08/06/24 12:12
Neutrophils % 81.6 % (42.2-75.2) H 08/06/24 12:12
Physical Exam
General: Other (Intubated and sedated)
HEENT: Anicteric
Respiratory: Clear; Negative Wheezes, Rales or Rhonchi
Cardiac: S1/S2, Regular Rhythm and Other (Tachycardia)
GI: Soft, Non Tender, Non Distended and Normal Bowel Sounds
Musculoskeletal: No Clubbing, No Cyanosis and Other (Large,full thickness chronic wound on left arm )
Neuro: Other (Sedated)
Assessment / Plan
-
Impression
54-year-old female with IV drug abuse presented with acute onset of back pain associated with fevers. Blood culture reveals MSSA bacteremia with source suspected to be left arm chronic full-thickness ulcer with osteomyelitis. Admitted in ICU as
patient required intubation and is currently sedated and is on micro dosing with oxycodone and buprenorphine
Ongoing issues
Acute thrombocytopenia of 9-received 4 packs of platelet transfusion-suspected ITP-on 40 mg dexamethasone
Microcytic anemia requiring 4 packed RBCs currently stable at 11.8
Fever with severe back pain-requiring multiple doses of Precedex, Dilaudid, currently intubated and sedated
Blood cultures consistent with MSSA bacteremia-on cefazolin
Leukocytosis-23.5
Right ileopsoas muscle small hematoma with surrounding edema
Left arm full-thickness wound, with bleeding and clots on wound bed-currently wound is dressed with dry intact dressing
Assessment/plan
MRI imaging of spinal column is negative for any epidural abscess, discitis or vertebral osteomyelitis
X-ray of left humerus reviewed-chronic deformity of left humerus midshaft with chronic erosion and sclerosis, overlying soft tissue wound, chronic osteomyelitis change, progressing
Left arm wound appears to be the source of sepsis
Wound appears grossly infected, leading to sepsis and then complications of thrombocytopenia, anemia, and systemic compromise
Full-thickness ulcer with chronic osteomyelitis, nonhealing, acutely infected-unfortunately the best option in this case would be to amputate the arm to save patient's life
Will call patient's and discuss treatment plan
--- NOTE | 2024-08-08 14:41 | PTCARENOTE ---
awaiting surgical input for left upper arm wound. Wound culture ordered and sent.
[2024-08-08] MEDS: BELBUCA 300 MCG BUCCAL ×3 (15:33→23:49)
[2024-08-08] MEDS: CATAPRES 0.1 MG TUBE ×2 (15:34→23:02)
[2024-08-08] MEDS: ROXICODONE ORAL SOLUTION 20 MG TUBE ×3 (15:34→23:49)
--- NOTE | 2024-08-08 16:16 | CM ---
Intubated, IV/AB, IV/Fentanyl. Discharge Plan of Care TBD. [facility] involved in case.
[2024-08-08] MEDS: LOVENOX 40 MG SC (17:52)
--- NOTE | 2024-08-08 18:04 | PTCARENOTE ---
IV team here to reposition PICC. Patient was agitated, repostioned and medicated. see MAR
--- NOTE | 2024-08-08 18:16 | VATNOTE ---
right picc redirected per protocol. Awaiting repeat CXR
--- NOTE | 2024-08-08 19:48 | VATNOTE ---
Right PICC pulled back 4cm per protocol & Radiolgist recommendation.
--- NOTE | 2024-08-08 20:00 | PTCARENOTE ---
Received pt. at 1900. Pt. currently sedated on ventilator. No signs of pain/discomfort currently. Afebrile. Heart rhythm sinus. Blood pressure normotensive. Ventilator settings verified. Lungs sound coarse. Currently NPO. NG tube in place. Currently
clamped. Straight cath PRN. Skin as documented. Vital signs stable at this time.
[2024-08-08] MEDS: COLACE LIQUID 100 MG TUBE (20:05)
[2024-08-08] MEDS: SENNA SYRUP 8.8 MG TUBE (20:05)
[2024-08-08 20:45] LABS: HIV Combo Negative (Negative)
[2024-08-08 21:05] LABS: Hepatitis C Antibody Reactive (Negative)
[2024-08-08 22:17] LABS: Hepatitis B Surface Antibody Indeterminate
[2024-08-09] VITALS (24 sets, daily range): BP systolic 103–143; BP diastolic 46–122; BMI 27.0
--- NOTE | 2024-08-09 | PTCARENOTE ---
Pt. assessment unchanged. Remains ventilated and sedated. Vital signs currently stable.
[2024-08-09 00:42] LABS: Haptoglobin 202 mg/dL (30-200)
[2024-08-09] MEDS: SUBLIMAZE 100 IV ×5 (01:14→23:57)
[2024-08-09] MEDS: DIPRIVAN 100 IV ×5 (01:15→21:04)
[2024-08-09 01:57] LABS: Urine Albumin 2+ (Neg - Trace); Urine Bilirubin Negative (Negative); Urine Character Cloudy (Clear); Urine Color Amber; Urine Glucose Negative (Negative); Urine Ketone Negative (Negative); Urine Leukocyte Negative (Negative); Urine Nitrite Negative (Negative); Urine Occult Blood Negative (Negative); Urine Specific Gravity 1.025 (<1.030); Urine Urobilinogen Negative (Neg - 1+)
[2024-08-09 02:14] LABS: Urine Squamous Cell >30 /LPF (Few)
[2024-08-09 02:15] LABS: Urine Bacteria Few (Negative); Urine White Cell 0-2 /HPF (0-5)
[2024-08-09 03:27] LABS: Hematocrit 38.4 % (37.0-47.0); Hemoglobin 12.6 g/dL (12.0-16.0); Mean Corp Hgb Conc. 32.8 g/dL (33.0-37.0); Mean Corpuscular Hgb 24.1 pg (27.0-31.0); Mean Corpuscular Volume 73.4 fL (81.0-99.0); Platelet Count 334 10^3/uL (130-400); Red Blood Cell Count 5.23 10^6/uL (4.20-5.40); White Blood Cell Count 19.3 10^3/uL (4.8-10.8)
[2024-08-09 03:40] LABS: ALT (SGPT) 12 U/L (0-35); AST (SGOT) 18 U/L (14-36); Albumin 3.4 g/dl (3.5-5.0); Alkaline Phosphatase 175 U/L (38-126); Blood Urea Nitrogen 32 mg/dl (7-17); Calcium 8.9 mg/dl (8.4-10.2); Carbon Dioxide 17 mmol/L (22-30); Chloride 111 mmol/L (98-107); Direct Bilirubin 0.4 mg/dl (0.0-0.4); Estimated Creatinine Clearance 56 ml/min; Glucose 117 mg/dl (70-99); Magnesium 2.8 mg/dl (1.6-2.3); Potassium 4.7 mmol/L (3.5-5.1); Sodium 138 mmol/L (135-145); Total Bilirubin 0.6 mg/dl (0.2-1.3); Total Protein 7.4 g/dl (6.3-8.2); eGFR > 60.00
[2024-08-09] MEDS: BELBUCA 300 MCG BUCCAL ×3 (03:46→11:56)
[2024-08-09] MEDS: ROXICODONE ORAL SOLUTION 20 MG TUBE ×6 (03:46→23:08)
--- NOTE | 2024-08-09 04:00 | PTCARENOTE ---
Pt. assessment remains unchanged. AM labs drawn. Vital signs stable at this time.
[2024-08-09 04:11] LABS: Venous Blood Gas B.E. -4.6 mmol/L (-4 to +4); Venous Blood Gas HCO3 19.4 mmol/L (22-27); Venous Blood Gas pCO2 32 mmHg (35-48); Venous Blood Gas pH 7.39 (7.32-7.43); Venous Blood Gas pO2 55 mmHg (30-50)
[2024-08-09 04:26] LABS: % Basophils 0.1 % (0-2); % Immature Granulocytes 1.2 % (0-0.5); % Lymphocytes 13.7 % (20.5-51.1); % Monocytes 9.4 % (1.7-9.3); % Neutrophils 75.6 % (42.2-75.2); Absolute Immature Granulocytes 0.2 10^3/uL (0-0.05); Absolute Lymphocytes 2.6 10^3/uL (1.2-3.4); Absolute Monocytes 1.8 10^3/uL (0.1-0.6); Absolute Neutrophils 14.6 10^3/uL (1.4-6.5); Anisocytosis 2+; Microcytosis 2+; Normal RBC Morphology No; Nucleated Red Blood Cells % 0.1 %; Ovalocytes 1+; Spherocytes 2+
[2024-08-09] MEDS: SODIUM BICARBONATE 1075 MEQ IV (04:28)
[2024-08-09] MEDS: ANCEF 10 IV ×3 (05:53→21:06)
--- NOTE | 2024-08-09 08:03 | W.PN.ID1 ---
Date of Service
Date of Service: August 09, 2024
Today's Communication
Continue abx.
Assessment / Plan
Acute onset low back pain
Staph aureus (MSSA) bacteremia
IVDA (fentanyl, cocaine)
Anemia
Thrombocytopenia
Elevated ESR and CRP
Hepatitis C
COPD
Endometriosis
Chronic anemia
Peptic ulcer disease
Migraines
Hx cervical spine osteomyelitis (2021)
Hx lumbar spine osteomyelitis
Left upper extremity infection with chronic osteomyelitis
Hx Subarachnoid hemorrhage
Recommendations:
MRI imaging of the spinal column is negative for any significant findings. Specifically, no epidural abscess, discitis or vertebral osteomyelitis noted.
Blood cultures with MSSA. Given appearance of left upper extremity, suspect a chronic osteo is the source. Site of injection of drugs (fentanyl, cocaine) unclear, but suspect it was into this wound. [place]ie purulence is noted.
Continue cefazolin 2 g IV every 8 hours.
Blood cultures remain positive for MSSA. Repeating blood cultures today.
Echocardiogram ordered
There is no likelihood of salvaging the left upper extremity, and would consider it as the source of her bacteremia. General Surgery has evaluated and has recommended Ortho eval.
Continue to monitor white count and temperature curve.
Patient remains critically ill and vent dependent in ICU.
����������������������������������������������������������
Chief Complaint
-: Bacteremia and Other (Severe back pain)
Subjective / Review of Systems
Patient seen and examined. Remains on vent at this time.
Vital Signs / Physical Exam
Vital Signs
Vital Signs
Temp Pulse Resp BP Pulse Ox
97.1 F 131 20 139/96 100
08/09/24 07:00 08/09/24 06:00 08/09/24 06:00 08/09/24 06:00 08/09/24 04:10
Physical Exam
Constitutional: Acutely Ill, Chronically Ill and Toxic
Head: Normocephalic
Eyes: No Conjunctival Hemorrhage and Sclera Anicteric
Cardiovascular: S1/S2; Negative S3/S4 or Murmur
Pulmonary: Other (ET tube in place to vent)
Gastrointestinal: Soft, Non Distended and Normal Bowel Sounds
Wound: Other (Left upper extremity wound examined. Positive purulent drainage from several areas. Positive probe to 1 cm directly onto bone.)
Neurological: Other (Sedated)
Objective Data
Lab Data
Lab Results
08/09/24 03:10
08/09/24 03:10
ESR 103 mm/hour (0-20) H 08/06/24 02:14
PT 15.0 Sec (11.4-14.6) H 08/06/24 12:34
INR 1.13 08/06/24 12:34
APTT 41.5 Sec (23.4-35.0) H 08/06/24 12:34
Estimated Creat Clear 56 ml/min 08/09/24 03:10
Lactic Acid 1.0 mmol/L (0.7-2.0) 08/06/24 08:15
Total Bilirubin 0.6 mg/dl (0.2-1.3) 08/09/24 03:10
AST 18 U/L (14-36) 08/09/24 03:10
ALT 12 U/L (0-35) 08/09/24 03:10
Alkaline Phosphatase 175 U/L (38-126) H 08/09/24 03:10
C-Reactive Protein 160.40 mg/L (0.0-10.00) H 08/06/24 02:14
Most recent labs reviewed.
Micro Results:
08/08/24 21:16 Blood Culture - Pending
Blood/Venous
08/07/24 15:29 Blood Culture - Preliminary
Blood/Venous Positive culture in progress
Gram Stain - Preliminary
08/08/24 14:57 Wound Culture - Pending
Arm - Left Gram Stain - Preliminary
08/06/24 02:15 Blood Culture - Preliminary
Blood/Venous Staphylococcus aureus
Gram Stain - Final
08/06/24 02:14 Blood Culture - Preliminary
Blood/Venous Staphylococcus aureus
Gram Stain - Final
08/07/24 15:29 MRSA Screen - Pending
Nose
Imaging:
08/06/2024 CT chest abdomen pelvis without contrast: Evaluation is limited by lack of IV contrast. Suspected small right iliopsoas intramuscular hematoma. There is surrounding inflammatory change/edema within the right paracolic gutter and
extending into the anterior right groin subcutaneous tissue. No loculated fluid collections. Moderate to severe diffuse colonic stool burden may reflect constipation. Splenomegaly noted. There is destructive change of the left humerus midshaft
which is partially visualized and likely reflects a component of chronic osteomyelitis. Please see full dictation for additional detail.
08/06/2024 CT cervical/thoracic/lumbar spine: No acute fractures. Spine is in anatomic alignment. There are spinal fusion and laminectomy changes from C1-C4 without overt complication. Mild to moderate spinal canal and neuronal foraminal stenosis
throughout the mid to lower cervical spine. No paraspinal mass is observed. Visualized lung almeida are clear. Please see full dictation for additional detail.
--- NOTE | 2024-08-09 08:11 | W.PN.INTV ---
Today's Communication / Plan
Recommendations
Continue mechanical ventilation
General Surgery evaluation regarding left upper extremity which appears to be the source of her bacteremia and would need definitive treatment, likely including disarticulation
Best course of action going forward will be to transfer to tertiary care center ([facility]); the is in agreement with this plan
Follow up set of surveillance blood cultures drawn 08/08
Continue with antibiotics, changed vancomycin to Ancef on 08/08 which ID agrees with
Pain control
Try lowering sedation as tolerated so that we can prepare for SBT, if she is clinically stable to do so
Continue bowel regimen while on high-dose fentanyl to help counteract opioid-induced constipation
Anxiolytics as needed
Continue ICU level of care
Assessment
-
Assessment: 54-year-old female with a past medical history of IV drug use, history of staphylococcal arthritis of right shoulder s/p open irrigation and debridement with resection of distal clavicle (06/30/2023), history of hematologists
osteomyelitis of left humerus, s/p left sided above the elbow amputation (performed at [facility]), history of MRSA + MSSA bacteremia, reported history of COPD, hepatitis C virus, PUD, history of cervical/lumbar spine osteomyelitis,
endometriosis, migraine headaches, history of asthma, depression with history of suicide attempt and reported history of MS who presents with severe lower back pain for 2 days. Patient says that pain started suddenly after she was in her home going
downstairs to get a drink. Denies any prior trauma. She does continue to inject cocaine and fentanyl -patient says she uses 14 bags a day. The is not privy to the patient's drug use. Before these past 2 days, the patient was doing okay
with no back pain. She does have a chronic left upper extremity wound which has been there for years. In the ER she was febrile to 100.5 �F, tachycardic to 105, respiratory rate 18, BP 145/94 and saturating 96% on room air. Initial labs
significant for Hb 5.5, WBC 10.9, platelet count 9 (previously 186 on 06/30/2023), ESR elevated at 103, sodium 133, lactate 2.2, and CRP 160. Blood cultures were collected. Imaging was ordered however patient was unable to lay flat despite being
given pain medications, hence imaging unable to be obtained. In the ER she received Tylenol, aztreonam, hydromorphone, Toradol, Versed and 1 L NS 0.9%. Patient had inadequate IV access and difficult stick, hence a left femoral central line was
placed. Given her significant thrombocytopenia with concern for developing opiate withdrawal and her intractable back pain, patient was admitted to the ICU and [facility] [employer] services consulted for additional management/recommendations.
Chronic conditions OVEN DUMPER: History of staphylococcal (MSSA) arthritis of right shoulder s/p right shoulder open irrigation and debridement with resection of distal clavicle (06/30/2023), history of hematogenous osteomyelitis of left humerus, chronic left
upper extremity wound with suspected left humerus osteomyelitis, history of MRSA + MSSA bacteremia (MRSA in June 2021; MSSA in June 2023), reported history of COPD, hepatitis C, PUD, history of cervical/lumbar spine osteomyelitis, Parkinson's esophagus,
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
Impression:
#Intractable lower back pain with concern for lumbar vs thoracic OM vs discitis - ruled out via MRI C/T/L spine as well as CT spine
#Acute respiratory distress due to above requiring intubation (08/07/2024 in ICU)
#Polysubstance abuse/IV drug abuse with suspected withdrawal syndrome
#Acute anemia
#Small right iliopsoas intramuscular hematoma � likely spontaneous due to her severe pancytopenia present on admission
#Severe thrombocytopenia with suspected ITP versus sequelae of sepsis - now plt count normal s/p high dose decadron x 3 doses
#Elevated inflammatory markers (CRP: 160, ESR: 103)
#Nausea/vomiting with nonbloody emesis
#History of MRSA + MSSA bacteremia (MRSA in June 2021; MSSA in June 2023)
#History of COPD/asthma
#Reported history of HCV
#PUD
#History of dilated cardiomyopathy reportedly from cocaine use
#History of depression with prior suicide attempt
#Reported history of MS
Plan:
- Patient presented with severe lower back pain and unfortunately has been unable to lay flat to undergo imaging
- We did obtain imaging on 08/[address] cervical/thoracic/lumbar spine, all showing no acute fracture or external abscess, with overall mild multilevel DDD and facet disease.
- MRI imaging of cervical/thoracic/lumbar spine obtained on 08/07 showing no signs of discitis or osteomyelitis or epidural abscess. There was a right iliopsoas intramuscular hematoma which was seen previously on CT abdomen/pelvis from 08/06/2024
- Most likely source for her Staph aureus bacteremia is her left upper extremity vs endocarditis -> consulted general surgery and Orthopedics -unfortunately the surgery that this patient needs is going to require shoulder disarticulation which is
not performed here in this hospital. Ideally, patient needs to be transferred to a tertiary care center for definitive treatment
- Follow-up set of surveillance blood cultures drawn 08/08 as the blood cultures from every other day since admission had been positive
- Patient does have a PICC line which was placed on the evening of 08/08; if the blood culture which was drawn on 08/08 becomes positive then PICC line will need to be removed
- Continue to tend WBC and monitor temperature curve
- Check echo to assess for endocarditis
- Changed IV vanco to Ancef on 08/08 as her blood Cx are growing MSSA - this was agreed upon by ID
- Will try to get her femoral CVC removed and have peripheral IVs inserted
- Continue with mechanical ventilation with daily SAT/SBT if clinically appropriate
- Maintain plateau pressure <30 and titrate FiO2 + PEEP to keep SpO2 >90-94%
- Continue aspiration precautions; keep HOB >30-45�
- prn nebulized bronchodilators - not currently bronchospastic
- Oropharyngeal + deep ETT suctioning with subglottic as needed
- Daily CXR + blood gas
- Daily vent adjustments as needed based on blood gas and SaO2
- Low level of sedation with goal RASS as 0 to -2
- Given her IV drug use with suspected component of withdrawal from fentanyl with xylazine/medetomidine, we started precedex and ketamine drips on 08/06.
- Unfortunately, Precedex drip stopped overnight on 08/06 - 08/07 due to bradycardia into the 40s. Ketamine drip also stopped as was not leading to any improvement in her agitation or pain.
- Seems that her nausea/vomiting has improved � started micro-induction of buprenorphine with other supportive medications including: clonidine, Zofran, tizanidine and and Tylenol
- Trend QTc if she continues to receive Zofran vs Reglan (current QTc 457ms on 08/06/2024)
- Her platelet count has markedly improved and this is attributed to Decadron which was started to treat strong;y suspected ITP
- she is s/p decadron 40mg once daily x 3 days (last dose 08/08) - this was reviewed with hematology
- Transfuse to keep Hb >7-8 g/dL, and keep plt>50k given her acute anemia
- Maintain euglycemia with goal BG 140-180
- Patient currently has no signs of active GI bleed hence do not believe she needs a GI consult or Protonix at this juncture
- Patient's LDH is elevated hence there is concern for intravascular hemolysis; haptoglobin is 202 (drawn 08/06), hence no concern for intravascular hemolysis
- Patient's coags were checked and PT + PTT were mildly elevated with fibrinogen WNL, hence ruling out DIC as a cause of her thrombocytopenia
- Maintain MAP>65
- Replete electrolytes with K>4, Mg>2
- DVT ppx: Now that platelet count is in normal range, okay to start chemical prophylaxis with Lovenox
Continue with ICU level of care for this critically ill patient. Recommend transfer to tertiary care center for left upper extremity surgery evaluation which will undoubtedly include disarticulation.
Critical care statement: A total of 41 minutes of critical care time was provided for this patient today. This includes management of unstable vital signs, evaluation of the patient at bedside, reviewing the patient's pertinent medical records
including radiographs, microbiology, laboratory evaluations, and discussion with primary team, consultants, pharmacy, nutrition, physical therapy, case management, charge nurse, critical care nursing, and respiratory therapy.
Subjective Dataa
Subjective Data
Date of Service:
Date of Service: August 09, 2024
Chief Complaint: Land Agent Follow Up
Subjective:
Patient was seen this morning and she remains intubated on AC/CMV 20/400/5/60% with PIP 30 cmH2O, VTe 395 cc and breathing at 20 breaths/min. Currently, saturating 92% with heart rate 123 and BP 131/76. Currently seen being sedated with fentanyl
at 200 mcg/hr and propofol at 50 mcg/kg/min. When sedation is lowered or when nursing care is done, she is grimacing and appears extremely uncomfortable. I updated the patient's , Vitaly, and answered all of his questions.
Review of Systems
General: Unobtainable - Sedation
Objective Data
Data Reviewed
Vital Signs / I&O / Oxygen:
Vital Signs
Temp Pulse Resp BP Pulse Ox
98.1 F 133 20 138/85 100
08/09/24 11:00 08/09/24 08:56 08/09/24 06:00 08/09/24 08:56 08/09/24 11:37
Intake and Output
08/08/24 08/09/24 08/10/24
06:59 06:59 06:59
Intake Total 1363.7 / 1399.2 852.0 / 887.5 71.0 / 71.0
Output Total 540 / 540 200 / 200
Balance 823.7 / 859.2 652.0 / 687.5 71.0 / 71.0
SaO2 [A/C] 99
SaO2 100
Physical Exam
General: Respiratory Distress (negative), Chills (negative), Sweats (negative) and Other (Middle-age female, appears chronically ill, with left upper extremity below elbow amputation, currently intubated/sedated)
HEENT: Normocephalic, Anicteric and Other (ETT in place)
Cardiovascular: S1-S2 and Peripheral Edema (negative)
Respiratory: Wheeze (negative), Crackles (negative), Rhonchi (negative), Accessory Resp Muscle Use (mild-moderate due to severe pain) and ET Tube (Mechanical breath sounds heard bilaterally)
GI: Soft, Non Distended, Non Tender and Normal Bowel Sounds
Neurology: Tremors (negative) and Other (Sedated)
Skin: Warm, Dry, Cyanosis (negative), Jaundice (negative) and Other (Lesion in proximal left upper extremity with areas of necrosis)
Labs/Micro/Reports
Lab Data
08/09/24 03:10
08/09/24 03:10
Microbiology
08/07/24 15:29 Blood/Venous Blood Culture - Preliminary
S aureus-Methicillin Sensitive
08/07/24 15:29 Blood/Venous Gram Stain - Preliminary
08/06/24 02:15 Blood/Venous Blood Culture - Final
S aureus-Methicillin Sensitive
08/06/24 02:15 Blood/Venous Gram Stain - Final
08/06/24 02:14 Blood/Venous Blood Culture - Final
S aureus-Methicillin Sensitive
08/06/24 02:14 Blood/Venous Gram Stain - Final
08/07/24 15:29 Nose MRSA Screen - Final
No Methicillin Resistant Staphylococcus aureus isolated.
08/08/24 14:57 Arm - Left Gram Stain - Preliminary
--- NOTE | 2024-08-09 08:49 | PTCARENOTE ---
0700 Assumed care. Patient intubated, sedation: Propofol 50mcg and Fentanyl 175+Bicarb 70/hr . Restraints to b/l wrist
In bed, RASS -2
BP 138/[address];
(S)CMV: 20/400/+5/40% Peak 25; TV 384; RR 23
[2024-08-09] MEDS: SENNA SYRUP 8.8 MG TUBE (08:54)
[2024-08-09] MEDS: NSS (PRESERVATIVE FREE) 10 ML IV (08:55)
[2024-08-09] MEDS: CATAPRES 0.1 MG TUBE ×4 (08:56→21:05)
[2024-08-09] MEDS: PROTONIX IV 40 MG IV (08:56)
[2024-08-09] MEDS: MIRALAX 17 GRAMS TUBE (08:56)
[2024-08-09] MEDS: COLACE LIQUID 100 MG TUBE ×2 (08:56→19:29)
--- NOTE | 2024-08-09 10:03 | W.PN.HOSP.TC ---
Today's Communication/Plan
-
Continue IV Ancef
Continue with microdosing with buprenorphine
Continue with vent per pulmonary
Consult orthopedics
Assessment / Plan
Assessment / Plan
54-year-old female with IV drug abuse presented with back pain. She uses 10 bags of fentanyl a day
Chest [id number] by me bibasilar opacities atelectasis/pneumonia
MRI of the cervical, thoracic and lumbar spine-no evidence of discitis or osteomyelitis or epidural abscess in the cervical spine, thoracic spine or lumbar spine.
Right iliopsoas intramuscular hematoma
CT abdomen and pelvis-small right iliopsoas hematoma-intramuscular. Surrounding inflammatory changes/edema within the right paracolic gutter and extending into the anterior right groin subcutaneous tissues. No loculated fluid collections.
Moderate to severe diffuse colonic stool burden may reflect constipation. Splenomegaly. Destructive changes in the left humerus midshaft partially visualized likely reflecting comment of chronic osteomyelitis.
Humerus [id number] deformity of the left humerus midshaft with chronic erosion and sclerosis with overlying soft tissue wound and keeping with chronic osteomyelitis change progressed from prior. Superimposed acute component cannot be excluded
# TME secondary to drug withdrawal
Since patient was high risk for respiratory depression intubated
Continue fentanyl and Versed
Cannot use Precedex secondary to bradycardia
# MSSA bacteremia and sepsis in the setting of IV drug abuse
Prior history of MSSA bacteremia with osteomyelitis
Cultures positive on 08/06/2024
Cultures pending from 08/07/2024
Follow cultures until negative
Started on vancomycin-antibiotics now changed to Ancef
Infectious disease consultation appreciated
# Acute back pain-nontraumatic
CT abdomen and pelvis raises suspicion for small right iliopsoas intramuscular hematoma surrounded by inflammatory changes and edema within the paracolic gutter
In the setting of bacteremia need to rule out infection
# IV drug abuse Fentanyl and cocaine
Urine drug screen positive for fentanyl, opiates and cocaine
Up to 10 bags of fentanyl and bundle of cocaine
Started on microdosing protocol,
May need rehab if patient is agreeable
# Chronic left upper extremity wound
History of left arm amputation at elbow 2021 at [place]
Tissue culture from 06/30/2023 positive for MSSA
Humerus x-ray chronic osteomyelitis of the left midshaft
General Surgery input noted. Consult orthopedics
CT ordered
Wound care
# Severe microcytic anemia with a hemoglobin of 5.5
No source of external bleeding
Transfused with 4 units of packed red blood cells
Hemoglobin improved
Iron deficiency anemia
Hemoccult stool
# Severe thrombocytopenia with platelets of 9K
Transfused with 3 units of platelets
Hematology input appreciated
Suspicion for ITP.
Platelets normalized
S/p IV steroids
# Constipation-likely narcotic induced-continue bowel regimen
# Hepatitis C- Unclear if treated.
# History of cervical spine issues C2-C3 osteomyelitis with epidural phlegmon was treated at [facility] in June 2021. She had cervical spine incision and drainage and fusion with hardware.
# History of lumbar spine osteomyelitis
# History of right acromioclavicular joint septic arthritis and osteomyelitis June 2023
# History of migraines
# Allergic to penicillin
# Hypoalbuminemia
# History of depression with prior suicide attempt
# History of COPD/asthma
# History of cardiomyopathy from drug abuse
# History of endometriosis/adenomyosis
# History of MRSA bacteremia 2021
# Peptic ulcer disease-added PPI
# Smoker-cessation counseling when extubated
# DVT prophylaxis-SCDs. Start Lovenox when okay with hematology
# Full code
Note that patient does not take any medicines as Op.
Prognosis appears to be poor given ongoing drug abuse and all the medical problems that she has.
Part of this note was created using voice recognition system. Occasional wrong word or��sound alike� substitutions may have inadvertently occurred due to the inherent limitations of voice recognition software. If noted kindly bring it to my
attention for correction.
Total Critical Care Time 32 minutes. I was immediately available to the patient and staff. I personally examined, reviewed labs, diagnostic images/reports, interpretations, treatment plans, discussed patient care with other providers , entered
orders as appropriate and documented the medical record.
Anticipated Discharge: > 48 hours
Subjective/Interval History
-
Date of Service: August 09, 2024
Sedated and intubated on vent
Objective Data
-
Labs:
Laboratory Results
08/09/24
03:10
WBC 19.3 H
Hgb 12.6
Hct 38.4
Plt Count 334 D
Sodium 138
Potassium 4.7
Chloride 111 H
Carbon Dioxide 17 L
BUN 32 H
Creatinine 0.9
Glucose 117 H
Calcium 8.9
Total Bilirubin 0.6
AST 18
ALT 12
Alkaline Phosphatase 175 H
Vital Signs:
Vital Signs
Temp Pulse Resp BP Pulse Ox
97.1 F 133 20 138/85 100
08/09/24 07:00 08/09/24 08:56 08/09/24 06:00 08/09/24 08:56 08/09/24 08:25
I&O
08/08/24 08/09/24 08/10/24
06:59 06:59 06:59
Intake Total 1363.7 / 1399.2 852.0 / 887.5 71.0 / 71.0
Output Total 540 / 540 200 / 200
Balance 823.7 / 859.2 652.0 / 687.5 71.0 / 71.0
Review of Systems
-
Unable to obtain full review of systems at this time due to: Patient Intubation
Physical Exam
-
General: Comfortable
HEENT: Moist Mucous Membranes
Respiratory: Clear to Auscultation (Anteriorly; on ventilator)
Cardiac: Regular Rhythm, S1/S2 and Tachycardic
GI: Soft and Nondistended
Neuro: Sedated
Data Reviewed
-
Labs: Labs Reviewed by me
[2024-08-09] MEDS: SUBLIMAZE 100 MCG IV ×3 (11:06→16:30)
--- NOTE | 2024-08-09 11:06 | W.PN.UPDATE ---
Update Note
Progress Note Update
Pt seen and examined. Pt's extensive chart reviewed. As all are aware she has extensive IVDU hx with large area of ulceration on left humerus.
Pt was intubated and not able to provide hx. She was obtunded and moving in bed. Left arm bandage inspected to reveal approx 8x12cm open wound w. inflammed granulation tissue. I did not see any exposed bone. Humerus xray shows erosion of the
bone and changes consistent with chronic osteomyelitis.
A: Chronic humeral osteomyelitis in setting of longstanding IVDU disorder.
P: This will not be curable with anything short of shoulder disarticulation since the wound is proximal on the upper arm. I am unable to perform a surgery like this due to lack of experience and proximity to major arteries and vessels of the
chest. I am told Vascular surgery and general surgery referred the case to ortho but it is simply beyond my capabilities. If vascular and gen surg at [facility] do not feel able to perform the procedure I would recommend she be transferred to
a tertiary care center or a center with either a tumor or trauma surgical team which would have experience with a procedure like this.
I dont really see any role for us to follow since I cannot offer meaningful treatment and the wound is chronic so we will sign off, please reconsult as needed.
[2024-08-09] MEDS: VERSED 1 MG IV (12:15)
[2024-08-09] MEDS: ZANAFLEX 2 MG TUBE (12:26)
[2024-08-09] MEDS: PRECEDEX 100 IV ×2 (13:56→23:09)
[2024-08-09] MEDS: SUBUTEX 2 MG SL ×3 (14:57→21:05)
[2024-08-09] MEDS: NEURONTIN 300 MG TUBE ×2 (16:07→21:06)
[2024-08-09] MEDS: LOVENOX 40 MG SC (17:57)
--- NOTE | 2024-08-09 18:20 | RESPNOTE ---
per Dr. Jeffery & xray report, ETT in right main stem bronchus. ETT pulled back by 2cm, now 21@lips. Fio2 also weaned to 50% at this time.
[2024-08-09] MEDS: SENNA SYRUP 17.2 MG TUBE (19:28)
--- NOTE | 2024-08-09 19:50 | PTCARENOTE ---
Received pt. at 1900. Pt. currently in bed. Sedated on ventilator. No signs of pain/discomfort. Afebrile. Heart rhythm sinus tachy. Blood pressure normotensive. Ventilator settings verified. Lungs sound coarse. NPO. OG tube in place to LIS.
Incontinent of urine. PureWick drainage device in place. Skin as documented. Vital signs stable at this time.
[2024-08-09 20:48] LABS: Triglycerides 425 mg/dl (10-149)
[2024-08-10] VITALS (20 sets, daily range): BP systolic 92–146; BP diastolic 49–85; BMI 28.3
--- NOTE | 2024-08-10 | PTCARENOTE ---
Pt. assessment unchanged. Remains ventilated and sedated. Vital signs stable at this time.
[2024-08-10] MEDS: DIPRIVAN 100 IV ×3 (01:48→18:32)
[2024-08-10 03:51] LABS: B.E. -2.1 mmol/L; HCO3 20.6 mmol/L (21-28); O2 Saturation % 99.8 % (94-98); PCO2 27 mmHg (32-35); PO2 194 mmHg (83-108); pH 7.49 (7.35-7.45)
[2024-08-10] MEDS: ROXICODONE ORAL SOLUTION 20 MG TUBE ×3 (03:56→11:54)
--- NOTE | 2024-08-10 04:00 | PTCARENOTE ---
Pt. assessment remains unchanged. AM labs drawn. Vital signs stable at this time.
[2024-08-10 04:28] LABS: Blood Urea Nitrogen 25 mg/dl (7-17); Calcium 7.9 mg/dl (8.4-10.2); Carbon Dioxide 20 mmol/L (22-30); Chloride 112 mmol/L (98-107); Estimated Creatinine Clearance 72 ml/min; Glucose 89 mg/dl (70-99); Magnesium 2.5 mg/dl (1.6-2.3); Phosphorus 2.5 mg/dl (2.5-4.5); Potassium 3.7 mmol/L (3.5-5.1); Sodium 138 mmol/L (135-145); Triglycerides 388 mg/dl (10-149); eGFR > 60.00
[2024-08-10 04:37] LABS: Hematocrit 25.6 % (37.0-47.0); Hemoglobin 8.5 g/dL (12.0-16.0); Mean Corp Hgb Conc. 33.2 g/dL (33.0-37.0); Mean Corpuscular Hgb 24.6 pg (27.0-31.0); Mean Corpuscular Volume 74.2 fL (81.0-99.0); Platelet Count 192 10^3/uL (130-400); Red Blood Cell Count 3.45 10^6/uL (4.20-5.40); White Blood Cell Count 8.4 10^3/uL (4.8-10.8)
[2024-08-10] MEDS: ANCEF 10 IV ×2 (05:31→16:54)
[2024-08-10] MEDS: PRECEDEX 100 IV ×3 (05:32→16:35)
--- NOTE | 2024-08-10 08:14 | W.PN.INTV ---
Today's Communication / Plan
Recommendations
Continue mechanical ventilation
General Surgery evaluation regarding left upper extremity which appears to be the source of her bacteremia and would need definitive treatment, likely including disarticulation
Best course of action going forward will be to transfer to [facility] ([facility]); the and the patient are in agreement with this plan
Follow up set of surveillance blood cultures drawn 08/08, and if positive obtain a repeat surveillance set of blood cultures
Continue with antibiotics, changed vancomycin to Ancef on 08/08 which ID agrees with
Pain control
Try lowering sedation as tolerated so that we can prepare for SBT, if she is clinically stable to do so
Continue bowel regimen while on high-dose fentanyl to help counteract opioid-induced constipation
Anxiolytics as needed
Continue microinduction buprenorphine
Start tube feeds
Check CT A/P to evaluate for RP bleed given acute drop of Hb this morning
Continue ICU level of care
Assessment
-
Assessment: 54-year-old female with a past medical history of IV drug use, history of staphylococcal arthritis of right shoulder s/p open irrigation and debridement with resection of distal clavicle (06/30/2023), history of hematologists
osteomyelitis of left humerus, s/p left sided above the elbow amputation (performed at [facility]), history of MRSA + MSSA bacteremia, reported history of COPD, hepatitis C virus, PUD, history of cervical/lumbar spine osteomyelitis,
endometriosis, migraine headaches, history of asthma, depression with history of suicide attempt and reported history of MS who presents with severe lower back pain for 2 days. Patient says that pain started suddenly after she was in her home going
downstairs to get a drink. Denies any prior trauma. She does continue to inject cocaine and fentanyl -patient says she uses 14 bags a day. The is not privy to the patient's drug use. Before these past 2 days, the patient was doing okay
with no back pain. She does have a chronic left upper extremity wound which has been there for years. In the ER she was febrile to 100.5 �F, tachycardic to 105, respiratory rate 18, BP 145/94 and saturating 96% on room air. Initial labs
significant for Hb 5.5, WBC 10.9, platelet count 9 (previously 186 on 06/30/2023), ESR elevated at 103, sodium 133, lactate 2.2, and CRP 160. Blood cultures were collected. Imaging was ordered however patient was unable to lay flat despite being
given pain medications, hence imaging unable to be obtained. In the ER she received Tylenol, aztreonam, hydromorphone, Toradol, Versed and 1 L NS 0.9%. Patient had inadequate IV access and difficult stick, hence a left femoral central line was
placed. Given her significant thrombocytopenia with concern for developing opiate withdrawal and her intractable back pain, patient was admitted to the ICU and Screw Machine Set Up Operator services consulted for additional management/recommendations.
Chronic conditions COLLECTIONS MANAGER: History of staphylococcal (MSSA) arthritis of right shoulder s/p right shoulder open irrigation and debridement with resection of distal clavicle (06/30/2023), history of hematogenous osteomyelitis of left humerus, chronic left
upper extremity wound with suspected left humerus osteomyelitis, history of MRSA + MSSA bacteremia (MRSA in June 2021; MSSA in June 2023), reported history of COPD, hepatitis C, PUD, history of cervical/lumbar spine osteomyelitis, Parkinson's esophagus,
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
Impression:
#Intractable lower back pain with concern for lumbar vs thoracic OM vs discitis - ruled out via MRI C/T/L spine as well as CT spine
#Acute respiratory distress due to above requiring intubation (08/07/2024 in ICU)
#Polysubstance abuse/IV drug abuse with suspected withdrawal syndrome
#Acute anemia
#Small right iliopsoas intramuscular hematoma � likely spontaneous due to her severe pancytopenia present on admission
#Severe thrombocytopenia with suspected ITP versus sequelae of sepsis - now plt count normal s/p high dose decadron x 3 doses
#Elevated inflammatory markers (CRP: 160, ESR: 103)
#Nausea/vomiting with nonbloody emesis
#History of MRSA + MSSA bacteremia (MRSA in June 2021; MSSA in June 2023)
#History of COPD/asthma
#Reported history of HCV
#PUD
#History of dilated cardiomyopathy reportedly from cocaine use
#History of depression with prior suicide attempt
#Reported history of MS
Plan:
- Patient presented with severe lower back pain and unfortunately was unable to lay flat to undergo imaging
- We did obtain imaging on 08/[address] cervical/thoracic/lumbar spine, all showing no acute fracture or external abscess, with overall mild multilevel DDD and facet disease.
- MRI imaging of cervical/thoracic/lumbar spine obtained on 08/07 showing no signs of discitis or osteomyelitis or epidural abscess. There was a right iliopsoas intramuscular hematoma which was seen previously on CT abdomen/pelvis from 08/06/2024
- Most likely source for her Staph aureus bacteremia is her left upper extremity vs endocarditis -> consulted general surgery and Orthopedics - unfortunately the surgery that this patient needs is going to require shoulder disarticulation which is
not performed here in this hospital. Ideally, patient needs to be transferred to a tertiary care center for definitive treatment
- Follow-up set of surveillance blood cultures drawn 08/08 as the blood cultures from every other day since admission had been positive - if positive then send off another surveillance BCx set
- Patient does have a PICC line which was placed on the evening of 08/08; if the blood culture which was drawn on 08/08 becomes positive then may need to remove PICC line; she also has a left femoral CVC line, and this should also be removed as soon
as possible
- Continue to tend WBC and monitor temperature curve
- Check echo to assess for endocarditis
- Changed IV vanco to Ancef on 08/08 as her blood Cx are growing MSSA - this was agreed upon by ID
- Will try to get her femoral CVC removed and have peripheral IVs inserted, although she has such poor venous access that we likely will need to keep the PICC line if her CVC i going to be removed - hospitalist discussed this with ID and they
recommend to remove femoral line and keep PICC in for now
- Continue with mechanical ventilation with daily SAT/SBT if clinically appropriate
- Maintain plateau pressure <30 and titrate FiO2 + PEEP to keep SpO2 >90-94%
- Continue aspiration precautions; keep HOB >30-45�
- prn nebulized bronchodilators - not currently bronchospastic
- Oropharyngeal + deep ETT suctioning with subglottic as needed
- Daily CXR + blood gas
- Daily vent adjustments as needed based on blood gas and SaO2
- Low level of sedation with goal RASS as 0 to -2
- Given her IV drug use with suspected component of withdrawal from fentanyl with xylazine/medetomidine, we started precedex and ketamine drips on 08/06.
- Precedex drip stopped overnight on 08/06 - 08/07 due to bradycardia into the 40s. Ketamine drip also stopped as was not leading to any improvement in her agitation or pain.
- Nausea/vomiting has improved � started micro-induction of buprenorphine with other supportive medications including: clonidine, Zofran, tizanidine and and Tylenol
- Trend QTc if she continues to receive Zofran vs Reglan (current QTc 457ms on 08/06/2024)
- Precedex drip resumed on 08/09 to help lower propofol drip rate
- Her platelet count has markedly improved and this is attributed to Decadron which was started to treat strongly suspected ITP
- she is s/p decadron 40mg once daily x 3 days (last dose 08/08) - this was reviewed with hematology
- Transfuse to keep Hb >7-8 g/dL, and keep plt>50k given her acute anemia
- Maintain euglycemia with goal BG 140-180
- Patient currently has no signs of active GI bleed hence do not believe she needs a GI consult or Protonix at this juncture; BUN elevated likely due to recent steroid use
- Patient's LDH is elevated hence there was concern for intravascular hemolysis; haptoglobin is 202 (drawn 08/06), hence no concern for intravascular hemolysis
- Patient's coags were checked and PT + PTT were mildly elevated with fibrinogen WNL, hence ruling out DIC as a cause of her thrombocytopenia
- CBC from this morning shows a 3 g drop from 12.6 to 8.5 � check CT abdomen/pelvis to evaluate for RP hematoma
- Maintain MAP>65
- Replete electrolytes with K>4, Mg>2
- DVT ppx: Now that platelet count is in normal range, okay to start chemical prophylaxis with Lovenox
Continue with ICU level of care for this critically ill patient. Recommend transfer to tertiary care center for left upper extremity surgery evaluation which will undoubtedly include disarticulation.
Critical care statement: A total of 37 minutes of critical care time was provided for this patient today. This includes management of unstable vital signs, evaluation of the patient at bedside, reviewing the patient's pertinent medical records
including radiographs, microbiology, laboratory evaluations, and discussion with primary team, consultants, pharmacy, nutrition, physical therapy, case management, charge nurse, critical care nursing, and respiratory therapy.
Subjective Dataa
Subjective Data
Date of Service:
Date of Service: August 10, 2024
Chief Complaint: Screw Machine Set Up Operator Follow Up
Subjective:
Pt seen and evaluated this AM. Remains intubated. HR 102, SpO2 100% and BP 112/63. Currently intubated on AC/CMV at 20/400/5/40% with PIP 31 cm water, VTE to 95 cc and breathing at 21 breaths/min. Currently sedated on Precedex at 1 mcg/kg/hr,
fentanyl drip at 125 mcg/hr and propofol at 50 mcg/kg/min.
Review of Systems
General: Unobtainable - Sedation
Objective Data
Data Reviewed
Vital Signs / I&O / Oxygen:
Vital Signs
Temp Pulse Resp BP Pulse Ox
98.2 F 97 20 99/50 100
08/10/24 07:00 08/10/24 08:55 08/10/24 06:00 08/10/24 08:55 08/10/24 08:27
Intake and Output
08/09/24 08/10/24 08/11/24
06:59 06:59 06:59
Intake Total 992.0 / 1027.5 1271.5 / 1317.3 177.8 / 177.8
Output Total 200 / 200 50 / 50
Balance 792.0 / 827.5 1221.5 / 1267.3 177.8 / 177.8
SaO2 [A/C] 100
SaO2 100
Physical Exam
General: Respiratory Distress (negative), Chills (negative), Sweats (negative) and Other (Middle-age female, appears chronically ill, with left upper extremity below elbow amputation, currently intubated/sedated)
HEENT: Normocephalic, Anicteric and Other (ETT in place)
Cardiovascular: S1-S2 and Peripheral Edema (negative)
Respiratory: Wheeze (negative), Crackles (negative), Rhonchi (negative), Accessory Resp Muscle Use (mild-moderate due to severe pain) and ET Tube (Mechanical breath sounds heard bilaterally)
GI: Soft, Non Distended, Non Tender and Normal Bowel Sounds
Neurology: Tremors (negative) and Other (Sedated)
Skin: Warm, Dry, Cyanosis (negative), Jaundice (negative) and Other (Lesion in proximal left upper extremity with areas of necrosis with area covered with bandage)
Labs/Micro/Reports
Lab Data
08/10/24 03:41
08/10/24 03:41
Laboratory Results
08/10/24
03:41
pH 7.49 H
pCO2 27 L
pO2 194 H
HCO3 20.6 L
O2 Delivery Level
Microbiology
08/08/24 14:57 Arm - Left Wound Culture - Preliminary
Staphylococcus aureus
Enterococcus species
08/08/24 14:57 Arm - Left Gram Stain - Preliminary
08/08/24 21:16 Blood/Venous Blood Culture - Preliminary
No Growth in 24 hours- Final report to follow
08/07/24 15:29 Blood/Venous Blood Culture - Preliminary
S aureus-Methicillin Sensitive
08/07/24 15:29 Blood/Venous Gram Stain - Preliminary
08/06/24 02:15 Blood/Venous Blood Culture - Final
S aureus-Methicillin Sensitive
08/06/24 02:15 Blood/Venous Gram Stain - Final
08/06/24 02:14 Blood/Venous Blood Culture - Final
S aureus-Methicillin Sensitive
08/06/24 02:14 Blood/Venous Gram Stain - Final
08/07/24 15:29 Nose MRSA Screen - Final
No Methicillin Resistant Staphylococcus aureus isolated.
--- NOTE | 2024-08-10 08:23 | PTCARENOTE ---
0700 assumed care: intubated and sedated ; Vent (S)CMV: 50%+5; /400/ 20 ; Peak 27; VT 400; 20; Fentanyl 125/12.5; Precedex: 1/15.3; Propofol 45/16.2; infusing via left femoral TL line;
patient intubated and sedated. Moves b/l UE and LE
Normal Sinus Rhythm: 83; BP 99/54; MAP 64 no edema
ETT: #8/21cm ; (S)CMV: 40%+5/400/20; Peak 45; VT 356; RR 27;
No BM since admission : Miralex; Senna adm per order
Incontinent of urine Purwick replaced
Lines; RT PICC Line have not been use. left TL Femoral Line dressing intact and dry
--- NOTE | 2024-08-10 08:44 | W.PN.ID1 ---
Date of Service
Date of Service: August 10, 2024
Today's Communication
Continue antibiotics. Follow pending blood cultures.
Assessment / Plan
Acute onset low back pain
Staph aureus (MSSA) bacteremia
IVDA (fentanyl, cocaine)
Anemia
Thrombocytopenia
Elevated ESR and CRP
Hepatitis C
COPD
Endometriosis
Chronic anemia
Peptic ulcer disease
Migraines
Hx cervical spine osteomyelitis (2021)
Hx lumbar spine osteomyelitis
Left upper extremity infection with chronic osteomyelitis
Hx Subarachnoid hemorrhage
Recommendations:
MRI imaging of the spinal column negative for any significant findings. Specifically, no epidural abscess, discitis or vertebral osteomyelitis noted.
Blood cultures with MSSA. Given appearance of left upper extremity, suspect a chronic osteo is the source. Site of injection of drugs (fentanyl, cocaine) unclear, but suspect it was into this wound. [place]ie purulence is noted. Area probes directly
to bone.
--> Continue cefazolin 2 g IV every 8 hours.
Follow repeat blood cultures
Echocardiogram ordered
There is no likelihood of salvaging the left upper extremity, and would consider it as the source of her bacteremia.
Orthopedics has evaluated the patient and disarticulation is outside the scope of practice. They have recommended transfer to tertiary care center.
Continue to monitor white count and temperature curve.
Patient remains critically ill and vent dependent in ICU.
����������������������������������������������������������
Chief Complaint
-: Bacteremia and Other (Severe back pain)
Subjective / Review of Systems
Patient seen and examined. Remains vent dependent at this time.
Vital Signs / Physical Exam
Vital Signs
Vital Signs
Temp Pulse Resp BP Pulse Ox
98.2 F 83 20 96/53 100
08/10/24 07:00 08/10/24 06:00 08/10/24 06:00 08/10/24 06:00 08/10/24 08:27
Physical Exam
Constitutional: Acutely Ill, Chronically Ill and Toxic
Head: Normocephalic
Eyes: No Conjunctival Hemorrhage and Sclera Anicteric
Cardiovascular: S1/S2; Negative S3/S4 or Murmur
Pulmonary: Other (ET tube in place to vent)
Gastrointestinal: Soft, Non Distended and Normal Bowel Sounds
Wound: Other (Left upper extremity wound examined. Positive purulent drainage from several areas. Positive probe to 1 cm directly onto bone.)
Neurological: Other (Sedated)
Objective Data
Lab Data
Lab Results
08/10/24 03:41
08/10/24 03:41
ESR 103 mm/hour (0-20) H 08/06/24 02:14
PT 15.0 Sec (11.4-14.6) H 08/06/24 12:34
INR 1.13 08/06/24 12:34
APTT 41.5 Sec (23.4-35.0) H 08/06/24 12:34
Estimated Creat Clear 72 ml/min 08/10/24 03:41
Lactic Acid 1.0 mmol/L (0.7-2.0) 08/06/24 08:15
Total Bilirubin 0.6 mg/dl (0.2-1.3) 08/09/24 03:10
AST 18 U/L (14-36) 08/09/24 03:10
ALT 12 U/L (0-35) 08/09/24 03:10
Alkaline Phosphatase 175 U/L (38-126) H 08/09/24 03:10
C-Reactive Protein 160.40 mg/L (0.0-10.00) H 08/06/24 02:14
Most recent labs reviewed.
Micro Results:
08/08/24 21:16 Blood Culture - Preliminary
Blood/Venous No Growth in 24 hours- Final report to follow
08/08/24 14:57 Wound Culture - Preliminary
Arm - Left Gram Stain - Preliminary
08/07/24 15:29 Blood Culture - Preliminary
Blood/Venous S aureus-Methicillin Sensitive
Gram Stain - Preliminary
08/06/24 02:15 Blood Culture - Final
Blood/Venous S aureus-Methicillin Sensitive
Gram Stain - Final
08/06/24 02:14 Blood Culture - Final
Blood/Venous S aureus-Methicillin Sensitive
Gram Stain - Final
08/07/24 15:29 MRSA Screen - Final
Nose No Methicillin Resistant Staphylococcus aureus isolated.
Imaging:
08/06/2024 CT chest abdomen pelvis without contrast: Evaluation is limited by lack of IV contrast. Suspected small right iliopsoas intramuscular hematoma. There is surrounding inflammatory change/edema within the right paracolic gutter and
extending into the anterior right groin subcutaneous tissue. No loculated fluid collections. Moderate to severe diffuse colonic stool burden may reflect constipation. Splenomegaly noted. There is destructive change of the left humerus midshaft
which is partially visualized and likely reflects a component of chronic osteomyelitis. Please see full dictation for additional detail.
08/06/2024 CT cervical/thoracic/lumbar spine: No acute fractures. Spine is in anatomic alignment. There are spinal fusion and laminectomy changes from C1-C4 without overt complication. Mild to moderate spinal canal and neuronal foraminal stenosis
throughout the mid to lower cervical spine. No paraspinal mass is observed. Visualized lung almeida are clear. Please see full dictation for additional detail.
[2024-08-10] MEDS: NSS (PRESERVATIVE FREE) 10 ML IV (08:45)
[2024-08-10] MEDS: COLACE LIQUID 100 MG TUBE ×2 (08:46→19:40)
[2024-08-10] MEDS: MIRALAX 17 GRAMS TUBE (08:49)
[2024-08-10] MEDS: NEURONTIN 300 MG TUBE ×2 (08:49→16:38)
[2024-08-10] MEDS: PROTONIX IV 40 MG IV (08:50)
[2024-08-10] MEDS: SENNA SYRUP 17.2 MG TUBE ×2 (08:53→19:39)
[2024-08-10] MEDS: CATAPRES 0.1 MG TUBE (08:55)
--- NOTE | 2024-08-10 09:30 | W.PN.HOSP.TC ---
Today's Communication/Plan
-
Continue with IV Ancef
Follow blood culture data patient
DC left femoral groin line
Use PICC line-may have to be exchanged at later point.
Assessment / Plan
Assessment / Plan
54-year-old female with IV drug abuse presented with back pain. She uses 10 bags of fentanyl a day
Chest u-mwn-byergsws by me bibasilar opacities atelectasis/pneumonia
MRI of the cervical, thoracic and lumbar spine-no evidence of discitis or osteomyelitis or epidural abscess in the cervical spine, thoracic spine or lumbar spine.
Right iliopsoas intramuscular hematoma
CT abdomen and pelvis-small right iliopsoas hematoma-intramuscular. Surrounding inflammatory changes/edema within the right paracolic gutter and extending into the anterior right groin subcutaneous tissues. No loculated fluid collections.
Moderate to severe diffuse colonic stool burden may reflect constipation. Splenomegaly. Destructive changes in the left humerus midshaft partially visualized likely reflecting comment of chronic osteomyelitis.
Humerus [id number]-[id number] deformity of the left humerus midshaft with chronic erosion and sclerosis with overlying soft tissue wound and keeping with chronic osteomyelitis change progressed from prior. Superimposed acute component cannot be excluded
# TME secondary to drug withdrawal
Since patient was high risk for respiratory depression intubated
Continue fentanyl and Versed
Back on Precedex because of agitation yesterday.
# MSSA bacteremia and sepsis in the setting of IV drug abuse
Prior history of MSSA bacteremia with osteomyelitis
Cultures positive on 08/06/2024
Cultures positive from 08/07/2024
Cultures pending from 08/08
Follow cultures until negative
Started on vancomycin-antibiotics now changed to Ancef
Infectious disease following
# Acute back pain-nontraumatic
CT abdomen and pelvis raises suspicion for small right iliopsoas intramuscular hematoma surrounded by inflammatory changes and edema within the paracolic gutter
In the setting of bacteremia need to rule out infection
# IV drug abuse Fentanyl and cocaine
Urine drug screen positive for fentanyl, opiates and cocaine
Up to 10 bags of fentanyl and bundle of cocaine
Started on microdosing protocol,
Would benefit drug rehab if patient is agreeable. Apparently patient had 21 rehab treatments !
# Chronic left upper extremity wound
History of left arm amputation at elbow 2021 at [facility]
Tissue culture from 06/30/2023 positive for MSSA
Humerus x-ray chronic osteomyelitis of the left midshaft
General Surgery input noted. Consulted orthopedics-recommend transfer to tertiary care center
Continue with wound care
# Severe microcytic anemia with a hemoglobin of 5.5
No source of external bleeding
Transfused with 4 units of packed red blood cells
Hemoglobin improved. Yesterday's hemoglobin 12.6-suspect on arrival. Continue to follow H&H for any downtrending.
Iron deficiency anemia
Hemoccult stool. No obvious external bleeding
# Severe thrombocytopenia with platelets of 9K
Transfused with 3 units of platelets
Hematology input appreciated
Suspicion for ITP.
Platelets normalized
S/p IV steroids
# Constipation-likely narcotic induced-continue bowel regimen
# Hepatitis C- Unclear if treated.
# History of cervical spine issues C2-C3 osteomyelitis with epidural phlegmon was treated at [facility] in June 2021. She had cervical spine incision and drainage and fusion with hardware.
# History of lumbar spine osteomyelitis
# History of right acromioclavicular joint septic arthritis and osteomyelitis June 2023
# History of migraines
# Allergic to penicillin
# Hypoalbuminemia
# History of depression with prior suicide attempt
# History of COPD/asthma
# History of cardiomyopathy from drug abuse
# History of endometriosis/adenomyosis
# History of MRSA bacteremia 2021
# Peptic ulcer disease-added PPI
# Smoker-cessation counseling when extubated
# DVT prophylaxis-SCDs. Start Lovenox when okay with hematology
# Full code
Prognosis appears to be poor given ongoing drug abuse and all the medical problems that she has.
Her drug use is pitting and life-threatening situation.
She now requires possibly disarticulation of the left humerus from the shoulder joint to control bacteremia.
Unfortunately have to wait on patient to be awake and participate in decision making regarding disarticulation of left humerus from the shoulder joint.
Discussed with INCISING MACHINE OPERATOR
Left message to on his voicemail
Part of this note was created using voice recognition system. Occasional wrong word or��sound alike� substitutions may have inadvertently occurred due to the inherent limitations of voice recognition software. If noted kindly bring it to my
attention for correction.
Total Critical Care Time 32 minutes. I was immediately available to the patient and staff. I personally examined, reviewed labs, diagnostic images/reports, interpretations, treatment plans, discussed patient care with other providers , entered
orders as appropriate and documented the medical record.
Anticipated Discharge: > 48 hours
Subjective/Interval History
-
Date of Service: August 10, 2024
Remains intubated.
Yesterday she was restless and tachycardic with elevated blood pressure so Precedex was introduced.
Objective Data
-
Labs:
Laboratory Results
08/10/24
03:41
WBC 8.4
Hgb 8.5 L D
Hct 25.6 L
Plt Count 192 D
HCO3 20.6 L
Sodium 138
Potassium 3.7
Chloride 112 H
Carbon Dioxide 20 L
BUN 25 H
Creatinine 0.7
Glucose 89
Calcium 7.9 L
Vital Signs:
Vital Signs
Temp Pulse Resp BP Pulse Ox
98.2 F 97 20 99/50 100
08/10/24 07:00 08/10/24 08:55 08/10/24 06:00 08/10/24 08:55 08/10/24 08:27
I&O
08/09/24 08/10/24 08/11/24
06:59 06:59 06:59
Intake Total 992.0 / 1027.5 1271.5 / 1271.5
Output Total 200 / 200 50 / 50
Balance 792.0 / 827.5 1221.5 / 1221.5
Review of Systems
-
Unable to obtain full review of systems at this time due to: Patient Intubation
Physical Exam
-
General: No Apparent Distress and Comfortable
Respiratory: Non Labored Respirations; Negative Accessory Resp Muscle Use
Cardiac: Regular Rhythm and S1/S2; Negative Tachycardic
GI: Soft
Neuro: Sedated
Psych: Calm
Data Reviewed
-
Labs: Labs Reviewed by me
[2024-08-10] MEDS: SUBLIMAZE 100 IV ×2 (10:07→16:34)
[2024-08-10] MEDS: SUBUTEX 2 MG SL (12:02)
[2024-08-10] MEDS: SUBLIMAZE 100 MCG IV ×4 (14:09→20:11)
[2024-08-10] MEDS: SUBUTEX 4 MG SL ×2 (14:13→18:35)
--- NOTE | 2024-08-10 14:44 | W.PN.UPDATE ---
Update Note
Progress Note Update
The patient's sedation was lowered and the bedside RN, Evelia Bell, and myself discussed the patient's current clinical situation with her continued bacteria in her blood cultures with the strongly suspected source of her left upper extremity and
the need for definitive surgery which will include amputation, including part of her shoulder. I explained that the surgeons here at this hospital are unable to perform the surgery and that we need to transfer her to another hospital to get this
procedure done safely.
The above was explained to her in simple layman's terms to her satisfaction as she nodded her head in agreement that it was okay to transfer her to a tertiary care center, in this case [facility], for evaluation by
the surgeons there for further treatment.
--- NOTE | 2024-08-10 15:19 | PTCARENOTE ---
Right Femoral line removed by IV team; Pressure dressing in place, dry, and intact. Rt PICC line DL ok to be used; dressing changed. All IV line were switch to new ones when moved from femoral to PICC line
--- NOTE | 2024-08-10 16:31 | W.PN.UPDATE ---
Update Note
Progress Note Update
Once the patient's sedation was lowered and she was more awake I went up to talk to her regarding tertiary care center transfer for optimal care of her bacteremia and chronic osteomyelitis.
She was intubated but she was alert and uncomfortable.
It was more yes no responses.
I told her she has recurrent MSSA bacteremia. She has left humerus chronic osteomyelitis.
I told her that the source of her bacteremia is from her chronic osteomyelitis and she nodded yes that she understands it.
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
I told her the need of transfer to [facility] for further care and again she nodded yes for that.
I discussed with her as well on the phone today.
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 Patient
has had no healing but never seek to care. Now he understands the ID and as well as orthopedic recommendations. Answered all questions regarding the bacteremia and the source control. He is in agreement for transfer to [facility] for
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
I called and discussed the case with medical ICU Dr. Leyva and orthopedics on-call and patient is accepted in transfer to their ICU for further care.
[2024-08-10] MEDS: ROXICODONE ORAL SOLUTION 10 MG TUBE ×2 (16:37→19:39)
[2024-08-10] MEDS: CATAPRES TUBE (16:42)
--- NOTE | 2024-08-10 17:39 | W.PN.UPDATE ---
Update Note
Progress Note Update
I discussed the case with Dr. Cam, the MICU hospitalist, and answered all his questions. Pt is accepted to [facility], awaiting bed.
--- NOTE | 2024-08-10 20:00 | PTCARENOTE ---
Patient received in bed, restless, agitated. Right upper arm restrained. Propofol and Fentanyl gtts running. Precedex gtt off. Restarted at previous dose. Fentanyl bolus x2 given for CPOT 8. Sinus Tachycardia on monitor, afebrile, blood
pressure as documented. Bilateral DPs palpable. #8 ETT at 21cm at the lip, AC 20 TV 400 FIOs2 40% Peep 5, lungs coarse. OG tube at 55cm, placement confirmed. Abdomen round with hypoactive. Purewick maintained. Left upper arm dressing clean dry
and intact. RDL PICC with Fentanyl and Propofol gtts infusing. at bedside.
[2024-08-10] MEDS: ZANAFLEX 2 MG TUBE (20:09)
--- NOTE | 2024-08-10 20:13 | PTCARENOTE ---
Patient in bed. Intubated: ETT #8/21cm Right lip. Vent: AC: 40%/+06/3999/20 Peak 22; 98%. Suction for scan amount of clear white thing secretion.
left Femora line removed per order by IV team. Dressing intact. RT DL PICC line: Propofol 50+Fentanyl 125+ Precedex 1mcg. Fentanyl 100 IV pushes been administered through shift prn order . Restraints RT arm to prevent patient remove ETT. Taking to
CT abdomen and left shoulder . Results pending
Patient awake, agitated, restless. Very difficult to understand . Appears to be in pain but location of green difficult to understand. Facial expressions demonstrate pain of back, abdomen and legs.
ST 103; BP via RT lower leg 133/81.
Abdomen rebound tenderness . abdomen soft non-distended . NJ tube auscultated for placement
Incontinent of urine
--- NOTE | 2024-08-10 21:03 | PTCARENOTE ---
Transport team here, updated report given
--- NOTE | 2024-08-10 21:41 | RESPNOTE ---
pt disconnected from vent for tx to [facility]
--- NOTE | 2024-08-10 21:45 | PTCARENOTE ---
Patient transported to [facility]
[2024-08-12 22:38] LABS: Albumin 2.37 g/dL (3.75-5.01); Alpha 1 Globulin 0.55 g/dL (0.19-0.46); Alpha 2 Globulin 0.74 g/dL (0.48-1.05); SPEP IFE Reflex IFE Done; Total Protein-Electrophoresis 5.8 g/dL (6.3-8.2)
[2024-08-12 22:40] LABS: IgA 68 mg/dL (68-408); IgG 995 mg/dL (768-1632); IgM 920 mg/dL (35-263)
== END 2024-08-10 22:25 | disposition short-term general hospital (02) | DRG 871 ==
LOC: ICU 11:56
PROVIDERS: Nurse Practitioner Primary Care; Physician Assistant; ADMITTING PHYSICIAN Internal Medicine; ATTENDING PHYSICIAN Hospitalist; CONSULT PHYSICIAN Internal Medicine Critical Care Medicine; CONSULT PHYSICIAN Internal Medicine Hematology & Oncology; CONSULT PHYSICIAN Surgery; EMERGENCY PHYSICIAN Student in an Organized Health Care Education/Training Program; OTHER PHYSICIAN Internal Medicine Infectious Disease
PROC: 30243R1 Transfusion of Nonautologous Platelets into Central Vein, Percutaneous Approach (ICD-10-PCS; 2024-08-06)
PROC: 30243N1 Transfusion of Nonautologous Red Blood Cells into Central Vein, Percutaneous Approach (ICD-10-PCS; 2024-08-06)
PROC: 5A1945Z Respiratory Ventilation, 24-96 Consecutive Hours (ICD-10-PCS; 2024-08-07)
PROC: 0BH17EZ Insertion of Endotracheal Airway into Trachea, Via Natural or Artificial Opening (ICD-10-PCS; 2024-08-07)
DX: A41.01 Sepsis due to Methicillin susceptible Staphylococcus aureus (principal); G92.8 Other toxic encephalopathy; J18.9 Pneumonia, unspecified organism; F11.23 Opioid dependence with withdrawal; J98.11 Atelectasis; D69.6 Thrombocytopenia, unspecified; D50.9 Iron deficiency anemia, unspecified; F17.200 Nicotine dependence, unspecified, uncomplicated; Z87.11 Personal history of peptic ulcer disease; Z86.14 Personal history of Methicillin resistant Staphylococcus aureus infection; J44.89 Other specified chronic obstructive pulmonary disease; Z91.51 Personal history of suicidal behavior; Z88.0 Allergy status to penicillin; E88.09 Other disorders of plasma-protein metabolism, not elsewhere classified; K59.03 Drug induced constipation; M54.50 Low back pain, unspecified; G43.909 Migraine, unspecified, not intractable, without status migrainosus; Z80.0 Family history of malignant neoplasm of digestive organs; Z86.19 Personal history of other infectious and parasitic diseases; Z88.5 Allergy status to narcotic agent; Z90.49 Acquired absence of other specified parts of digestive tract; Z90.710 Acquired absence of both cervix and uterus
CPT/HCPCS: 36430; 36600; 71045; 71250; 72125; 72128; 72131; 72156; 72157; 72158; 73060; 73200; 74176; 80048; 80053; 80306; 80307; 81003; 81015; 82248; 82533; 82607; 82728; 82746; 82784; 82805; 83010; 83540; 83550; 83605; 83615; 83735; 84100; 84155; 84165; 84439; 84443; 84478; 85025; 85027; 85384; 85610; 85652; 85730; 86023; 86140; 86334; 86706; 86803; 86850; 86880; 86900; 86901; 86920; 87040; 87070; 87077; 87147; 87150; 87186; 87205; 87340; 87389; 93005; 94002; 94003; 99285; A9575; J7030; P9016; P9073

== ENCOUNTER 2024-11-26 10:21 | Emergency (ER) | payer OTHER, SELFPAY ==
[2024-11-26 10:22] VITALS: BP 105/66
[2024-11-26 11:08] VITALS: BP 92/60
[2024-11-26 12:00] VITALS: BP 85/54
[2024-11-26 12:42] VITALS: BP 90/71
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
[2024-11-26] MEDS: VIBRAMYCIN 100 MG PO (13:13)
== END 2024-11-26 13:47 | disposition home or self-care (01) ==
LOC: EMR 10:21
PROVIDERS: EMERGENCY PHYSICIAN Emergency Medicine; FAMILY PHYSICIAN Family Medicine
DX: L03.115 Cellulitis of right lower limb (principal); J45.909 Unspecified asthma, uncomplicated; F17.200 Nicotine dependence, unspecified, uncomplicated
CPT/HCPCS: 99284; 93971